=== PATIENT | female | born 1970 | race Caucasian/White ===

== ENCOUNTER 2020-01-14 09:27 | Inpatient (IN) | payer BC, SELFPAY ==
[2020-01-14] VITALS (31 sets, daily range): BP systolic 91–136; BP diastolic 51–91; PULSE 57–98; RESP 18–20; TEMP 36.9–37.7; O2SAT 95–100; BMI 25.6; BMI 26.8
--- NOTE | 2020-01-14 09:56 | HMH.EDGENADL ---
ED Disposition Clinical Impression: Vaginal bleeding, Blood loss anemia Uterine fibroid Qualifiers: Uterine leiomyoma location: unspecified location Qualified Code(s): D25.9 - Leiomyoma of uterus, unspecified Disposition: Admitted as Observation Condition on Discharge: Fair - Critical Care Critical Care Time: No Attestation: On , the high probability of a clinically significant, sudden or life threatening deterioration of the following system(s) required my full and direct attention, intervention and personal management. The time I documented below is in addition to time spent performing reported procedures but includes the following listed in this critical care notation. Medical Decision Making - Js Inquiry Pt receiving controlled substance: No Vital Signs: 01/14/20 09:34 01/14/20 11:09 01/14/20 11:28 Temperature 98.5 F Temperature Source Oral Pulse Rate Pulse Rate [Left Radial] 92 H 72 84 Respiratory Rate 18 18 20 Blood Pressure Blood Pressure [Left Arm] 136/91 H 135/85 126/79 Blood Pressure Mean [Left Arm] 106 101 94 Blood Pressure Source Blood Pressure Source [Left Arm] Automatic Cuff Automatic Cuff Blood Pressure Position Blood Pressure Position [Left Arm] Sitting Sitting 02 Sat by Pulse Oximetry 100 96 98 Oxygen Delivery Method Room Air Room Air Room Air 01/14/20 12:55 01/14/20 13:26 01/14/20 13:28 Temperature Temperature Source Pulse Rate Pulse Rate [Left Radial] 81 58 L 57 L Respiratory Rate 18 18 Blood Pressure Blood Pressure [Left Arm] 119/75 116/69 123/75 Blood Pressure Mean [Left Arm] 89 84 91 Blood Pressure Source Blood Pressure Source [Left Arm] Automatic Cuff Automatic Cuff Automatic Cuff Blood Pressure Position Blood Pressure Position [Left Arm] Sitting Sitting Sitting 02 Sat by Pulse Oximetry 98 96 96 Oxygen Delivery Method Room Air Room Air Room Air 01/14/20 13:30 01/14/20 13:33 01/14/20 13:36 Temperature Temperature Source Pulse Rate Pulse Rate [Left Radial] 70 70 72 Respiratory Rate 18 18 Blood Pressure Blood Pressure [Left Arm] 97/61 L 107/67 L 107/67 L Blood Pressure Mean [Left Arm] 73 80 80 Blood Pressure Source Blood Pressure Source [Left Arm] Automatic Cuff Automatic Cuff Blood Pressure Position Blood Pressure Position [Left Arm] Sitting Sitting 02 Sat by Pulse Oximetry 98 98 Oxygen Delivery Method Room Air Room Air 01/14/20 13:41 Temperature 98.5 F Temperature Source Pulse Rate 70 Pulse Rate [Left Radial] Respiratory Rate 18 Blood Pressure 106/70 L Blood Pressure [Left Arm] Blood Pressure Mean [Left Arm] Blood Pressure Source Automatic Cuff Blood Pressure Source [Left Arm] Blood Pressure Position Sitting Blood Pressure Position [Left Arm] 02 Sat by Pulse Oximetry Oxygen Delivery Method Room Air - Lab Data Lab results reviewed: Yes: I reviewed the patient's lab results. Lab Results 01/14/20 10:00: WBC 6.5, RBC 3.62 L, Hgb 9.1 L, Hct 28.2 L, MCV 78.0 L, MCH 25.2 L, MCHC 32.4, RDW 16.4, Plt Count 207, MPV 7.9, Neut % (Auto) 68.9, Lymph % (Auto) 23.5, [place] % (Auto) 4.6, Eos % (Auto) 2.7, Baso % (Auto) 0.4, Neut # (Auto) 4.5, Lymph # (Auto) 1.5, [place] # (Auto) 0.3, Eos # (Auto) 0.2, Baso # (Auto) 0.0 01/14/20 10:00: Sodium 136, Potassium 4.2, Chloride 107, Carbon Dioxide 20 L, Anion Gap 13.2, BUN 12, Creatinine 0.80, Estimated Creat Clear 87, Estimated GFR 77, Est GFR ( Amer) 93, Glucose 442 H*, Calcium 10.5 H, Total Bilirubin 0.3, AST 11 L, ALT 14, Alkaline Phosphatase 74, Total Protein 7.0, Albumin 4.0, Globulin 3.0, Albumin/Globulin Ratio 1.3 01/14/20 10:00: Serum HCG, Qual Negative 01/14/20 10:00: SARS-CoV-2 IgG Ab (Rapid) Positive A, SARS-CoV-2 IgM Ab (Rapid) Negative 01/14/20 12:22: Blood Type A Positive, Antibody Screen Negative, Crossmatch (AHG) See Detail Result diagrams: 01/14/20 16:42 01/14/20 10:00 Orders (Tests/Meds): ED MEDICATIONS Generic Name Dose Route S
[2020-01-14 10:16] LABS: Basophils % 0.4 % (0.1-2.0); Eosinophils # 0.2 K/mm3 (0.0-0.4); Eosinophils % 2.7 % (0.1-12.0); Hematocrit 28.2 % (37.0-47.0); Hemoglobin 9.1 g/dL (12.2-16.2); Lymphocytes # 1.5 K/mm3 (0.7-4.5); Lymphocytes % 23.5 % (10-50); Mean Corpuscular HGB Conc 32.4 g/dL (31.8-35.4); Mean Corpuscular Hemoglobin 25.2 pg (27.0-31.2); Mean Platelet Volume 7.9 fl (7.4-10.4); Monocytes # 0.3 K/mm3 (0.1-1.0); Monocytes % 4.6 % (1.7-9.3); Neutrophils # 4.5 K/mm3 (1.8-7.8); Neutrophils % 68.9 % (37.0-80.0); Platelet Count 207 K/mm3 (142-424); Red Blood Count 3.62 M/mm3 (4.20-5.40); Red Cell Distribution Width 16.4 % (11.5-17.5); White Blood Count 6.5 K/mm3 (4.8-10.8)
[2020-01-14 10:17] LABS: Chloride 107 mmol/L (98-107)
[2020-01-14 10:18] LABS: Potassium 4.2 mmoL/L (3.5-5.1); Sodium 136 mmol/L (136-145)
[2020-01-14 10:20] LABS: Alanine Aminotransferase 14 U/L (12-78); Aspartate Amino Transferase 11 U/L (14-36); Blood Urea Nitrogen 12 mg/dl (7-17); Creatinine Clearance Estimated 87 mL/min (50-200); Estimated Glomerular Filt Rate 77 ml/min (>60); GFR (African American) 93 ML/MIN (>60)
[2020-01-14 10:21] LABS: Albumin/Globulin Ratio 1.3 (1.1-1.8); Alkaline Phosphatase 74 U/L (38-126); Anion Gap 13.2 mEq/L (5-15); Bilirubin,Total 0.3 mg/dl (0.2-1.3); Calcium 10.5 mg/dl (8.4-10.2); Carbon Dioxide 20 mmol/L (22.0-30.0)
[2020-01-14 10:24] LABS: Glucose 442 mg/dl (74-100)
--- NOTE | 2020-01-14 10:24 | PC.NURSE ---
elevated glucose reported to dr baca. awaiting further orders.
[2020-01-14 10:26] LABS: HCG Qualitative, Serum Negative (Negative)
--- NOTE | 2020-01-14 10:27 | PC.NURSE ---
assisted MD with pelvic exam at this time
--- NOTE | 2020-01-14 10:30 | PC.NURSE ---
DR STEVENS SPEAKING TO DR ALFARO
--- NOTE | 2020-01-14 10:37 | US_ITS ---
PROCEDURE: US PELVIC CLINICAL INDICATION: vaginal bleeding, enlarged uterus COMPARISON: No exams were available for comparison FINDINGS: The uterus is enlarged at 16 by 11 x 11 cm. The endometrium is thickened at 1.8 cm. There are multiple uterine fibroids with at least 6 which are measured measuring at 7 x 6.8 cm, 3 x 2.9 cm, 2.8 x 3.4 cm, 2 x 1.7 cm, 4.2 x 2.9 cm, 2.7 x 2.2 cm. No adnexal mass evident. No cul-de-sac fluid. IMPRESSION: Enlarged uterus with multiple uterine fibroids Dictated by: Emre Pinon MD 01/14/2020 15:02 Emre Pinon MD in OV 01/14/2020 15:02
--- NOTE | 2020-01-14 10:41 | PC.NURSE ---
Dr Caprice interiano
--- NOTE | 2020-01-14 10:41 | PC.NURSE ---
Dr Hurley speaking with Dr Vasques
--- NOTE | 2020-01-14 10:46 | PC.NURSE ---
Dr Vincent interiano
--- NOTE | 2020-01-14 11:14 | PC.NURSE ---
positive igg results given to dr baca. awaiting new orders.
[2020-01-14 11:15] LABS: Coronavirus 19 IgG Antibody Positive (Negative); Coronavirus 19 IgM Antibody Negative (Negative)
--- NOTE | 2020-01-14 11:38 | PC.NURSE ---
pt to ultrasound
--- NOTE | 2020-01-14 11:44 | PC.NURSE ---
contacted lab to check on type and screen being drawn on pt. Notified lab that pt is going to ultrasound at this time
--- NOTE | 2020-01-14 12:28 | PC.NURSE ---
pt return from radiology, lab at [facility]
--- NOTE | 2020-01-14 12:47 | PC.NURSE ---
entered room to administer insulin as ordered per JUN, pt reports she has taken her insulin since being here in the ER states is was approx 2 hours ago. fsbs [id number] at this time notified ER MD who states not to give insulin.
[2020-01-14 12:49] LABS: POC Glucose,Bedside 377 (70-110)
--- NOTE | 2020-01-14 12:50 | PC.NURSE ---
Spoke with ER staff to clarify if patient is to be admitted to Med Surg or OB. Per Angelique, who clarified with Dr Hurley, pt is to be admitted to Med Surg for Dr Perez with Dr Vasques consulting.
--- NOTE | 2020-01-14 13:24 | PC.NURSE ---
report called to jesika nguyen rn on second floor at this time
--- NOTE | 2020-01-14 13:30 | PC.NURSE ---
pt significant other comes out of room states pt just passed a large blood clot. Entered room to check on pt, pt reports nauseated, pale in color, c/o lower back pain and lower abd pain. Blood clot trash can noted to be approx baseball size. Pt reports pain began after passing blood clot. Notified ER MD, ER MD at . ER MD gave verbal orders for pt. will continue to monitor.
--- NOTE | 2020-01-14 13:41 | PC.NURSE ---
gave updated report to ruchirn on second floor at this time, r/t pt passing blood clot and medications administered per mar and new VS.
--- NOTE | 2020-01-14 14:14 | HMH.CONS ---
*Admission Date: 01/14/20 *Reason for consult:: Medical management of anticoagulation *History of present illness: Description of Symptoms (Recalled from ER Triage Doc. by RN): Pt reports heavy vaginal bleeding for approx 1 week, pt reports menstrual type cramping, no clots noted, bright red blood. Pt states is using 1 pad approx every 2-3 hours. Pt reports feeling weak for 2-3 days. Pt reports she is on blood thinners r/t hx of CVA. Pt states approx 3 months ago she was admitted to [facility], [place] and recieved a blood transfusion r/t heavy menstrual bleeding. Pt states she was started on Megestrol BID to help with heavy bleeding. Pt states she missed 3 doses when she first began her menstural period this month r/t being out of her medication. - History of Present Illness HPI narrative: Complains of heavy vaginal bleeding for 1 week with pelvic cramping. Using 1 pad every 2-3 hours. No syncope. She says she had the same thing about 3 months ago and was admitted for 3 days to [facility] in [place] and received a transfusion. She says that she was told she has a fibroid. She was started on megestrol acetate. She says that she missed 3 days of that medication because she could not get to the pharmacy to filler picker the prescription and after she restarted the medication the bleeding started. She says she was supposed to see a product design engineer for follow-up after her admission but never did because she was busy with work and family matters. She is on Eliquis because of previous CVA. She moved here about a month and a half ago. She does not yet have a physician or product design engineer in this area. Her primary care doctor is in [place] also. Above note per emergency room doctor. Patient was in her normal state of health until July of this year when she suffered a stroke and was confined to [facility] for about a week. She has a residual expressive aphasia and also underwent rehabilitation stay at [facility]. Work-up to determine the cause of her stroke was extensive and during this work-up she was found to have heterozygosity for factor V Leiden deficiency. Referred to hematology-she cannot remember the name-and she was started on Eliquis 5 mg twice daily and antiplatelet therapy was continued. Her neurologist has told her that he does not think the factor V Leiden deficiency caused her stroke but that it was from blood pressure and stress. Even before the stroke she had some problems with significant menorrhagia, but after Eliquis was started she began to bleed even more heavily. She was admitted to [facility] as noted above 3 months ago, received blood transfusions and discussions are a hysterectomy were undertaken but this was not done. Megestrol was prescribed, she, as noted above has not been compliant on a daily basis with this and came back to the [facility] emergency room this morning with significant bleeding and was anemic. Admitted to gynecology service. 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 Lives with boyfriend and her 17-year-old daughter who is currently 18 weeks Family Hx:: Cancer, Coronary Artery Disease, Stroke Review of Systems - Review of Systems Review of systems:: pertinent sys
--- NOTE | 2020-01-14 14:30 | PC.NURSE ---
PINK PAD WEIGHT OF 77GMS AT THIS TIME, PATIENT REPORTS PASSING SOFTBALL SIZED CLOT.
--- NOTE | 2020-01-14 15:30 | PC.NURSE ---
peach pad weight of 51 gms
--- NOTE | 2020-01-14 16:20 | PC.NURSE ---
dr. carrion at bedside. report given
--- NOTE | 2020-01-14 16:39 | HMH.HP ---
*Admission Date: 01/14/20 *Chief complaint: Heavy vaginal bleeding, fibroid uterus, anemia, insulin-dependent diabetes *History of present illness: She is a 49-year-old 3 para 2 aborta 1 who complains of heavy vaginal bleeding for 1 week with pelvic cramping. Using 1 pad every 2-3 hours. No syncope. She says she had the same thing about 3 months ago and was admitted for 3 days to [facility] in [place] and received a transfusion. She says that she was told she has a fibroid. She was started on megestrol acetate. She says that she missed 3 days of that medication because she could not get to the pharmacy to spanish moss picker the prescription and after she restarted the medication the bleeding started. She says she was supposed to see a feather sawyer for follow-up after her admission but never did because she was busy with work and family matters. She is on Eliquis because of previous CVA that happened in September of this year. She is known to have factor V Leiden. Ultrasound today shows that she has at least 6 fibroids within the umbilicus. Her hemoglobin is just over 9. She looks pale. She moved here about a month and a half ago. She does not yet have a physician or feather sawyer in this area. Her primary care doctor is in [place] also. She is a diabetic and does not have a la. She says she takes 53 units a day of insulin and today her blood sugar is over 400. [facility] History I have reviewed the patient's past medical history: Yes Medical History: Reports:: Cerebrovascular Accident, Diabetes Mellitus Type 2, Hyperlipidemia, Hypertension, Migraine Denies:: Cancer, Diabetes Mellitus Type 1, MRSA *Have you ever received a pneumonia vaccine?: No *Have you received a flu vaccine this season?: No Other Medical History: Reports: Anemia Other Surgeries: Yes: Tubal Ligation, Other (Back surgery in the remote past) Amputation: No Fractures: No - *Social History Last grade of school completed: Some college Smoking Status: Never smoker Alcohol Intake: never *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[employer]) Housing: house Household Members: significant other, children *Travel in the last 8 weeks: None Family Hx:: Cancer, Coronary Artery Disease, Stroke Review of Systems - Review of Systems Review of systems:: pertinent systems reviewed and negative unless documented below - *Neurologic Reports abnormal speech, Reports dizziness, Reports headache(s), Denies abnormal walking, Denies abnormal hearing, Denies seizure-like activity, Denies frequent falls Meds Home Medications Medication Instructions Recorded Confirmed Type Apixaban [Eliquis] 5 mg PO BID 01/14/20 01/14/20 History Ascorbic Acid [Vitamin C 500mg 500 mg PO DAILY 01/14/20 01/14/20 History tablet] Atorvastatin Calcium [Lipitor 80mg 80 mg PO HS 01/14/20 01/14/20 History Tablet*] Butalb/Acetaminophen/Caffeine 1 each PO NEEDED PRN 01/14/20 01/14/20 History [Fioricet 50-300-40 mg Capsule] Ferrous Sulfate [Slow Fe] 142 mg PO DAILY 01/14/20 01/14/20 History Insulin Detemir [Levemir 53 unit SQ DAILY 01/14/20 01/14/20 History 100units/mL 3mL flexpen] Metoprolol Succinate [Metoprolol 12.5 mg PO BID 01/14/20 01/14/20 History Succinate 25mg Tablet*] Pantoprazole Sodium [Protonix 40mg 40 mg PO DAILY 01/14/20 01/14/20 History tablet] Potassium Chloride 20 meq PO DAILY 01/14/20 01/14/20 History Sertraline HCl [Zoloft] 150 mg PO DAILY 01/14/20 01/14/20 History Topiramate 50 mg PO DAILY 01/14/20 01/14/20 History Allergies Allergy/AdvReac Type Severity Reaction Status Date / Time No Known Allergies Allergy Verified 01/14/20 09:49 Exam Vital signs and Labs for Last 24 Hours: Temp Pulse Resp BP Pulse Ox 98.6 F 72 18 113/66 99 01/14/20 16:00 01/14/20 16:00 01/14/20 16:00 01/14/20 16:00 01/14/20 16:00 Laboratory Results - last 24 hr 01/14/20 10:00: WBC 6.5, RBC 3.62 L, Hgb 9.1 L, Hct 28.2 L, MCV 78.0 L,
[2020-01-14 16:43] LABS: POC Glucose,Bedside 477 (70-110)
--- NOTE | 2020-01-14 17:00 | PC.NURSE ---
peach pad weighed at this time 67gms. Silver dollar size clot noted in toilet
[2020-01-14 17:26] LABS: Basophils % 0.2 % (0.1-2.0); Eosinophils # 0.1 K/mm3 (0.0-0.4); Eosinophils % 1.7 % (0.1-12.0); Lymphocytes # 1.2 K/mm3 (0.7-4.5); Lymphocytes % 14.4 % (10-50); Mean Corpuscular HGB Conc 31.1 g/dL (31.8-35.4); Mean Corpuscular Hemoglobin 25.2 pg (27.0-31.2); Mean Corpuscular Volume 80.9 fl (81-99); Mean Platelet Volume 8.2 fl (7.4-10.4); Monocytes # 0.4 K/mm3 (0.1-1.0); Monocytes % 4.4 % (1.7-9.3); Neutrophils # 6.5 K/mm3 (1.8-7.8); Neutrophils % 79.4 % (37.0-80.0); Platelet Count 198 K/mm3 (142-424); Red Blood Count 3.03 M/mm3 (4.20-5.40); Red Cell Distribution Width 16.4 % (11.5-17.5); White Blood Count 8.1 K/mm3 (4.8-10.8)
[2020-01-14 17:29] LABS: Hematocrit 24.5 % (37.0-47.0); Hemoglobin 7.6 g/dL (12.2-16.2)
--- NOTE | 2020-01-14 19:33 | PC.NURSE ---
Pt is alert and oriented and able to make needs known. Pt is recieving blood, Dr. Vasques notified of critical hgb. CB in reach. Lungs cta. Has continued to have bleeding- see documentation. VSS at this time. Continues on RA. Dr. Vasques also notified of 477 blood suagr and ordered 30 units ssi. Pt tolerated well. Dr. Kaur also ordered megace per jun.
[2020-01-14 20:20] LABS: POC Glucose,Bedside 333 (70-110)
--- NOTE | 2020-01-14 20:44 | PC.NURSE ---
peach pad weight at 63 grams.saturated with bright red blood and a half dollar size clot noted in toilet
[2020-01-15] VITALS (7 sets, daily range): BP systolic 104–131; BP diastolic 60–86; PULSE 74–97; RESP 16–19; TEMP 36.9–37.5; O2SAT 97–99; BMI 27.8
[2020-01-15 00:33] LABS: Hematocrit 30.1 % (37.0-47.0)
[2020-01-15 00:35] LABS: Hemoglobin 10.2 g/dL (12.2-16.2)
--- NOTE | 2020-01-15 03:41 | PC.NURSE ---
Pt is alert and oriented x4. Rested well with eyes closed this shift. No acute changes noted from previous shift. Tolerated 2 units of blood well with no complaints. Skin noted pallor in color. PERRLA. Bilateral hand examining officer noted equal and strong. Cap refill < 3 seconds. Bilateral breath sounds noted clear t/o upon auscultation. Tolerated RA well with no c/o SOA. RR noted even and unlabored. Pt c/o abdominal cramping t/o shift. Urine noted with hematuria and small/large blood clots. Adequate urine output noted. Abdomen noted non-tender upon palpation, soft and round. No edema noted. Refused TEDS. VSS. Remains safe. Remains NPO since 0000. Call light within reach. Will continue to monitor.
--- NOTE | 2020-01-15 05:25 | PC.NURSE ---
[place] pad saturated with blood noted at a wt of 73 gm this am. Hematuria noted at 400 ml output. Small blood clots noted. Pt bled through bed sheets unknowingly while resting with eyes closed. Unable to weigh this blood due to being dried.
[2020-01-15 05:31] LABS: POC Glucose,Bedside 216 (70-110)
[2020-01-15 06:43] LABS: Basophils % 0.4 % (0.1-2.0); Eosinophils # 0.2 K/mm3 (0.0-0.4); Eosinophils % 2.4 % (0.1-12.0); Hematocrit 28.4 % (37.0-47.0); Hemoglobin 9.5 g/dL (12.2-16.2); Lymphocytes # 1.8 K/mm3 (0.7-4.5); Lymphocytes % 23.2 % (10-50); Mean Corpuscular HGB Conc 33.6 g/dL (31.8-35.4); Mean Corpuscular Hemoglobin 27.1 pg (27.0-31.2); Mean Corpuscular Volume 80.8 fl (81-99); Mean Platelet Volume 8.2 fl (7.4-10.4); Monocytes # 0.4 K/mm3 (0.1-1.0); Monocytes % 5.6 % (1.7-9.3); Neutrophils # 5.3 K/mm3 (1.8-7.8); Neutrophils % 68.5 % (37.0-80.0); Platelet Count 193 K/mm3 (142-424); Red Blood Count 3.52 M/mm3 (4.20-5.40); Red Cell Distribution Width 18.2 % (11.5-17.5); White Blood Count 7.8 K/mm3 (4.8-10.8)
[2020-01-15 06:50] LABS: Chloride 110 mmol/L (98-107); Potassium 3.8 mmoL/L (3.5-5.1); Sodium 140 mmol/L (136-145)
[2020-01-15 06:53] LABS: Anion Gap 12.8 mEq/L (5-15); Blood Urea Nitrogen 11 mg/dl (7-17); Calcium 9.8 mg/dl (8.4-10.2); Carbon Dioxide 21 mmol/L (22.0-30.0); Creatinine Clearance Estimated 105 mL/min (50-200); Estimated Glomerular Filt Rate 90 ml/min (>60); GFR (African American) 109 ML/MIN (>60); Glucose 230 mg/dl (74-100)
--- NOTE | 2020-01-15 08:22 | P.CONPHA_ITS ---
[facility] Pharmacy VTE Monitoring - Patient Demographics Admission date: 01/15/20 Report Date: 01/15/20 Time: 08:22 Allergies/Adverse Reactions: Patient Allergies No Known Allergies Allergy (Verified 01/14/20 09:49) Height: 1.55 m Weight: 66.723 kg Patient Problems: Current Active Problems Vaginal bleeding (Acute) Uterine fibroid (Acute) Blood loss anemia (Acute) Factor V Leiden mutation (Acute) History of stroke (Acute) - VTE Risk Labs: VTE Related Lab Results Hgb 9.5 g/dL (12.2-16.2) L 01/15/20 06:30 Hct 28.4 % (37.0-47.0) L 01/15/20 06:30 Plt Count 193 K/mm3 (142-424) 01/15/20 06:30 BUN 11 mg/dl (7-17) 01/15/20 06:30 Creatinine 0.70 mg/dl (0.52-1.04) 01/15/20 06:30 Estimated Creat Clear 105 mL/min (50-200) 01/15/20 06:30 Was VTE Risk Assessment Performed: Yes VTE Score: 4 VTE Risk Level: Low Risk Clinical Trial Participant: No - Prophylaxis VTE Prophylaxis Ordered?: Yes Types of VTE Prophylaxis: TEDS Knee High, Pharmacological Pharmacologic Type: Enoxaparin
--- NOTE | 2020-01-15 08:38 | HMH.PHAINT ---
home medication reconciliation completed using list from home pharmacy
--- NOTE | 2020-01-15 08:45 | HMH.ACPN2 ---
Internal Medicine - PN: Subj *Date: 01/15/20 *Time: 08:45 Interval history: Internal medicine consult follow-up note: Patient received 2 units of packed cells overnight. Feels a little bit better energy curtis. Reports bleeding is about the same. Glucose control has been adequate on sliding scale insulin. Exam Vital signs and Labs for Last 24 Hours: Temp Pulse Resp BP Pulse Ox 98.4 F 80 19 131/78 99 01/15/20 08:00 01/15/20 08:00 01/15/20 08:00 01/15/20 08:00 01/15/20 08:00 Laboratory Results - last 24 hr 01/14/20 10:00: WBC 6.5, RBC 3.62 L, Hgb 9.1 L, Hct 28.2 L, MCV 78.0 L, MCH 25.2 L, MCHC 32.4, RDW 16.4, Plt Count 207, MPV 7.9, Neut % (Auto) 68.9, Lymph % (Auto) 23.5, [place] % (Auto) 4.6, Eos % (Auto) 2.7, Baso % (Auto) 0.4, Neut # (Auto) 4.5, Lymph # (Auto) 1.5, [place] # (Auto) 0.3, Eos # (Auto) 0.2, Baso # (Auto) 0.0 01/14/20 10:00: Sodium 136, Potassium 4.2, Chloride 107, Carbon Dioxide 20 L, Anion Gap 13.2, BUN 12, Creatinine 0.80, Estimated Creat Clear 87, Estimated GFR 77, Est GFR ( Amer) 93, Glucose 442 H*, Calcium 10.5 H, Total Bilirubin 0.3, AST 11 L, ALT 14, Alkaline Phosphatase 74, Total Protein 7.0, Albumin 4.0, Globulin 3.0, Albumin/Globulin Ratio 1.3 01/14/20 10:00: Serum HCG, Qual Negative 01/14/20 10:00: SARS-CoV-2 IgG Ab (Rapid) Positive A, SARS-CoV-2 IgM Ab (Rapid) Negative 01/14/20 12:22: Blood Type A Positive, Antibody Screen Negative, Crossmatch (AHG) See Detail 01/14/20 12:42: POC Glucose 377 H* 01/14/20 13:06: Blood Type Confirm A Positive 01/14/20 16:36: POC Glucose 477 H* 01/14/20 16:42: WBC 8.1, RBC 3.03 L, Hgb 7.6 L*, Hct 24.5 L, MCV 80.9 L, MCH 25.2 L, MCHC 31.1 L, RDW 16.4, Plt Count 198, MPV 8.2, Neut % (Auto) 79.4, Lymph % (Auto) 14.4, [place] % (Auto) 4.4, Eos % (Auto) 1.7, Baso % (Auto) 0.2, Neut # (Auto) 6.5, Lymph # (Auto) 1.2, [place] # (Auto) 0.4, Eos # (Auto) 0.1, Baso # (Auto) 0.0 01/14/20 20:10: POC Glucose 333 H* 01/15/20 00:28: Hgb 10.2 L D, Hct 30.1 L 01/15/20 05:14: POC Glucose 216 H 01/15/20 06:30: WBC 7.8, RBC 3.52 L, Hgb 9.5 L, Hct 28.4 L, MCV 80.8 L, MCH 27.1, MCHC 33.6, RDW 18.2 H, Plt Count 193, MPV 8.2, Neut % (Auto) 68.5, Lymph % (Auto) 23.2, [place] % (Auto) 5.6, Eos % (Auto) 2.4, Baso % (Auto) 0.4, Neut # (Auto) 5.3, Lymph # (Auto) 1.8, [place] # (Auto) 0.4, Eos # (Auto) 0.2, Baso # (Auto) 0.0 01/15/20 06:30: Sodium 140, Potassium 3.8, Chloride 110 H, Carbon Dioxide 21 L, Anion Gap 12.8, BUN 11, Creatinine 0.70, Estimated Creat Clear 105, Estimated GFR 90, Est GFR ( Amer) 109, Glucose 230 H D, Calcium 9.8 I & O for Last 24 hours: Intake & Output 01/12/20 01/13/20 01/14/20 01/15/20 11:59 11:59 11:59 11:59 Intake Total 3410 / 3410 Output Total 400 / 400 Balance 3010 / 3010 Weight 140 lb 147 lb 1.6 oz Narrative: Pleasant, talkative, less pale. Lungs clear, heart rate regular. Abdomen soft. No neurologic deficits. No edema. Assessment and Plan (1) Factor V Leiden mutation Current visit: Yes Status: Acute Category: Medical Code(s): D68.51 - Activated protein C resistance (2) History of stroke Current visit: Yes Status: Acute Category: Medical Code(s): Z86.73 - Personal history of transient ischemic attack (TIA), and cerebral infarction without residual deficits (3) Vaginal bleeding Current visit: Yes Status: Acute Category: Medical Code(s): N93.9 - Abnormal uterine and vaginal bleeding, unspecified (4) Uterine fibroid Current visit: Yes Status: Acute Qualifiers: Uterine leiomyoma location: unspecified location Qualified Code(s): D25.9 - Leiomyoma of uterus, unspecified Category: Medical Code(s): D25.9 - Leiomyoma of uterus, unspecified (5) Blood loss anemia Current visit: Yes Status: Acute Category: Medical Code(s): D50.0 - Iron deficiency anemia secondary to blood loss (chronic) - Assessment and plan all Dx Assessment and Plan for all problems:: Given questionable indication f
--- NOTE | 2020-01-15 09:10 | HMH.ACPN2 ---
Internal Medicine - PN: Subj *Date: 01/15/20 *Time: 09:10 Interval history: She is doing a little better although she continues to have active vaginal bleeding. She says that she soaked a couple of pads overnight again. She received blood yesterday and her hemoglobin went to 10.2 after the transfusion. This morning it is 9.5. She denies any shortness of breath or chest pain. She denies any calf tenderness. She is receiving Lovenox 40 mEq subcutaneous daily. She has stopped her Eliquis. Her last dose was yesterday morning. Exam Vital signs and Labs for Last 24 Hours: Temp Pulse Resp BP Pulse Ox 98.4 F 80 19 131/78 99 01/15/20 08:00 01/15/20 08:00 01/15/20 08:00 01/15/20 08:00 01/15/20 08:00 Laboratory Results - last 24 hr 01/14/20 10:00: WBC 6.5, RBC 3.62 L, Hgb 9.1 L, Hct 28.2 L, MCV 78.0 L, MCH 25.2 L, MCHC 32.4, RDW 16.4, Plt Count 207, MPV 7.9, Neut % (Auto) 68.9, Lymph % (Auto) 23.5, [place] % (Auto) 4.6, Eos % (Auto) 2.7, Baso % (Auto) 0.4, Neut # (Auto) 4.5, Lymph # (Auto) 1.5, [place] # (Auto) 0.3, Eos # (Auto) 0.2, Baso # (Auto) 0.0 01/14/20 10:00: Sodium 136, Potassium 4.2, Chloride 107, Carbon Dioxide 20 L, Anion Gap 13.2, BUN 12, Creatinine 0.80, Estimated Creat Clear 87, Estimated GFR 77, Est GFR ( Amer) 93, Glucose 442 H*, Calcium 10.5 H, Total Bilirubin 0.3, AST 11 L, ALT 14, Alkaline Phosphatase 74, Total Protein 7.0, Albumin 4.0, Globulin 3.0, Albumin/Globulin Ratio 1.3 01/14/20 10:00: Serum HCG, Qual Negative 01/14/20 10:00: SARS-CoV-2 IgG Ab (Rapid) Positive A, SARS-CoV-2 IgM Ab (Rapid) Negative 01/14/20 12:22: Blood Type A Positive, Antibody Screen Negative, Crossmatch (AHG) See Detail 01/14/20 12:42: POC Glucose 377 H* 01/14/20 13:06: Blood Type Confirm A Positive 01/14/20 16:36: POC Glucose 477 H* 01/14/20 16:42: WBC 8.1, RBC 3.03 L, Hgb 7.6 L*, Hct 24.5 L, MCV 80.9 L, MCH 25.2 L, MCHC 31.1 L, RDW 16.4, Plt Count 198, MPV 8.2, Neut % (Auto) 79.4, Lymph % (Auto) 14.4, [place] % (Auto) 4.4, Eos % (Auto) 1.7, Baso % (Auto) 0.2, Neut # (Auto) 6.5, Lymph # (Auto) 1.2, [place] # (Auto) 0.4, Eos # (Auto) 0.1, Baso # (Auto) 0.0 01/14/20 20:10: POC Glucose 333 H* 01/15/20 00:28: Hgb 10.2 L D, Hct 30.1 L 01/15/20 05:14: POC Glucose 216 H 01/15/20 06:30: WBC 7.8, RBC 3.52 L, Hgb 9.5 L, Hct 28.4 L, MCV 80.8 L, MCH 27.1, MCHC 33.6, RDW 18.2 H, Plt Count 193, MPV 8.2, Neut % (Auto) 68.5, Lymph % (Auto) 23.2, [place] % (Auto) 5.6, Eos % (Auto) 2.4, Baso % (Auto) 0.4, Neut # (Auto) 5.3, Lymph # (Auto) 1.8, [place] # (Auto) 0.4, Eos # (Auto) 0.2, Baso # (Auto) 0.0 01/15/20 06:30: Sodium 140, Potassium 3.8, Chloride 110 H, Carbon Dioxide 21 L, Anion Gap 12.8, BUN 11, Creatinine 0.70, Estimated Creat Clear 105, Estimated GFR 90, Est GFR ( Amer) 109, Glucose 230 H D, Calcium 9.8 I & O for Last 24 hours: Intake & Output 01/12/20 01/13/20 01/14/20 01/15/20 11:59 11:59 11:59 11:59 Intake Total 3410 / 3410 Output Total 400 / 400 Balance 3010 / 3010 Weight 140 lb 147 lb 1.6 oz - Constitutional no acute distress - *Routine HEENT Exam Head: Present: normocephalic Eye: Present: EOMI, PERRL ENT: Present: mucous membranes moist Assessment and Plan (1) Factor V Leiden mutation Current visit: Yes Status: Acute Category: Medical Code(s): D68.51 - Activated protein C resistance (2) History of stroke Current visit: Yes Status: Acute Category: Medical Code(s): Z86.73 - Personal history of transient ischemic attack (TIA), and cerebral infarction without residual deficits (3) Vaginal bleeding Current visit: Yes Status: Acute Category: Medical Code(s): N93.9 - Abnormal uterine and vaginal bleeding, unspecified (4) Uterine fibroid Current visit: Yes Status: Acute Qualifiers: Uterine leiomyoma location: unspecified location Qualified Code(s): D25.9 - Leiomyoma of uterus, unspecified Category: Medical Code(s): D25.9 - Leiomyoma of uterus, unspecified (5) Blood l
[2020-01-15 11:24] LABS: POC Glucose,Bedside 392 (70-110)
[2020-01-15 16:05] LABS: POC Glucose,Bedside 393 (70-110)
--- NOTE | 2020-01-15 17:06 | HMH.ACPN2 ---
Internal Medicine - PN: Subj *Date: 01/15/20 *Time: 17:06 Interval history: She is doing well but continues to bleed. She has had about 7 or 8 pads all day today. She says that they are soaked. We have scheduled her for a total bowel history tomorrow morning. We will make arrangements for her to have blood counts as well as 2 more units of blood on hold. Exam Vital signs and Labs for Last 24 Hours: Temp Pulse Resp BP Pulse Ox 98.4 F 80 19 131/78 99 01/15/20 08:00 01/15/20 09:00 01/15/20 09:00 01/15/20 08:00 01/15/20 09:00 Laboratory Results - last 24 hr 01/14/20 12:22: Blood Type A Positive, Antibody Screen Negative, Crossmatch (AHG) See Detail 01/14/20 16:42: WBC 8.1, RBC 3.03 L, Hgb 7.6 L*, Hct 24.5 L, MCV 80.9 L, MCH 25.2 L, MCHC 31.1 L, RDW 16.4, Plt Count 198, MPV 8.2, Neut % (Auto) 79.4, Lymph % (Auto) 14.4, [place] % (Auto) 4.4, Eos % (Auto) 1.7, Baso % (Auto) 0.2, Neut # (Auto) 6.5, Lymph # (Auto) 1.2, [place] # (Auto) 0.4, Eos # (Auto) 0.1, Baso # (Auto) 0.0 01/14/20 20:10: POC Glucose 333 H* 01/15/20 00:28: Hgb 10.2 L D, Hct 30.1 L 01/15/20 05:14: POC Glucose 216 H 01/15/20 06:30: WBC 7.8, RBC 3.52 L, Hgb 9.5 L, Hct 28.4 L, MCV 80.8 L, MCH 27.1, MCHC 33.6, RDW 18.2 H, Plt Count 193, MPV 8.2, Neut % (Auto) 68.5, Lymph % (Auto) 23.2, [place] % (Auto) 5.6, Eos % (Auto) 2.4, Baso % (Auto) 0.4, Neut # (Auto) 5.3, Lymph # (Auto) 1.8, [place] # (Auto) 0.4, Eos # (Auto) 0.2, Baso # (Auto) 0.0 01/15/20 06:30: Sodium 140, Potassium 3.8, Chloride 110 H, Carbon Dioxide 21 L, Anion Gap 12.8, BUN 11, Creatinine 0.70, Estimated Creat Clear 105, Estimated GFR 90, Est GFR ( Amer) 109, Glucose 230 H D, Calcium 9.8 01/15/20 11:13: POC Glucose 392 H* 01/15/20 15:49: POC Glucose 393 H* I & O for Last 24 hours: Intake & Output 01/13/20 01/14/20 01/15/20 01/16/20 11:59 11:59 11:59 11:59 Intake Total 3410 / 3410 Output Total 400 / 400 1700 / 1700 Balance 3010 / 3010 -1700 / -1700 Weight 140 lb 147 lb 1.6 oz 147 lb 11.355 oz - Constitutional no acute distress - *Routine HEENT Exam Head: Present: normocephalic Eye: Present: EOMI, PERRL ENT: Present: mucous membranes moist Assessment and Plan (1) Factor V Leiden mutation Current visit: Yes Status: Acute Category: Medical Code(s): D68.51 - Activated protein C resistance (2) History of stroke Current visit: Yes Status: Acute Category: Medical Code(s): Z86.73 - Personal history of transient ischemic attack (TIA), and cerebral infarction without residual deficits (3) Vaginal bleeding Current visit: Yes Status: Acute Category: Medical Code(s): N93.9 - Abnormal uterine and vaginal bleeding, unspecified (4) Uterine fibroid Current visit: Yes Status: Acute Qualifiers: Uterine leiomyoma location: unspecified location Qualified Code(s): D25.9 - Leiomyoma of uterus, unspecified Category: Medical Code(s): D25.9 - Leiomyoma of uterus, unspecified (5) Blood loss anemia Current visit: Yes Status: Acute Category: Medical Code(s): D50.0 - Iron deficiency anemia secondary to blood loss (chronic) - Assessment and plan all Dx Assessment and Plan for all problems:: We have scheduled her for a total abdominal hysterectomy and bilateral salpingectomy in the morning. We discussed the risks of surgery that includes bleeding, infection, injuries to the bowel and bladder. We discussed the rare risk of injury to the ureter. We discussed the need for repair of the ureter if this happens. All questions were answered and consents were signed. We have typed and crossed her for 2 units of blood. We have ordered a CBC and a Chem-7 for the morning as well. We will hold her Lovenox in the morning. We will make sure she has compression hose during the surgery itself.
--- NOTE | 2020-01-15 18:30 | PC.NURSE ---
Pt has been pleasant and cooperative this shift. A&O X4. No complaints of pain. Pt is on room air with sats. >90%. Lungs CTA. No edema noted. Skin is C/D/I. Pt ambulates independently to/from the bathroom and voids without issue. Pt's urine has appeared bloody this shift due to vaginal discharge and numerous clots have been reported. No BM this shift. Saturated benitez-pads have been weighed in KG this shift and converted into ML, which are then recorded in the I&O intervention. 20 G peripheral IV in the RT AC is patent and infusing NS @ 75 ML/HR. VSS. Call light within reach. Will continue to monitor.
--- NOTE | 2020-01-15 19:12 | PC.NURSE ---
report given to tomasz
[2020-01-15 20:27] LABS: POC Glucose,Bedside 398 (70-110)
[2020-01-16] VITALS (31 sets, daily range): BP systolic 95–164; BP diastolic 55–95; PULSE 74–102; RESP 10–20; TEMP 36.7–43; O2SAT 90–100; BMI 27.6
--- NOTE | 2020-01-16 03:40 | PC.NURSE ---
Pt A&OX4. lungs CTA. pt denies SOA or pain. Pt ambulates independently to bathroom and voids without issue. Pt's urine has appeared bloody this shift due to vaginal discharge. No BM this shift. Saturated benitez-pads have been weighed in KG this shift and converted into ML, which are then recorded in the I&O intervention. pt has rested quietly this shift
[2020-01-16 06:47] LABS: Basophils % 0.3 % (0.1-2.0); Eosinophils # 0.1 K/mm3 (0.0-0.4); Eosinophils % 2.1 % (0.1-12.0); Lymphocytes # 1.3 K/mm3 (0.7-4.5); Lymphocytes % 20.8 % (10-50); Mean Corpuscular Hemoglobin 26.3 pg (27.0-31.2); Mean Corpuscular Volume 84.7 fl (81-99); Monocytes # 0.3 K/mm3 (0.1-1.0); Monocytes % 4.7 % (1.7-9.3); Neutrophils # 4.5 K/mm3 (1.8-7.8); Neutrophils % 72.1 % (37.0-80.0); Platelet Count 177 K/mm3 (142-424); Red Blood Count 2.81 M/mm3 (4.20-5.40); Red Cell Distribution Width 18.2 % (11.5-17.5); White Blood Count 6.2 K/mm3 (4.8-10.8)
[2020-01-16 06:53] LABS: Chloride 108 mmol/L (98-107); Potassium 4.2 mmoL/L (3.5-5.1); Sodium 137 mmol/L (136-145)
[2020-01-16 06:55] LABS: Blood Urea Nitrogen 9 mg/dl (7-17); Creatinine Clearance Estimated 104 mL/min (50-200); Estimated Glomerular Filt Rate 90 ml/min (>60); GFR (African American) 109 ML/MIN (>60)
[2020-01-16 06:56] LABS: Anion Gap 11.2 mEq/L (5-15); Calcium 9.6 mg/dl (8.4-10.2); Carbon Dioxide 22 mmol/L (22.0-30.0); Glucose 331 mg/dl (74-100)
--- NOTE | 2020-01-16 06:56 | PC.NURSE ---
patient off floor to surgery per staff .
[2020-01-16 07:05] LABS: Hematocrit 23.8 % (37.0-47.0); Hemoglobin 7.4 g/dL (12.2-16.2)
--- NOTE | 2020-01-16 07:09 | SUR.PREOP ---
0705- Simon PICKETT 2nd floor nurse called to report critical labs on pt. I notified Kyra PICKETTsurgical specialist nurse and printed labs. Anesthesia notified.
--- NOTE | 2020-01-16 07:21 | HMH.ACPN2 ---
Internal Medicine - PN: Subj *Date: 01/16/20 *Time: 17:22 Interval history: She was seen this afternoon after her surgery. Tolerated surgery well without incident. Required to units postop. Responded well. Surgical incision clean dry and intact. Having moderate to severe abdominal pain. Adjusting pain meds at the time of visiting with patient. Otherwise had no complaints, was tired. Denied nausea, shortness of breath, chest pain. Exam Vital signs and Labs for Last 24 Hours: Temp Pulse Resp BP Pulse Ox 98.9 F 89 18 95/55 L 98 01/16/20 04:07 01/16/20 04:07 01/16/20 04:07 01/16/20 04:07 01/16/20 04:07 Laboratory Results - last 24 hr 01/14/20 12:22: Blood Type A Positive, Antibody Screen Negative, Crossmatch (AHG) See Detail 01/15/20 11:13: POC Glucose 392 H* 01/15/20 15:49: POC Glucose 393 H* 01/15/20 20:14: POC Glucose 398 H* 01/16/20 06:30: WBC 6.2, RBC 2.81 L, Hgb 7.4 L* D, Hct 23.8 L*, MCV 84.7, MCH 26.3 L, MCHC 31.0 L, RDW 18.2 H, Plt Count 177, MPV 8.0, Neut % (Auto) 72.1, Lymph % (Auto) 20.8, [place] % (Auto) 4.7, Eos % (Auto) 2.1, Baso % (Auto) 0.3, Neut # (Auto) 4.5, Lymph # (Auto) 1.3, [place] # (Auto) 0.3, Eos # (Auto) 0.1, Baso # (Auto) 0.0 01/16/20 06:30: Sodium 137, Potassium 4.2, Chloride 108 H, Carbon Dioxide 22, Anion Gap 11.2, BUN 9, Creatinine 0.70, Estimated Creat Clear 104, Estimated GFR 90, Est GFR ( Amer) 109, Glucose 331 H D, Calcium 9.6 I & O for Last 24 hours: Intake & Output 01/13/20 01/14/20 01/15/20 01/16/20 23:59 23:59 23:59 23:59 Intake Total 1929 2229 / 2229 815 / 815 Output Total 2199 / 0 1700 / 1700 Balance 1929 29 / -491 -885 / -885 Weight 64.41 kg 67 kg 66.338 kg - Constitutional mild distress Comments: Fatigued but cooperative - *Routine HEENT Exam Head: Present: normocephalic Eye: Present: EOMI, PERRL ENT: Present: mucous membranes moist - *Routine Neck Exam Present: supple. Absent: lymphadenopathy - *Routine Respiratory Exam Present: CTA bilaterally - *Routine Cardiovascular Exam Present: RRR - *Routine Abdominal Exam Present: soft, normoactive bowel sounds, tenderness Comments: Diffuse tenderness, clean dry and intact surgical incision midline distal to umbilicus - *Routine Extremities Exam Absent: cyanosis, clubbing, edema - *Routine Skin Exam Present: warm. Absent: rash - *Routine Neurological Exam Present: alert Assessment and Plan (1) Factor V Leiden mutation Current visit: Yes Status: Acute Category: Medical Code(s): D68.51 - Activated protein C resistance (2) History of stroke Current visit: Yes Status: Acute Category: Medical Code(s): Z86.73 - Personal history of transient ischemic attack (TIA), and cerebral infarction without residual deficits (3) Vaginal bleeding Current visit: Yes Status: Acute Category: Medical Code(s): N93.9 - Abnormal uterine and vaginal bleeding, unspecified (4) Uterine fibroid Current visit: Yes Status: Acute Qualifiers: Uterine leiomyoma location: unspecified location Qualified Code(s): D25.9 - Leiomyoma of uterus, unspecified Category: Medical Code(s): D25.9 - Leiomyoma of uterus, unspecified (5) Blood loss anemia Current visit: Yes Status: Acute Category: Medical Code(s): D50.0 - Iron deficiency anemia secondary to blood loss (chronic) (6) Insulin dependent diabetes mellitus Current visit: Yes Status: Chronic Category: Medical - Assessment and plan all Dx Assessment and Plan for all problems:: 49-year-old female status post hysterectomy. Transfused 2 units and responded well. We will repeat labs in the morning to monitor for stability. Will hold on anticoagulation at this time. Continue to be hyperglycemic, resume Levemir at decreased dose this evening. Reevaluate in the morning for further adjustment. Increase sliding scale to high-dose insulin. Pain regimen with oral and PRN IV meds. Cont
[2020-01-16 08:00] LABS: POC Glucose,Bedside 348 (70-110)
--- NOTE | 2020-01-16 08:31 | P.PN_ITS ---
[facility] Anesthesia Checklist - Structural Data Admitted From: Inpatient Planned Operative Procedure/s: [facility] Consent for Planned Operative Procedure(s) Verified: Yes - Airway Assessment C-Spine Mobility Assessed: Yes TMJ Mobility Assessed: Yes Dentition: Poor Dentition - Neurological Assessment Level of Consciousness: Awake, Alert, Appropriate - Anesthesia Plan Anesthesia Risk discussed: Yes Anesthesia Plan: Verified ASA Class: III Anesthesia Type: General [facility] History I have reviewed the patient's past medical history: Yes Medical History: Reports:: Cerebrovascular Accident, Diabetes Mellitus Type 2, Hyperlipidemia, Hypertension, Migraine Denies:: Cancer, Diabetes Mellitus Type 1, MRSA *Have you ever received a pneumonia vaccine?: No *Have you received a flu vaccine this season?: No Other Medical History: Reports: Anemia Anesthesia experience/problems:: none Other Surgeries: Yes: Tubal Ligation, Other (Back surgery in the remote past) Amputation: No Fractures: No - *Social History Last grade of school completed: Some college Smoking Status: Never smoker Alcohol Intake: never Substance Use Type: denies use *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
[2020-01-16 08:47] LABS: Hematocrit 29.6 % (37.0-47.0)
[2020-01-16 08:54] LABS: Hemoglobin 9.5 g/dL (12.2-16.2)
[2020-01-16 08:55] LABS: Glucose,Random 280 mg/dL (74-100)
--- NOTE | 2020-01-16 09:11 | XR_ITS ---
PROCEDURE: XR ABDOMEN MIN 2V CLINICAL INDICATION: needle count off Correct instrument count COMPARISON: No exams were available for comparison FINDINGS: Lumbar scoliosis convex right. Skin clips present along the lower abdomen. No other radiopaque or metallic foreign bodies apparent. There is a Reina catheter present. The exam does not include the entire left side of the abdomen. IMPRESSION: Focal clips and Reina catheter present. No other radiopaque foreign bodies apparent Dictated by: Emre Pinon MD 01/16/2020 11:43 Emre Pinon MD in OV 01/16/2020 11:43
--- NOTE | 2020-01-16 09:13 | HMH.OPNOTE ---
Date of procedure: 01/16/20 Pre-op Diagnosis:: Menorrhagia, anemia, fibroid uterus Post-op Diagnosis:: Menorrhagia, anemia, fibroid uterus Procedure performed:: Total abdominal hysterectomy, bilateral salpingectomy Surgeon:: Delvis Perez MD Glass Block Bender(s):: Madyson Luu RESIDENTIAL INSTALLER:: Rakesh Schulte Anesthesia: GETA Estimated blood loss (mL): 800 Clinical Note:: She is a 49-year-old lady who was admitted about 3 months ago to hospital with severe menorrhagia. At that time she said she had a fibroid and she received blood products. She says that her hemoglobin was 5 when she was admitted. At that time they elected not to perform any surgery and her bleeding has settled. She was placed on Megace. She subsequently was admitted 2 days ago with extremely heavy periods. Her hemoglobin had dropped to 7 and she received 2 units of blood. Subsequently she has continued to bleed. She has been on Eliquis. As result of that we elected perform a total abdominal hysterectomy and bilateral salpingectomy. The risks and benefits of surgery were discussed with the patient and her boyfriend prior to surgery. Operative findings:: She had a grossly enlarged uterus. It was about 18 weeks in size. It was about 2 cm below the umbilicus. The ovaries and tubes appeared normal. The rest the pelvis appeared normal. Operative note:: She was taken the operating room where general anesthesia was found to be adequate. She was prepped and draped normal sterile fashion in the supine position. A Reina catheter is in the bladder. Midline incision was made from just above the pubic hairline to just below the umbilicus. This was carried through to the underlying layer of fascia with cautery. The fascia was then divided with cautery. We then grasped the peritoneum and using Metzenbaum scissors opened into the peritoneum. This incision was then extended superiorly and inferiorly with cautery with good visualization of the underlying structures and the bladder. An Pietro'Paramjit-Pietro'Hermes retractor was then placed within the abdominal cavity. It should be noted that she was extremely oozy throughout the case. She had taken Eliquis 48 hours prior and had also been taking Lovenox 40 mg subcu daily. The bowel was packed away with warm moist packs. The right side of the uterine cornea was then grasped with a large Demetra clamp. I then grasped the left round ligament and doubly suture ligated this. The intervening section of round ligament was then cut and the peritoneum anteriorly was taken down to the midline. I then fenestrated the posterior aspect of the broad ligament with my finger. I clamped across this with a Dante clamp and then using an endo-seal I cut across this pedicle. The pedicle was then suture ligated. We then clamped across the uterine arteries using curved Dante clamp. This was then endo-sealed and cut and suture-ligated. I took one more bite with a straight Dante once again this was and is sealed against this uterus and suture-ligated. We then turned to the patient's right side were once again we grasped the round ligament and doubly suture ligated this. The round ligament was then cut and the anterior peritoneum was opened to the midline. I then fenestrated the posterior aspect of the broad ligament isolating the utero-ovarian ligament. This was then clamped and a endo-seal was then cauterized across the cornual side of the utero-ovarian ligament. The ovarian ligament was then suture ligated. I then placed a curved Dante clamp across the uterine artery on the right side this was then endo-sealed and suture-ligated. A second straight Dante was then placed below this once again it was endo-seal against the uterus and suture-ligated. At this point in time since the uterus is so large I elected to amputate the uterus from the cervix. Using heavy Vargas scissors I was able to completely remove the uterus. This was then sent off to pathology. The ce
--- NOTE | 2020-01-16 09:28 | P.PN_ITS ---
[facility] Anesthesia Record Part I Intake, IV Amount: 2,000 Estimated blood loss (mL): 800 Urine output (mL): 250 Blood Products used (#): PRBC's (2 units) Blood Pressure: 135/69 SaO2: 93 Pulse Rate: 79 Respiratory Rate: 12 Temperature: 98.2 F Patient is:: Awake, Stable Stable to PACU at:: 09:25
[2020-01-16 09:47] LABS: Hematocrit 29.2 % (37.0-47.0); Hemoglobin 9.5 g/dL (12.2-16.2)
--- NOTE | 2020-01-16 10:55 | SUR.OPER ---
1st unit PRBCs: start 0745 stop 0800 2nd unit PRBCs: start 0801 stop 0815 0818: 6 laps/1 blue towel in 0848: 6 laps/1 blue towel out H/H and glucose drawn by lab, Sendy Ledesma from lab called at 0900 with these results, given to NIEVES Vergara and conveyed to Dr Perez and KAREN Gunderson: H/H-9.5 and 29.6, glucose 280. 0905: nurse count 29 suture-tech count 28 suture, multiple more counts by nurse tech, and KCSA. Abdominal/pelvic xray ordered. No suture found in patient's surgical site according to xrays viewed by MD and CRM ANALYST as well as service technician copier.
[2020-01-16 11:10] LABS: Hematocrit 29.8 % (37.0-47.0); Hemoglobin 9.4 g/dL (12.2-16.2)
[2020-01-16 11:54] LABS: POC Glucose,Bedside 327 (70-110)
[2020-01-16 13:36] LABS: Microscopic,Cath URINE MICROSCOPIC (MICROSCOPIC)
[2020-01-16 13:53] LABS: Appearance,Urine/Cath CLEAR (Clear); Bilirubin,Cath Negative (Negative); Blood, Urine/Cath Negative (Negative); Color,Urine/Cath YELLOW (Yellow); Glucose,Urine/Cath (UA) Negative (Negative); Ketones,Urine/Cath Negative (Negative); Leukocyte Esterase,Cath Negative (Negative); Nitrate,Cath Negative (Negative); PH,Urine/Cath 5.5 (5.0-8.5); Protein,Urine/Cath Negative (Negative); Urobilinogen,Cath 0.2 EU/dl (0.2)
[2020-01-16 14:18] LABS: RBC,Urine/Cath Occasional # /hpf (0-3); Squamous Epithelial Ur./Cath Occasional #/hpf (0-5)
[2020-01-16 16:24] LABS: Hemoglobin 9.6 g/dL (12.2-16.2)
[2020-01-16 16:33] LABS: POC Glucose,Bedside 248 (70-110)
--- NOTE | 2020-01-16 18:06 | PC.NURSE ---
PATIENT A&OX4, LUNGS CLEAR, PULSES EQUAL. PATIENT HAS HAD SIGNIFICANT PAIN SINCE BACK ON THE FLOOR. THIS RN HAS ADMINISTERED APPROPRIATE MEDICATIONS. THIS RN SPOKE WITH DR. RUBIO IN REGARDS TO LEYVA REMOVAL AND PAIN LEVEL. PER MD, DO NOT TAKE OUT LEYVA UNTIL 01/16 IN AM AND 1MG DILAUDID IV Q3HRS PRN. MD AT PATIENT BEDSIDE 2X DURING THIS RN SHIFT. NO OTHER NEEDS OR CONCERNS AT THIS TIME.
[2020-01-16 20:28] LABS: POC Glucose,Bedside 170 (70-110)
--- NOTE | 2020-01-17 03:04 | PC.NURSE ---
Pt sleeping intermittently this shift. Continues to c/o severe pain in abdomen. Dressing intact with no new drainage noted. UOP adequate via moncada catheter. Pain medications administered upon request as ordered. Pt reluctant to move for fear of increasing pain. RN explained that movement would help with pain in the long run and would help shorten healing time. No new vaginal bleeding noted. Pt refused bath this shift, stating pain was too severe at this time. Lung sounds clear. Pt does have delayed speech with some trouble finding words, but states this is a result of previous CVA.
[2020-01-17 04:00] VITALS: BP 135/72; PULSE 110; RESP 19; TEMP 37.2; O2SAT 90
[2020-01-17 05:00] VITALS: BMI 28.3
[2020-01-17 05:37] LABS: POC Glucose,Bedside 238 (70-110)
[2020-01-17 06:45] LABS: Basophils % 0.3 % (0.1-2.0); Eosinophils # 0.1 K/mm3 (0.0-0.4); Eosinophils % 1.2 % (0.1-12.0); Hematocrit 28.9 % (37.0-47.0); Hemoglobin 9.3 g/dL (12.2-16.2); Lymphocytes # 1.1 K/mm3 (0.7-4.5); Lymphocytes % 10.2 % (10-50); Mean Corpuscular HGB Conc 32.1 g/dL (31.8-35.4); Mean Corpuscular Hemoglobin 27.5 pg (27.0-31.2); Mean Corpuscular Volume 85.6 fl (81-99); Mean Platelet Volume 7.3 fl (7.4-10.4); Monocytes # 0.5 K/mm3 (0.1-1.0); Monocytes % 4.9 % (1.7-9.3); Neutrophils # 8.7 K/mm3 (1.8-7.8); Neutrophils % 83.3 % (37.0-80.0); Platelet Count 164 K/mm3 (142-424); Red Blood Count 3.37 M/mm3 (4.20-5.40); Red Cell Distribution Width 18.2 % (11.5-17.5); White Blood Count 10.4 K/mm3 (4.8-10.8)
[2020-01-17 06:56] LABS: Chloride 104 mmol/L (98-107); Sodium 134 mmol/L (136-145)
[2020-01-17 06:59] LABS: Blood Urea Nitrogen 6 mg/dl (7-17); Creatinine Clearance Estimated 93 mL/min (50-200); Estimated Glomerular Filt Rate 77 ml/min (>60); GFR (African American) 93 ML/MIN (>60)
[2020-01-17 07:00] LABS: Calcium 9.2 mg/dl (8.4-10.2); Carbon Dioxide 24 mmol/L (22.0-30.0); Glucose 236 mg/dl (74-100)
[2020-01-17 08:00] VITALS: BP 148/97; PULSE 109; RESP 16; TEMP 37.6; O2SAT 92
--- NOTE | 2020-01-17 08:00 | PC.NURSE ---
at to see pt. V/O received for I/S and KPAD. R/V.
--- NOTE | 2020-01-17 08:38 | HMH.ACPN2 ---
Internal Medicine - PN: Subj *Date: 01/17/20 *Time: 08:38 Interval history: Internal medicine follow-up consult note: Surgical note reviewed from yesterday. Patient's main complaint today is pain. Exam Vital signs and Labs for Last 24 Hours: Temp Pulse Resp BP Pulse Ox 99.6 F 109 H 16 148/97 H 92 L 01/17/20 08:00 01/17/20 08:00 01/17/20 08:00 01/17/20 08:00 01/17/20 08:00 Laboratory Results - last 24 hr 01/14/20 12:22: Blood Type A Positive, Antibody Screen Negative, Crossmatch (AHG) See Detail 01/16/20 07:41: Urine Color Yellow, Urine Appearance Clear, Urine pH 5.5, Ur Specific [place] 1.020, Urine Protein Negative, Urine Glucose (UA) Negative, Urine Ketones Negative, Urine Blood Negative, Urine Nitrate Negative, Urine Bilirubin Negative, Urine Urobilinogen 0.2, Ur Leukocyte Esterase Negative, Urine RBC Occasional, Urine WBC 3-5, Ur Squamous Epith Cells Occasional 01/16/20 08:41: Hgb 9.5 L D, Hct 29.6 L 01/16/20 08:41: Random Glucose 280 H 01/16/20 09:43: Hgb 9.5 L, Hct 29.2 L 01/16/20 10:55: Hgb 9.4 L, Hct 29.8 L 01/16/20 11:20: POC Glucose 327 H* 01/16/20 16:03: Hgb 9.6 L, Hct 29.0 L 01/16/20 16:14: POC Glucose 248 H 01/16/20 20:19: POC Glucose 170 H 01/17/20 05:30: POC Glucose 238 H 01/17/20 06:10: WBC 10.4 D, RBC 3.37 L, Hgb 9.3 L, Hct 28.9 L, MCV 85.6, MCH 27.5, MCHC 32.1, RDW 18.2 H, Plt Count 164, MPV 7.3 L, Neut % (Auto) 83.3 H, Lymph % (Auto) 10.2, [place] % (Auto) 4.9, Eos % (Auto) 1.2, Baso % (Auto) 0.3, Neut # (Auto) 8.7 H, Lymph # (Auto) 1.1, [place] # (Auto) 0.5, Eos # (Auto) 0.1, Baso # (Auto) 0.0 01/17/20 06:10: Sodium 134 L, Potassium 4.0, Chloride 104, Carbon Dioxide 24, Anion Gap 10.0, BUN 6 L D, Creatinine 0.80, Estimated Creat Clear 93, Estimated GFR 77, Est GFR ( Amer) 93, Glucose 236 H D, Calcium 9.2 I & O for Last 24 hours: Intake & Output 01/14/20 01/15/20 01/16/20 01/17/20 11:59 11:59 11:59 11:59 Intake Total 3410 / 3410 4064 / 4064 1820 / 1820 Output Total 400 / 400 3750 / 3750 1090 / 1090 Balance 3010 / 3010 314 / 314 730 / 730 Weight 140 lb 147 lb 1.6 oz 146 lb 4 oz 150 lb 1.995 oz Narrative: Alert, pleasant. Oriented. Lungs have good air movement. Minimal ventilatory effort because of pain. Abdomen tender, surgical scar looks good. Heart rate regular. Neurologically intact. Assessment and Plan (1) Factor V Leiden mutation Current visit: Yes Status: Acute Category: Medical Code(s): D68.51 - Activated protein C resistance (2) History of stroke Current visit: Yes Status: Acute Category: Medical Code(s): Z86.73 - Personal history of transient ischemic attack (TIA), and cerebral infarction without residual deficits (3) Vaginal bleeding Current visit: Yes Status: Acute Category: Medical Code(s): N93.9 - Abnormal uterine and vaginal bleeding, unspecified (4) Uterine fibroid Current visit: Yes Status: Acute Qualifiers: Uterine leiomyoma location: unspecified location Qualified Code(s): D25.9 - Leiomyoma of uterus, unspecified Category: Medical Code(s): D25.9 - Leiomyoma of uterus, unspecified (5) Blood loss anemia Current visit: Yes Status: Acute Category: Medical Code(s): D50.0 - Iron deficiency anemia secondary to blood loss (chronic) (6) Insulin dependent diabetes mellitus Current visit: Yes Status: Chronic Category: Medical - Assessment and plan all Dx Assessment and Plan for all problems:: Encourage deep breathing. Otherwise continue to monitor.
--- NOTE | 2020-01-17 09:48 | HMH.ACPN2 ---
Internal Medicine - PN: Subj *Date: 01/17/20 *Time: 09:48 Interval history: She is doing well this morning. She denies any chest pain or shortness of breath. She still has some abdominal pain. She is receiving Dilaudid every 3 hours. She has been passing a small amount of gas. She is putting out good urine. Her blood counts are stable. Exam Vital signs and Labs for Last 24 Hours: Temp Pulse Resp BP Pulse Ox 99.6 F 109 H 16 148/97 H 92 L 01/17/20 08:00 01/17/20 08:00 01/17/20 08:00 01/17/20 08:00 01/17/20 08:00 Laboratory Results - last 24 hr 01/16/20 07:41: Urine Color Yellow, Urine Appearance Clear, Urine pH 5.5, Ur Specific [place] 1.020, Urine Protein Negative, Urine Glucose (UA) Negative, Urine Ketones Negative, Urine Blood Negative, Urine Nitrate Negative, Urine Bilirubin Negative, Urine Urobilinogen 0.2, Ur Leukocyte Esterase Negative, Urine RBC Occasional, Urine WBC 3-5, Ur Squamous Epith Cells Occasional 01/16/20 09:43: Hgb 9.5 L, Hct 29.2 L 01/16/20 10:55: Hgb 9.4 L, Hct 29.8 L 01/16/20 11:20: POC Glucose 327 H* 01/16/20 16:03: Hgb 9.6 L, Hct 29.0 L 01/16/20 16:14: POC Glucose 248 H 01/16/20 20:19: POC Glucose 170 H 01/17/20 05:30: POC Glucose 238 H 01/17/20 06:10: WBC 10.4 D, RBC 3.37 L, Hgb 9.3 L, Hct 28.9 L, MCV 85.6, MCH 27.5, MCHC 32.1, RDW 18.2 H, Plt Count 164, MPV 7.3 L, Neut % (Auto) 83.3 H, Lymph % (Auto) 10.2, [place] % (Auto) 4.9, Eos % (Auto) 1.2, Baso % (Auto) 0.3, Neut # (Auto) 8.7 H, Lymph # (Auto) 1.1, [place] # (Auto) 0.5, Eos # (Auto) 0.1, Baso # (Auto) 0.0 01/17/20 06:10: Sodium 134 L, Potassium 4.0, Chloride 104, Carbon Dioxide 24, Anion Gap 10.0, BUN 6 L D, Creatinine 0.80, Estimated Creat Clear 93, Estimated GFR 77, Est GFR ( Amer) 93, Glucose 236 H D, Calcium 9.2 I & O for Last 24 hours: Intake & Output 01/14/20 01/15/20 01/16/20 01/17/20 11:59 11:59 11:59 11:59 Intake Total 3410 / 3410 4064 / 4064 1820 / 1820 Output Total 400 / 400 3750 / 3750 1090 / 1090 Balance 3010 / 3010 314 / 314 730 / 730 Weight 140 lb 147 lb 1.6 oz 146 lb 4 oz 150 lb 1.995 oz - Constitutional no acute distress - *Routine HEENT Exam Head: Present: normocephalic Eye: Present: EOMI, PERRL ENT: Present: mucous membranes moist - *Routine Neck Exam Present: supple. Absent: lymphadenopathy - *Routine Respiratory Exam Present: CTA bilaterally - *Routine Cardiovascular Exam Present: RRR - *Routine Abdominal Exam Present: soft, normoactive bowel sounds. Absent: tenderness Comments: Her incision is clean and dry. - *Routine Extremities Exam Absent: cyanosis, clubbing, edema Comments: Her calves are nontender. Assessment and Plan (1) Factor V Leiden mutation Current visit: Yes Status: Acute Category: Medical Code(s): D68.51 - Activated protein C resistance (2) History of stroke Current visit: Yes Status: Acute Category: Medical Code(s): Z86.73 - Personal history of transient ischemic attack (TIA), and cerebral infarction without residual deficits (3) Vaginal bleeding Current visit: Yes Status: Acute Category: Medical Code(s): N93.9 - Abnormal uterine and vaginal bleeding, unspecified (4) Uterine fibroid Current visit: Yes Status: Acute Qualifiers: Uterine leiomyoma location: unspecified location Qualified Code(s): D25.9 - Leiomyoma of uterus, unspecified Category: Medical Code(s): D25.9 - Leiomyoma of uterus, unspecified (5) Blood loss anemia Current visit: Yes Status: Acute Category: Medical Code(s): D50.0 - Iron deficiency anemia secondary to blood loss (chronic) (6) Insulin dependent diabetes mellitus Current visit: Yes Status: Chronic Category: Medical - Assessment and plan all Dx Assessment and Plan for all problems:: She is doing a little better today. We will plan to discontinue her Reina catheter. We will keep her on the sliding scale. We will go ahead and start a liquid diet. We will plan t
[2020-01-17 11:39] VITALS: BP 133/77; PULSE 107; RESP 18; TEMP 37.3; O2SAT 91
[2020-01-17 12:13] LABS: POC Glucose,Bedside 239 (70-110)
[2020-01-17 12:47] VITALS: BP 159/77; PULSE 74; TEMP 36.7
--- NOTE | 2020-01-17 12:47 | HMH.ANESII ---
[facility] Anesthesia Record Part II Discharge Time: 09:55 Destination: floor PACU nurse assessment reviewed?: Yes Patient Condition:: Good Anesthesia Complications:: None Swallowing reflex intact?: Yes Cyanosis?: No Blood Pressure: 159/77 Pulse Rate: 74 Temperature: 98.0 F Mental Status: Alert & Oriented Pain level:: 7 Nausea and/or vomitting:: None Intake, IV Amount: 2,500
[2020-01-17 16:00] VITALS: BP 137/81; PULSE 109; RESP 18; TEMP 37.4; O2SAT 91
--- NOTE | 2020-01-17 17:42 | PC.NURSE ---
at to see pt.
--- NOTE | 2020-01-17 18:00 | PC.NURSE ---
Reina catheter discontinued per 's V/O. BSC provided for pt to use when needed. Instructed pt to not get up without ringing for assistance.
--- NOTE | 2020-01-17 18:11 | PC.NURSE ---
IV fluids unhooked at this time. Pt's arm slightly edematous around IV sight. No obvious infiltration, redness or hardness noted. Flushes easily. Arm elevated on a pillow to see if edema decreases.
--- NOTE | 2020-01-17 19:09 | PC.NURSE ---
report given to martin
[2020-01-17 19:33] VITALS: BP 115/67; PULSE 88; RESP 20; TEMP 37; O2SAT 90
[2020-01-17 20:34] LABS: POC Glucose,Bedside 458 (70-110)
[2020-01-18] VITALS (8 sets, daily range): BP systolic 106–143; BP diastolic 53–77; PULSE 102–115; RESP 16–20; TEMP 36.7–37.2; O2SAT 94–97; BMI 28.1
--- NOTE | 2020-01-18 00:15 | PC.NURSE ---
Pt has refused IVF this shift, states she feels she is drinking well and does not want IVF at this time.
--- NOTE | 2020-01-18 03:08 | PC.NURSE ---
Pt has slept intermittently this shift. Pt, thus far, has required no prn pain medications. Pt states scheduled ketorolac, along with use of heating pad to abdomen, has been effective for pain relief. Pt has ambulated independently to bathroom and tolerated this activitiy well. Pt using incentive spirometer as requested with good effort. Pt has increased oral fluid intake, stating she does not want IV fluids. Dressing intact with no new drainage noted. Left AC IV infiltrated, new IV started in right wrist. Pt states she has gas pressure/pain, but is not yet passing gas. Pt encouraged to ambulate in room and sit up in chair in order to help with bowel motility. Pt states she will sit in chair in am.
[2020-01-18 12:00] LABS: POC Glucose,Bedside 288 (70-110)
--- NOTE | 2020-01-18 13:04 | HMH.ACPN2 ---
Internal Medicine - PN: Subj *Date: 01/18/20 *Time: 13:04 Interval history: POD #2 WILBER, bilateral salpingectomy No unusual complaints Ambulating and voiding without difficulty Tolerating po Exam Vital signs and Labs for Last 24 Hours: Temp Pulse Resp BP Pulse Ox 98.1 F 102 H 17 131/77 96 01/18/20 12:00 01/18/20 12:00 01/18/20 12:00 01/18/20 12:00 01/18/20 12:00 Laboratory Results - last 24 hr 01/17/20 20:22: POC Glucose 458 H* 01/18/20 11:41: POC Glucose 288 H I & O for Last 24 hours: Intake & Output 01/16/20 01/17/20 01/18/20 01/19/20 11:59 11:59 11:59 11:59 Intake Total 4064 / 4064 1820 / 1820 3940 / 4300 720 / 720 Output Total 3750 / 3750 1090 / 1090 100 / 100 Balance 314 / 314 730 / 730 3840 / 4200 720 / 720 Weight 146 lb 4 oz 150 lb 1.995 oz Narrative: CONSTITUTIONAL: no acute distress HEENT: poor dentition PULMONARY: breathing unlabored without audible wheezes CV: no tachycardia or visible JVD; normal LE peripheral pulses ABD: soft, ND; appropriately tender but no rebound/guarding SKIN: dressing intact with no drainage EXT: no edema LEs NEURO: alert/oriented, no altered mental status PSYCH: appropriate mood and demeanor without anxiety/depression Assessment and Plan (1) Factor V Leiden mutation Status: Acute Category: Medical Code(s): D68.51 - Activated protein C resistance (2) History of stroke Status: Acute Category: Medical Code(s): Z86.73 - Personal history of transient ischemic attack (TIA), and cerebral infarction without residual deficits (3) Vaginal bleeding Status: Acute Category: Medical Code(s): N93.9 - Abnormal uterine and vaginal bleeding, unspecified (4) Uterine fibroid Status: Acute Qualifiers: Uterine leiomyoma location: unspecified location Qualified Code(s): D25.9 - Leiomyoma of uterus, unspecified Category: Medical Code(s): D25.9 - Leiomyoma of uterus, unspecified (5) Blood loss anemia Status: Acute Category: Medical Code(s): D50.0 - Iron deficiency anemia secondary to blood loss (chronic) (6) Insulin dependent diabetes mellitus Status: Chronic Category: Medical (7) S/P hysterectomy Status: Acute Category: Surgical Code(s): Z90.710 - Acquired absence of both cervix and uterus - Assessment and plan all Dx Assessment and Plan for all problems:: Continue to advance postop care as tolerated advance to regular diet increase ambulation in halls; IS use when supine for prolonged periods of time FeSO4 Anticipate discharge home tomorrow
[2020-01-18 16:47] LABS: POC Glucose,Bedside 255 (70-110)
--- NOTE | 2020-01-18 17:13 | PC.NURSE ---
PATIENT A&O X4, LUNGS CLEAR, PULSES EQUAL. THIS RN ENCOURAGED PATIENT TO SHOWER, ALL ESSENTIALS WERE PROVIDED AND PATIENT SELF SHOWERED. THIS RN REMOVED OLD DRESSING, CLEANSED WITH HIBICLENS, PER DR. RUBIO'S ORDERS. INCISION SITE CLEAN, DRY AND INTACT. THIS RN APPLIED NEW GAUZE AND SEALED WITH TAPE. THIS RN ENCOURAGE PATIENT TO AMBULATE IN HALLWAY. PATIENT AMBULATED 1X ONLY IN AM AND REFUSED FOR REMAINDER OF SHIFT. NO OTHER CONCERNS AT THIS TIME.
--- NOTE | 2020-01-18 20:40 | PC.NURSE ---
Routine assessment completed. Pt. A&O X4. Heart rate at 107, all other VSS. Lungs CTA, BS present x4 quad. Midline dressing noted to be C/D/I. Pt. Reports pain to be in across upper abdomen from gas. Pt. rates pain, at 6/10. Pain medication available at 21:40. Pt. v/u. Nurse encouraged pt. to continue ambulating. FSBS at 267, see EMAR for insulin administration. Pt. denies further needs, will continue to monitor.
[2020-01-18 20:51] LABS: POC Glucose,Bedside 267 (70-110)
--- NOTE | 2020-01-18 23:55 | PC.NURSE ---
PT ARRIVED TO FLOOR VIA/WC W/STAFF FROM ED AT [id number].
[2020-01-19 04:00] VITALS: BP 107/52; PULSE 94; RESP 20; TEMP 37; O2SAT 96
--- NOTE | 2020-01-19 04:40 | PC.NURSE ---
Reassessment completed. No acute changes. VSS. Lungs CTA, Heart at RRR. BS present x4 quad. Midline dressing noted to be C/D/I. Pt. reports passing flatus through night. Pt. rates pain in ABD at 4/10, reports she is comfortable and doesn't want pain medication at this time. Pt. denies needs will continue to monitor.
[2020-01-19 05:00] VITALS: BMI 27.6
[2020-01-19 06:36] LABS: POC Glucose,Bedside 193 (70-110)
--- NOTE | 2020-01-19 07:22 | PC.NURSE ---
Report given to Valdez Brandt RN.
[2020-01-19 08:00] VITALS: BP 111/64; PULSE 99; RESP 18; TEMP 36.7; O2SAT 97
--- NOTE | 2020-01-19 09:01 | HMH.DCSUM ---
General - General Admission date:: 01/14/20 Discharge date: 01/19/20 HPI HPI: She is a 49-year-old 3 para 2 aborta 1 who complains of heavy vaginal bleeding for 1 week with pelvic cramping. Using 1 pad every 2-3 hours. No syncope. She says she had the same thing about 3 months ago and was admitted for 3 days to [facility] [place] in [place] and received a transfusion. She says that she was told she has a fibroid. She was started on megestrol acetate. She says that she missed 3 days of that medication because she could not get to the pharmacy to cook pickled meat the prescription and after she restarted the medication the bleeding started. She says she was supposed to see a track leader for follow-up after her admission but never did because she was busy with work and family matters. She is on Eliquis because of previous CVA that happened in September of this year. She is known to have factor V Leiden. Ultrasound today shows that she has at least 6 fibroids within the umbilicus. Her hemoglobin is just over 9. She looks pale. She moved here about a month and a half ago. She does not yet have a physician or track leader in this area. Her primary care doctor is in [place] also. She is a diabetic and does not have a la. She says she takes 53 units a day of insulin and today her blood sugar is over 400. Hospital Course Hospital Course: Admitted with menorrhagia and anemia transfusion of packed red cells and taken for hysterectomy grossly enlarged uterus with fibroids postop course uneventful with normal progress Ambulating and voiding without difficulty tolerating po asymptomatic with anemia Objective Vital signs: Temp Pulse Resp BP Pulse Ox 98.1 F 99 H 18 111/64 97 01/19/20 08:00 01/19/20 08:00 01/19/20 08:00 01/19/20 08:00 01/19/20 08:00 Narrative: CONSTITUTIONAL: no acute distress HEENT: poor dentition PULMONARY: breathing unlabored without audible wheezes CV: no tachycardia or visible JVD; normal LE peripheral pulses ABD: soft, ND; appropriately tender but no rebound/guarding SKIN: dressing dry/intact EXT: no edema LEs NEURO: alert/oriented, no altered mental status PSYCH: appropriate mood and demeanor without anxiety/depression Results Labs on day of discharge: Labs from last 24 hours 01/19/20 01/18/20 01/18/20 06:29 20:42 16:40 POC Glucose 193 H 267 H 255 H 01/18/20 11:41 POC Glucose 288 H DS: Diagnosis - Discharge Diagnosis (1) Factor V Leiden mutation Status: Acute (2) History of stroke Status: Acute (3) Vaginal bleeding Status: Acute (4) Uterine fibroid Status: Acute (5) Blood loss anemia Status: Acute (6) Insulin dependent diabetes mellitus Status: Chronic (7) S/P hysterectomy Status: Acute Discharge Plan - Patient Discharge Instructions ACTIVITY: Continue current activity DIET: regular diet Patient Instructions: How to Care for a Surgical Wound, Anemia, DI for Hysterectomy, DI for Uterine Fibroids, DI for Surgical Site Infection, DI for Vaginal Bleeding - Follow up Plan Follow up with: Delvis Perez MD [Staff Physician] - Disposition: Home, Self-Custodial Medications: Home Medications Medication Instructions Recorded Confirmed Type Apixaban [Eliquis] 5 mg PO BID 01/14/20 01/14/20 History Ascorbic Acid [Vitamin C 500mg 500 mg PO DAILY 01/14/20 01/14/20 History tablet] Atorvastatin Calcium [Lipitor 80mg 80 mg PO HS 01/14/20 01/14/20 History Tablet*] Butalb/Acetaminophen/Caffeine 1 each PO BIDP PRN 01/14/20 01/15/20 History [Fioricet 50-300-40 mg Capsule] Ferrous Sulfate [Slow Fe] 142 mg PO DAILY 01/14/20 01/14/20 History Insulin Detemir [Levemir 55 unit SQ DAILY 01/14/20 01/15/20 History 100units/mL 3mL flexpen] Metoprolol Succinate [Metoprolol 12.5 mg PO BID 01/14/20 01/14/20 History Succinate 25mg Tablet*] Pantoprazole Sodium [Protonix 40mg 40 mg PO DA
[2020-01-19 10:45] LABS: POC Glucose,Bedside 261 (70-110)
--- NOTE | 2020-01-19 11:34 | HMH.PHAINT ---
DISCHARGE COUNSELING COMPLETED ON PATIENT. NEW PRESCRIPTION FOR OXYCODONE. THIS WAS SENT TO CLINIC PHARMACY. PATIENT IS TO CONTINUE ALL OTHER HOME MEDICATIONS WITH THE EXCEPTION OF ELIQUIS AND MEGACE WHICH WILL BE HELD. PATIENT VERBALIZED UNDERSTANDING AND HAD NO QUESTIONS AT THIS TIME. -ISIDRA JENSEN, JOVANID
[2020-01-19 11:47] LABS: POC Glucose,Bedside 201 (70-110)
--- NOTE | 2020-01-19 14:48 | PC.NURSE ---
INSTRUCTED BY DR. HIGUERA TO LEAVE INCISION OPEN TO AIR
== END 2020-01-19 14:50 | disposition home or self-care (01) | DRG 742 ==
LOC: ER 10:53 → 2ND 12:48
PROVIDERS: Family Medicine; Internal Medicine Adolescent Medicine; Admitting Provider Nurse Practitioner Obstetrics & Gynecology; Emergency Provider Emergency Medicine; PCP Internal Medicine; Visit Provider Obstetrics & Gynecology
PROC: 0UT90ZZ Resection of Uterus, Open Approach (ICD-10-PCS; CPT 58150; principal; 2020-01-16 07:30)
DX: D25.9 Leiomyoma of uterus, unspecified (principal); D68.51 Activated protein C resistance; D50.0 Iron deficiency anemia secondary to blood loss (chronic); E11.9 Type 2 diabetes mellitus without complications; Z79.4 Long term (current) use of insulin; Z79.01 Long term (current) use of anticoagulants; N92.0 Excessive and frequent menstruation with regular cycle
CPT/HCPCS: 58150; 36415; 74019; 76856; 80048; 80053; 81001; 82947; 82962; 84703; 85014; 85018; 85025; 86328; 86850; 96365; 96375; 99284; J2405; J2710; P9016

== ENCOUNTER 2020-04-13 11:36 | Emergency (ER) | payer BC, SELFPAY ==
[2020-04-13 11:52] VITALS: BP 123/70; PULSE 73; RESP 19; TEMP 36.6; O2SAT 98; BMI 28.3
--- NOTE | 2020-04-13 11:58 | HMH.EDUTC ---
[facility] [place] Impression: Exposure to COVID-19 virus Disposition: Home, Self-Care Condition on Discharge: Good Instructions: DI for COVID-19 (Suspected or Confirmed ), COVID-19 Viral Test, COVID-19: Testing and Tracing, Preventing the Spread of Coronavirus Discharge Instructions Additional Instructions: *Monitor Temp, Over the counter Motrin or Tylenol as directed/as needed Tylenol every 4 hours and Motrin every 6 hours (as long as your family doctor has told you that you can take it) for fever or pain. and straight to ER if unable to lower temp less than 101.0 after medication given Follow up IMMEDIATELY for new or worsening symptoms or no Noticeable improvement over the next 48-72 hours. 911 for difficulty breathing or swallowing You were tested for today for COVID19 your test result should be back in the next 24-48 hours, you may call to the [facility] to see if your test results are back in the next 48 hours [phone] [facility] hours are 9am-9pm You was given a handout with instructions for Self Quarantine and Self isolation for while you wait on test results and what to do if they are positive If you are positive the Health Dept will be contacting you also Referrals: Lalito Partida [Primary Care Provider] - As needed Forms: Work/School Release Time of Disposition: 12:00 Medical Decision Making - Js Inquiry Pt receiving controlled substance: No Js was queried for this patient: No Vital Signs: 04/13/20 11:52 Temperature 97.9 F Temperature Source Oral Pulse Rate [Right Brachial] 73 Respiratory Rate 19 Blood Pressure [Right Arm] 123/70 Blood Pressure Mean [Right Arm] 87 Blood Pressure Position [Right Arm] Supine 02 Sat by Pulse Oximetry 98 [facility] [place] - General Stated complaint: wants COVID test Time Seen by Provider: 04/13/20 11:58 Mode of Arrival: Ambulatory Source of Information: Patient Limitations: No Limitations Description of Symptoms (Recalled from Triage Doc. by RN): Pt exposed to covid a few days ago. No symptoms HEENT Symptoms (Recalled from RN notes): No Resp Symptoms (Recalled from RN notes): No Skin Symptoms (Recalled from RN notes): No MS Symptoms (Recalled from RN notes): No Functional Status (Recalled from RN notes): wnl - History of Present Illness Provider Complaint: Patient states that she was recently around a co-worker at work that tested positive for COVID and her employer wanted her to come in and get tested States that she is not having any symptoms but wanted to get tested - Related Data Home Medications Medication Instructions Recorded Confirmed Ascorbic Acid [Vitamin C 500mg 500 mg PO DAILY 01/14/20 02/22/20 tablet] Atorvastatin Calcium [Lipitor 80mg 80 mg PO HS 01/14/20 02/22/20 Tablet*] Butalb/Acetaminophen/Caffeine 1 each PO BIDP PRN 01/14/20 02/22/20 [Fioricet 50-300-40 mg Capsule] Ferrous Sulfate [Slow Fe] 142 mg PO DAILY 01/14/20 02/22/20 Insulin Detemir [Levemir 55 unit SQ DAILY 01/14/20 02/22/20 100units/mL 3mL flexpen] Metoprolol Succinate [Metoprolol 12.5 mg PO BID 01/14/20 02/22/20 Succinate 25mg Tablet*] Pantoprazole Sodium [Protonix 40mg 40 mg PO DAILY 01/14/20 02/22/20 tablet] Potassium Chloride 20 meq PO DAILY 01/14/20 02/22/20 Sertraline HCl [Zoloft] 150 mg PO DAILY 01/14/20 02/22/20 Topiramate 50 mg PO DAILY 01/14/20 02/22/20 Levothyroxine Sodium 175 mcg PO DAILY 01/15/20 02/22/20 [Levothyroxine 175mcg (0.175mg) Tab] apixaban 5 mg tablet 5 mg PO BID PRN 01/31/20 02/22/20 megestrol 40 mg tablet 40 mg PO BID PRN 01/31/20 02/22/20 hydrochlorothiazide 25 mg tablet 25 mg PO tab 02/22/20 02/22/20 losartan 100 mg tablet 100 mg PO tab 02/22/20 02/22/20 Previous Rx's Medication Instructions Recorded Oxycodone HCl [OxyIR 5mg tablet] 10 mg PO Q4HP PRN #30 tab 01/19/20 Allergies Allergy/AdvReac Type Severity Reaction Status Date / Time Penicillins Allergy Unknown Verified 02/22/20 10:33 - Worker's Comp
[2020-04-13 12:04] VITALS: BP 123/70; PULSE 73; RESP 19; TEMP 36.6; O2SAT 98
== END 2020-04-13 12:06 | disposition home or self-care (01) ==
PROVIDERS: Emergency Provider Nurse Practitioner; PCP Family Medicine
DX: Z20.828 Contact with and (suspected) exposure to other viral communicable diseases (principal); E11.9 Type 2 diabetes mellitus without complications; I10 Essential (primary) hypertension; E78.5 Hyperlipidemia, unspecified; Z86.73 Personal history of transient ischemic attack (TIA), and cerebral infarction without residual deficits; G43.709 Chronic migraine without aura, not intractable, without status migrainosus; Z79.899 Other long term (current) drug therapy
CPT/HCPCS: 99201; U0003

== ENCOUNTER 2020-10-01 09:47 | Emergency (ER) | payer BC, SELFPAY ==
[2020-10-01 09:49] VITALS: BP 152/111; PULSE 122; RESP 14; TEMP 36.6; O2SAT 98; BMI 30.2
[2020-10-01 10:10] VITALS: BP 143/92; PULSE 103; RESP 16; O2SAT 95
--- NOTE | 2020-10-01 10:10 | HMH.EDABDPAI ---
ED Disposition Clinical Impression: Gastroenteritis Disposition: Home, Self-Care Condition on Discharge: Good Instructions: DI for Acute Abdominal Pain Prescriptions: Metoclopramide HCl [Reglan 10mg Tab] 10 mg PO QID PRN #20 tab PRN Reason: Nausea And Vomiting Prescription Printed Referrals: Lauren Villalobos MD [Primary Care Provider] - - Critical Care Critical Care Time: No Attestation: On 10/01/20, the high probability of a clinically significant, sudden or life threatening deterioration of the following system(s) required my full and direct attention, intervention and personal management. The time I documented below is in addition to time spent performing reported procedures but includes the following listed in this critical care notation. Medical Decision Making - Medical Records Medical records reviewed: Yes: I reviewed the patient's medical records. - Js Inquiry Pt receiving controlled substance: No Vital Signs: 10/01/20 09:49 Temperature 98 F Temperature Source Oral Pulse Rate [Right] 122 H Respiratory Rate 14 Blood Pressure [Right Arm] 152/111 H Blood Pressure Mean [Right Arm] 124 Blood Pressure Source [Right Arm] Automatic Cuff Blood Pressure Position [Right Arm] Sitting 02 Sat by Pulse Oximetry 98 - Lab Data Lab results reviewed: Yes: I reviewed the patient's lab results. Lab Results 10/01/20 10:10: Urine Color Yellow, Urine Appearance Clear, Urine pH 6.0, Ur Specific [place] 1.025, Urine Protein 1+, Urine Glucose (UA) Negative, Urine Ketones Negative, Urine Blood Negative, Urine Nitrate Negative, Urine Bilirubin Negative, Urine Urobilinogen 0.2, Ur Leukocyte Esterase Negative, Urine RBC None, Urine WBC None, Ur Squamous Epith Cells Occasional, Urine Bacteria None 10/01/20 10:28: WBC 12.3 H, RBC 4.90, Hgb 14.0, Hct 40.6, MCV 82.9, MCH 28.5, MCHC 34.4, RDW 14.7, Plt Count 294, MPV 6.9 L, Neut % (Auto) 72.8, Lymph % (Auto) 20.5, [place] % (Auto) 4.1, Eos % (Auto) 2.1, Baso % (Auto) 0.4, Neut # (Auto) 9.0 H, Lymph # (Auto) 2.5, [place] # (Auto) 0.5, Eos # (Auto) 0.3, Baso # (Auto) 0.1 10/01/20 10:28: Sodium 134 L, Potassium 4.1, Chloride 104, Carbon Dioxide 20 L, Anion Gap 14.1, BUN 11, Creatinine 0.80, Estimated Creat Clear 100, Estimated GFR 77, Est GFR ( Amer) 93, Glucose 176 H, Calcium 10.1, Total Bilirubin 0.8, AST 20, ALT 22, Alkaline Phosphatase 101, Total Protein 8.1, Albumin 4.6, Globulin 3.5 H, Albumin/Globulin Ratio 1.3 Result diagrams: 10/01/20 10:28 10/01/20 10:28 Orders (Tests/Meds): ED MEDICATIONS Discontinued Medications Generic Name Dose Route Start Last Admin Trade Name Christoq PRN Reason Stop Dose Admin Sodium Chloride 1,000 mls @ 999 mls/hr 10/01/20 10:15 10/01/20 10:36 Sod Chlor 0.9% 1000ml Bag IV 10/01/20 11:15 999 mls/hr .Q1H1M KARY Administration Ketorolac Tromethamine 30 mg 10/01/20 10:08 10/01/20 10:50 Ketorolac 30mg/Ml Vial IV 10/01/20 10:09 30 mg ONCE ONE Administration Metoclopramide HCl 10 mg 10/01/20 10:08 10/01/20 10:50 Metoclopramide Hcl 10mg/2ml Vial IVP 10/01/20 10:09 10 mg ONCE ONE Administration ORDERS Category Date Time Status Stool Culture Stat Micro 10/01/20 10:10 Received Medical Decision Narrative: Patient is initially tachycardic. Benign abdomen. Most likely infectious diarrhea. We will check a glucose and electrolyte panel. No red flag signs or symptoms of diarrhea to necessitate imaging. Less likely diverticulitis versus appendicitis given diffuse abdominal cramping associated with the diarrhea. Labs only significant for mild hyperglycemia. No evidence of DKA. Renal function intact. On reassessment, patient reports resolved symptoms. Heart rate improved to 100. Patient prescribed Reglan for her gastroparesis and nausea and vomiting. And advised to follow-up with her GI physician since these are relapsing and remitting symptoms. Return indications reviewed. Abdominal Pain H
[2020-10-01 10:17] LABS: Microscopic, Urine URINE MICROSCOPIC (MICROSCOPIC)
[2020-10-01 10:20] LABS: Appearance,Urine CLEAR (Clear); Bilirubin,Urine Negative (Negative); Blood, Urine Negative (Negative); Color,Urine YELLOW (Yellow); Glucose,Urine (UA) Negative (Negative); Ketones,Urine Negative (Negative); Leukocyte Esterase,Urine Negative (Negative); Nitrate,Urine Negative (Negative); Protein,Urine 1+ (Negative); Specific Gravity, Urine 1.025 (1.005-1.030); Urobilinogen,Urine 0.2 EU/dl (0.2)
[2020-10-01 10:35] LABS: Squamous Epithelial Cell,Urine Occasional #/hpf (0-5)
[2020-10-01 10:38] LABS: Basophils # 0.1 K/mm3 (0-0.2); Basophils % 0.4 % (0.1-2.0); Eosinophils # 0.3 K/mm3 (0.0-0.4); Eosinophils % 2.1 % (0.1-12.0); Hematocrit 40.6 % (37.0-47.0); Lymphocytes # 2.5 K/mm3 (0.7-4.5); Lymphocytes % 20.5 % (10-50); Mean Corpuscular HGB Conc 34.4 g/dL (31.8-35.4); Mean Corpuscular Hemoglobin 28.5 pg (27.0-31.2); Mean Corpuscular Volume 82.9 fl (81-99); Mean Platelet Volume 6.9 fl (7.4-10.4); Monocytes # 0.5 K/mm3 (0.1-1.0); Monocytes % 4.1 % (1.7-9.3); Neutrophils % 72.8 % (37.0-80.0); Platelet Count 294 K/mm3 (142-424); Red Cell Distribution Width 14.7 % (11.5-17.5); White Blood Count 12.3 K/mm3 (4.8-10.8)
[2020-10-01 10:41] VITALS: BP 143/93; PULSE 105; RESP 16
[2020-10-01 10:41] LABS: Chloride 104 mmol/L (98-107); Potassium 4.1 mmoL/L (3.5-5.1); Sodium 134 mmol/L (136-145)
[2020-10-01 10:43] LABS: Blood Urea Nitrogen 11 mg/dl (7-17); Creatinine Clearance Estimated 100 mL/min (50-200); Estimated Glomerular Filt Rate 77 ml/min (>60); GFR (African American) 93 ML/MIN (>60)
[2020-10-01 10:44] LABS: Alanine Aminotransferase 22 U/L (12-78); Albumin Level 4.6 g/dl (3.5-5.0); Albumin/Globulin Ratio 1.3 (1.1-1.8); Alkaline Phosphatase 101 U/L (38-126); Anion Gap 14.1 mEq/L (5-15); Aspartate Amino Transferase 20 U/L (14-36); Bilirubin,Total 0.8 mg/dl (0.2-1.3); Calcium 10.1 mg/dl (8.4-10.2); Carbon Dioxide 20 mmol/L (22.0-30.0); Globulin 3.5 g/dL (1.3-3.2); Glucose 176 mg/dl (74-100); Total Protein,Serum 8.1 g/dl (6.3-8.2)
[2020-10-01 11:00] VITALS: BP 150/99; PULSE 104; RESP 14; O2SAT 96
[2020-10-01 11:44] VITALS: BP 140/91; PULSE 100; RESP 16; TEMP 36.8
== END 2020-10-01 12:15 | disposition home or self-care (01) ==
PROVIDERS: Emergency Provider Emergency Medicine; PCP Internal Medicine
DX: K52.9 Noninfective gastroenteritis and colitis, unspecified (principal); D68.51 Activated protein C resistance; E11.9 Type 2 diabetes mellitus without complications; G43.709 Chronic migraine without aura, not intractable, without status migrainosus; I10 Essential (primary) hypertension; E78.5 Hyperlipidemia, unspecified; K31.84 Gastroparesis; Z79.899 Other long term (current) drug therapy; Z88.0 Allergy status to penicillin
CPT/HCPCS: 80053; 81001; 85025; 87045; 96365; 96375; 99283

== ENCOUNTER → 2020-12-30 09:13 | Outpatient (CLI) | payer BC, SELFPAY | PROVIDERS: PCP Family Medicine; Visit Provider Nurse Practitioner | DX: Z20.822 Contact with and (suspected) exposure to COVID-19 (principal) | CPT/HCPCS: C9803; U0003; U0005 ==

== ENCOUNTER → 2021-01-03 08:51 | Outpatient (CLI) | payer BC, SELFPAY | PROVIDERS: PCP Family Medicine; Visit Provider Nurse Practitioner | DX: Z20.822 Contact with and (suspected) exposure to COVID-19 (principal); U07.1 COVID-19 | CPT/HCPCS: C9803; U0003; U0005 ==

== ENCOUNTER 2021-01-07 14:26 | Emergency (ER) | payer BC, SELFPAY ==
[2021-01-07 14:27] VITALS: BP 139/98; PULSE 120; RESP 20; TEMP 36.9; O2SAT 93; BMI 31.1
--- NOTE | 2021-01-07 14:45 | XR_ITS ---
PROCEDURE: XR CHEST PORTABLE CLINICAL HISTORY: sob COMPARISON: No exams were available for comparison FINDINGS: The cardiomediastinal silhouette and pulmonary vascularity are within normal limits. Patchy density noted in the right mid to lower lung zone associated with atelectatic change. Atelectasis with consolidation noted in the mid to lower left lower lobe. No effusions. Low lung volumes. No acute bony abnormalities. IMPRESSION: Bilateral lower lobe airspace disease with atelectasis which may be seen with Covid19 pneumonia Dictated by: Emre Pinon MD 01/07/2021 15:49 Emre Pinon MD in [place] 01/07/2021 15:49
[2021-01-07 15:14] LABS: Basophils % 0.6 % (0.1-2.0); Eosinophils % 0.5 % (0.1-12.0); Hematocrit 42.1 % (37.0-47.0); Hemoglobin 13.9 g/dL (12.2-16.2); Lymphocytes % 25.3 % (10-50); Mean Corpuscular HGB Conc 32.9 g/dL (31.8-35.4); Mean Corpuscular Hemoglobin 28.3 pg (27.0-31.2); Mean Corpuscular Volume 85.9 fl (81-99); Mean Platelet Volume 8.2 fl (7.4-10.4); Monocytes # 0.1 K/mm3 (0.1-1.0); Monocytes % 3.2 % (1.7-9.3); Neutrophils # 2.8 K/mm3 (1.8-7.8); Neutrophils % 70.3 % (37.0-80.0); Platelet Count 140 K/mm3 (142-424); Red Cell Distribution Width 14.6 % (11.5-17.5)
--- NOTE | 2021-01-07 15:45 | HMH.EDGENADL ---
ED Disposition Clinical Impression: COVID-19, Pneumonia due to COVID-19 virus, Acute respiratory failure with hypoxia, Nausea Disposition: Home, Self-Care Condition on Discharge: Fair Instructions: DI for Shortness of Breath Additional Instructions: Call your PCPs office in the morning for follow-up. Return the emergency department for worsening shortness of breath, fever. Start your prescription antibiotics tomorrow morning. Prescriptions: Sulfamethoxazole/Trimethoprim [Bactrim DS tablet] 1 each PO BID #10 tab Transmission Status: Pending to [facility] Azithromycin [Z-Frederic 250mg Tab*] 250 mg PO UD DOSE PK #6 tab Transmission Status: Pending to [facility] Referrals: Lalito Partida [Primary Care Provider] - 01/08/21 (Call your PCP in the morning for follow-up) Time of Disposition: 17:25 - Critical Care Critical Care Time: No Attestation: On 01/07/21, the high probability of a clinically significant, sudden or life threatening deterioration of the following system(s) required my full and direct attention, intervention and personal management. The time I documented below is in addition to time spent performing reported procedures but includes the following listed in this critical care notation. Medical Decision Making - Medical Records Medical records reviewed: Yes: I reviewed the patient's medical records. - Js Inquiry Pt receiving controlled substance: No Vital Signs: 01/07/21 14:27 Temperature 98.4 F Temperature Source Oral Pulse Rate [Right Radial] 120 H Respiratory Rate 20 Blood Pressure [Right Arm] 139/98 H Blood Pressure Mean [Right Arm] 111 Blood Pressure Source [Right Arm] Automatic Cuff Blood Pressure Position [Right Arm] Sitting 02 Sat by Pulse Oximetry 93 L Oxygen Delivery Method Room Air - Lab Data Lab results reviewed: Yes: I reviewed the patient's lab results. Lab Results 01/07/21 15:00: WBC 4.0 L, RBC 4.90, Hgb 13.9, Hct 42.1, MCV 85.9, MCH 28.3, MCHC 32.9, RDW 14.6, Plt Count 140 L, MPV 8.2, Neut % (Auto) 70.3, Lymph % (Auto) 25.3, [place] % (Auto) 3.2, Eos % (Auto) 0.5, Baso % (Auto) 0.6, Neut # (Auto) 2.8, Lymph # (Auto) 1.0, [place] # (Auto) 0.1, Eos # (Auto) 0.0, Baso # (Auto) 0.0 01/07/21 15:00: Sodium 133 L, Potassium 4.2, Chloride 94 L, Carbon Dioxide 22, Anion Gap 21.2 H, BUN 9, Creatinine 0.80, Estimated Creat Clear 102, Estimated GFR 77, Est GFR ( Amer) 93, Glucose 426 H*, Calcium 9.9, Total Bilirubin 0.7, AST 57 H, ALT 47, Alkaline Phosphatase 100, Troponin I < 0.01, NT-Pro-B Natriuret Pep 29.1, Total Protein 8.3 H, Albumin 4.5, Globulin 3.8 H, Albumin/Globulin Ratio 1.2 Result diagrams: 01/07/21 15:00 01/07/21 15:00 Orders (Tests/Meds): ED MEDICATIONS Generic Name Dose Route Start Last Admin Trade Name Freq PRN Reason Stop Dose Admin Azithromycin 500 mg/ Sodium 250 mls @ 250 mls/hr 01/07/21 16:15 01/07/21 17:11 Chloride IV 01/21/21 16:14 250 mls/hr Q24H KARY Administration Ceftriaxone Sodium 1 gm/ 50 mls @ 100 mls/hr 01/07/21 16:15 01/07/21 16:22 Sodium Chloride IV 01/21/21 16:14 100 mls/hr Q24H KARY Administration Discontinued Medications Generic Name Dose Route Start Last Admin Trade Name Freq PRN Reason Stop Dose Admin Lactated Ringer's 1,000 mls @ 999 mls/hr 01/07/21 14:45 01/07/21 15:08 Lactated Ringer's 1000 Ml Bag IV 01/07/21 15:45 999 mls/hr .Q1H1M KARY Administration ORDERS Category Date Time Status Troponin I Q3H Lab 01/07/21 17:45 Ordered Troponin I Q3H Lab 01/07/21 20:45 Ordered Medical Decision Narrative: 50yo F evaluated for nausea with Covid. Patient is in no acute distress on initial evaluation. Her O2 sats on room air greater than 90%. She is able to speak in complete sentences and without increased work of breathing. Routine laboratory studies and chest x-ray are pending. Laboratory studies are not impressive. Chest x-ray demonstrates bilateral lower lobe pneumonia, cons
[2021-01-07 16:22] LABS: Alanine Aminotransferase 47 U/L (12-78); Albumin Level 4.5 g/dl (3.5-5.0); Albumin/Globulin Ratio 1.2 (1.1-1.8); Alkaline Phosphatase 100 U/L (38-126); Anion Gap 21.2 mEq/L (5-15); Aspartate Amino Transferase 57 U/L (14-36); Bilirubin,Total 0.7 mg/dl (0.2-1.3); Blood Urea Nitrogen 9 mg/dl (7-17); Calcium 9.9 mg/dl (8.4-10.2); Carbon Dioxide 22 mmol/L (22.0-30.0); Chloride 94 mmol/L (98-107); Creatinine Clearance Estimated 102 mL/min (50-200); Estimated Glomerular Filt Rate 77 ml/min (>60); GFR (African American) 93 ML/MIN (>60); Globulin 3.8 g/dL (1.3-3.2); Potassium 4.2 mmoL/L (3.5-5.1); Sodium 133 mmol/L (136-145); Total Protein,Serum 8.3 g/dl (6.3-8.2)
[2021-01-07 16:23] LABS: Glucose 426 mg/dl (74-100)
--- NOTE | 2021-01-07 16:23 | PC.NURSE ---
Lab reported critical glucose result of 426. notified.
[2021-01-07 16:32] LABS: NT Pro Brain Natriuretic Pep. 29.1 pg/mL (0-125)
[2021-01-07 16:33] LABS: Troponin I < 0.01 ng/ml (0.00-0.034)
--- NOTE | 2021-01-07 17:21 | PC.NURSE ---
Malcolm provided at home O2 for pt
[2021-01-07 18:42] VITALS: BP 119/80; PULSE 110; RESP 22; TEMP 36.8; O2SAT 91
== END 2021-01-07 18:45 | disposition home or self-care (01) ==
PROVIDERS: Emergency Provider Family Medicine; PCP Family Medicine
DX: U07.1 COVID-19 (principal); J12.82 Pneumonia due to coronavirus disease 2019; J96.01 Acute respiratory failure with hypoxia
CPT/HCPCS: 71045; 80053; 83880; 84484; 85025; 96365; 96367; 99282; J0456

== ENCOUNTER 2021-01-08 23:09 | Inpatient (IN) | payer BC, SELFPAY ==
[2021-01-08 23:03] VITALS: BP 144/97; PULSE 118; RESP 28; TEMP 38.7; O2SAT 89; BMI 31.5
[2021-01-08 23:04] VITALS: BMI 31.5
--- NOTE | 2021-01-08 23:10 | ECG_ITS ---
APPROVED REPORT Exam: Resting ECG HR:114 bpm ECG Measurements Heart Rate [address] 174 P 15 QRSd 76 QRS -43 QT 314 T 23 QTc 432 Conclusion Sinus tachycardia Left axis deviation Poor r wave progression Abnormal ECG Electronically signed by : Stephen Vasques MD 01/09/2021 17:28:04
[2021-01-08 23:27] LABS: ABG Base Excess -1.5 mmol/L (-2.4-2.3); ABG Oxygen Saturation 95 % (90-100); ABG PCO2 36.4 mmhg (35.0-45.0); ABG PH 7.42 mmol/L (7.35-7.45); ABG PO2 72.2 mmhg (80-100); ABG TCO2 24.1 mmhg (23-27)
[2021-01-08 23:29] LABS: Allen's Test Acceptable; Oxygen 36 %; Source Right Radial
[2021-01-08 23:31] VITALS: BP 132/78; PULSE 113; O2SAT 95
[2021-01-08 23:35] LABS: Basophils # 0.1 K/mm3 (0-0.2); Basophils % 1.1 % (0.1-2.0); Chloride 96 mmol/L (98-107); Eosinophils % 0.6 % (0.1-12.0); Hematocrit 38.4 % (37.0-47.0); Hemoglobin 12.2 g/dL (12.2-16.2); Lymphocytes % 20.3 % (10-50); Mean Corpuscular HGB Conc 31.8 g/dL (31.8-35.4); Mean Corpuscular Hemoglobin 27.6 pg (27.0-31.2); Mean Corpuscular Volume 86.6 fl (81-99); Mean Platelet Volume 9.2 fl (7.4-10.4); Monocytes # 0.2 K/mm3 (0.1-1.0); Monocytes % 3.7 % (1.7-9.3); Neutrophils # 3.5 K/mm3 (1.8-7.8); Neutrophils % 74.4 % (37.0-80.0); Platelet Count 141 K/mm3 (142-424); Red Blood Count 4.44 M/mm3 (4.20-5.40); Red Cell Distribution Width 14.8 % (11.5-17.5); White Blood Count 4.7 K/mm3 (4.8-10.8)
[2021-01-08 23:36] LABS: Sodium 129 mmol/L (136-145)
[2021-01-08 23:38] LABS: Alanine Aminotransferase 30 U/L (12-78); Albumin Level 3.8 g/dl (3.5-5.0); Albumin/Globulin Ratio 1.1 (1.1-1.8); Alkaline Phosphatase 79 U/L (38-126); Aspartate Amino Transferase 38 U/L (14-36); Bilirubin,Total 0.7 mg/dl (0.2-1.3); Blood Urea Nitrogen 8 mg/dl (7-17); Creatinine Clearance Estimated 118 mL/min (50-200); Estimated Glomerular Filt Rate 89 ml/min (>60); GFR (African American) 108 ML/MIN (>60); Globulin 3.4 g/dL (1.3-3.2); Total Protein,Serum 7.2 g/dl (6.3-8.2)
[2021-01-08 23:39] LABS: Calcium 9.2 mg/dl (8.4-10.2); Carbon Dioxide 23 mmol/L (22.0-30.0)
[2021-01-08 23:43] LABS: Glucose 430 mg/dl (74-100)
--- NOTE | 2021-01-08 23:43 | PC.NURSE ---
notified guera of critcal glucose 430
[2021-01-08 23:44] LABS: C-Reactive Protein 98.1 mg/L (0-4)
--- NOTE | 2021-01-08 23:50 | HMH.EDSOB ---
ED Disposition Clinical Impression: COVID-19, Pneumonia due to COVID-19 virus, History of stroke, Insulin dependent diabetes mellitus, Obesity (BMI 30.0-34.9) Respiratory failure with hypoxia Qualifiers: Chronicity: acute Qualified Code(s): J96.01 - Acute respiratory failure with hypoxia Disposition: Admitted As Inpatient Condition on Discharge: Serious Referrals: Lalito Partida [Primary Care Provider] - - Critical Care Critical Care Time: No Attestation: On 01/08/21, the high probability of a clinically significant, sudden or life threatening deterioration of the following system(s) required my full and direct attention, intervention and personal management. The time I documented below is in addition to time spent performing reported procedures but includes the following listed in this critical care notation. Medical Decision Making - Medical Records Medical records reviewed: Yes: I reviewed the patient's medical records. - Js Inquiry Pt receiving controlled substance: No Vital Signs: 01/08/21 23:03 01/08/21 23:31 01/09/21 00:00 Temperature 101.6 F H Temperature Source Oral Pulse Rate 113 H 103 H Pulse Rate [Right] 118 H Respiratory Rate 28 H Blood Pressure 132/78 131/86 Blood Pressure [Right Arm] 144/97 H Blood Pressure Mean [Right Arm] 112 02 Sat by Pulse Oximetry 89 L 95 95 Oxygen Delivery Method Nasal Cannula Oxygen Flow Rate (LPM) 4 01/09/21 01:00 Temperature Temperature Source Pulse Rate 91 H Pulse Rate [Right] Respiratory Rate Blood Pressure 112/63 Blood Pressure [Right Arm] Blood Pressure Mean [Right Arm] 02 Sat by Pulse Oximetry 92 L Oxygen Delivery Method Oxygen Flow Rate (LPM) 5 - Lab Data Lab results reviewed: Yes: I reviewed the patient's lab results. Lab Results 01/08/21 23:04: Specimen Source Right radial, O2 % 36, ABG pH 7.42, ABG pCO2 36.4, ABG pO2 72.2 L, ABG HCO3 23.0, ABG Total CO2 24.1, ABG O2 Saturation 95, ABG Base Excess -1.5, Emre Test Acceptable 01/08/21 23:23: WBC 4.7 L, RBC 4.44, Hgb 12.2, Hct 38.4, MCV 86.6, MCH 27.6, MCHC 31.8, RDW 14.8, Plt Count 141 L, MPV 9.2, Neut % (Auto) 74.4, Lymph % (Auto) 20.3, [place] % (Auto) 3.7, Eos % (Auto) 0.6, Baso % (Auto) 1.1, Neut # (Auto) 3.5, Lymph # (Auto) 1.0, [place] # (Auto) 0.2, Eos # (Auto) 0.0, Baso # (Auto) 0.1, ESR 50 H 01/08/21 23:23: Sodium 129 L, Potassium 4.0, Chloride 96 L, Carbon Dioxide 23, Anion Gap 14.0, BUN 8, Creatinine 0.70, Estimated Creat Clear 118, Estimated GFR 89, Est GFR ( Amer) 108, Glucose 430 H*, Calcium 9.2, Total Bilirubin 0.7, AST 38 H D, ALT 30 D, Alkaline Phosphatase 79, C-Reactive Protein 98.1 H, Total Protein 7.2, Albumin 3.8 D, Globulin 3.4 H, Albumin/Globulin Ratio 1.1 01/09/21 00:00: Acetone Level None detected Result diagrams: 01/08/21 23:23 01/08/21 23:23 Orders (Tests/Meds): ED MEDICATIONS Generic Name Dose Route Start Last Admin Trade Name Freq PRN Reason Stop Dose Admin Sodium Chloride 1,000 mls @ 999 mls/hr 01/08/21 23:15 01/08/21 23:23 Sod Chlor 0.9% 1000ml Bag IV 01/09/21 00:15 999 mls/hr .Q1H1M KARY Administration Discontinued Medications Generic Name Dose Route Start Last Admin Trade Name Freq PRN Reason Stop Dose Admin Acetaminophen 500 mg 01/08/21 23:05 01/08/21 23:24 Acetaminophen 500mg Tab PO 01/08/21 23:06 Not Given ONCE ONE Acetaminophen 1,000 mg 01/08/21 23:24 01/08/21 23:25 Acetaminophen 500mg Tab PO 01/08/21 23:25 1,000 mg ONCE ONE Administration Dexamethasone Sodium Phosphate 10 mg 01/08/21 23:05 01/08/21 23:23 Dexamethasone 4mg/Ml 5ml Mdv IV 01/08/21 23:06 10 mg ONCE ONE Administration Iopamidol 70 ml 01/09/21 00:56 01/09/21 00:57 Iopamidol-370 (76%);100ml Bottle IV 01/09/21 00:57 70 ml ONCE ONE Administration Ketorolac Tromethamine 30 mg 01/08/21 23:05 01/08/21 23:23 Ketorolac 30mg/Ml Vial IV 01/08/21 23:06 30 mg ONCE ONE Administration Ondakarinae
[2021-01-09] VITALS (25 sets, daily range): BP systolic 100–143; BP diastolic 62–86; PULSE 66–103; RESP 16–22; TEMP 36.4–36.8; O2SAT 88–98
[2021-01-09 00:07] LABS: Erythrocyte Sedimentation Rate 50 mm/hr (0-20)
[2021-01-09 00:53] LABS: Acetone, Serum (Rapid) None Detected (None Detect)
--- NOTE | 2021-01-09 02:00 | PC.NURSE ---
pt currently boarding in ER due to no beds available
--- NOTE | 2021-01-09 03:00 | PC.NURSE ---
pt currently resting quietly and voiced no c/o @ this time
--- NOTE | 2021-01-09 04:00 | PC.NURSE ---
pt sleeping call light within reach.
--- NOTE | 2021-01-09 05:00 | PC.NURSE ---
pt resting quietly and voiced no c/o
--- NOTE | 2021-01-09 06:00 | PC.NURSE ---
AM labs collected @ this time
[2021-01-09 06:27] LABS: Basophils % 0.2 % (0.1-2.0); Eosinophils % 0.5 % (0.1-12.0); Hematocrit 37.5 % (37.0-47.0); Hemoglobin 11.4 g/dL (12.2-16.2); Lymphocytes # 0.7 K/mm3 (0.7-4.5); Lymphocytes % 15.9 % (10-50); Mean Corpuscular HGB Conc 30.4 g/dL (31.8-35.4); Mean Corpuscular Hemoglobin 27.6 pg (27.0-31.2); Mean Corpuscular Volume 90.6 fl (81-99); Mean Platelet Volume 9.1 fl (7.4-10.4); Monocytes # 0.1 K/mm3 (0.1-1.0); Monocytes % 2.2 % (1.7-9.3); Neutrophils # 3.4 K/mm3 (1.8-7.8); Neutrophils % 81.2 % (37.0-80.0); Platelet Count 124 K/mm3 (142-424); Red Blood Count 4.14 M/mm3 (4.20-5.40); Red Cell Distribution Width 14.8 % (11.5-17.5); White Blood Count 4.2 K/mm3 (4.8-10.8)
[2021-01-09 06:46] LABS: Blood Urea Nitrogen 15 mg/dl (7-17); Calcium 8.9 mg/dl (8.4-10.2); Carbon Dioxide 21 mmol/L (22.0-30.0); Chloride 99 mmol/L (98-107); Creatinine Clearance Estimated 118 mL/min (50-200); Estimated Glomerular Filt Rate 89 ml/min (>60); GFR (African American) 108 ML/MIN (>60); Magnesium 1.7 mg/dl (1.6-2.3); Sodium 132 mmol/L (136-145)
[2021-01-09 06:57] LABS: Glucose 623 mg/dl (74-100)
--- NOTE | 2021-01-09 07:32 | PC.NURSE ---
Received report from Adelia Simmons, RN/ Pt resting at this time.
--- NOTE | 2021-01-09 08:12 | PC.NURSE ---
Pt up to bathroom. Diabetic breakfast tray ordered.
--- NOTE | 2021-01-09 10:05 | HMH.PHAINT ---
MEDICATION RECONCILIATION COMPLETED FROM [employer] DATA AND MED LIST FROM THE DR'S OFFICE
--- NOTE | 2021-01-09 11:17 | PC.NURSE ---
1112 room 203 for room assignment
--- NOTE | 2021-01-09 11:18 | PC.NURSE ---
Went into room and changed sheets and straightened pt up. FSBS read HI, notified lab that I would need verification stick.
[2021-01-09 12:09] LABS: Glucose,Random 715 mg/dL (74-100)
--- NOTE | 2021-01-09 12:32 | PC.NURSE ---
Pt up on side of bed eating lunch.
--- NOTE | 2021-01-09 12:38 | PC.NURSE ---
called Dr. Vasques office regarding BS of 715. Advised he would have to call me back.
--- NOTE | 2021-01-09 12:56 | PC.NURSE ---
Spoke with Dr. Vasques and notified him of BS results. He advised to give pt 10 units of IV insulin and start pt on high intensity sliding scale and obtain serum acetone. Notified Pharmacy and lab of new orders.
--- NOTE | 2021-01-09 13:04 | PC.NURSE ---
Called report to NIEVES De La Cruz
[2021-01-09 13:35] LABS: Acetone, Serum (Rapid) Detected (None Detect)
[2021-01-09 14:44] LABS: Alanine Aminotransferase 37 U/L (12-78); Albumin Level 3.8 g/dl (3.5-5.0); Albumin/Globulin Ratio 1.3 (1.1-1.8); Alkaline Phosphatase 84 U/L (38-126); Anion Gap 16.2 mEq/L (5-15); Aspartate Amino Transferase 35 U/L (14-36); Bilirubin,Total 0.6 mg/dl (0.2-1.3); Blood Urea Nitrogen 20 mg/dl (7-17); Calcium 9.7 mg/dl (8.4-10.2); Carbon Dioxide 23 mmol/L (22.0-30.0); Chloride 98 mmol/L (98-107); Creatinine Clearance Estimated 103 mL/min (50-200); Estimated Glomerular Filt Rate 77 ml/min (>60); GFR (African American) 93 ML/MIN (>60); Potassium 4.2 mmoL/L (3.5-5.1); Sodium 133 mmol/L (136-145); Total Protein,Serum 6.8 g/dl (6.3-8.2)
[2021-01-09 14:52] LABS: Glucose 657 mg/dl (74-100)
[2021-01-09 14:53] LABS: Glucose,Random 659 mg/dL (74-100)
--- NOTE | 2021-01-09 14:56 | PC.NURSE ---
1452-Stat glucose results read by Maryanne in lab. verified name, , and room number. 1455-Notified MD Vasques, NNO @ this time
[2021-01-09 17:12] LABS: POC Glucose,Bedside 468 (70-110)
--- NOTE | 2021-01-09 17:32 | HMH.HP ---
*Admission Date: 01/09/21 *Chief complaint: Dyspnea *History of present illness: 50-year-old white female with diabetes, who was diagnosed with COVID-19 infection on 01/03/2021. Her boyfriend was admitted to [facility] for respiratory distress a couple of days ago, but patient had been feeling fairly good until early on the morning of admission when she began to get short of air, coughing, and came to the hospital. Found to have significant hyperglycemia. Found to have significant hypoxemia. Admitted to hospital for IV therapy, oxygen support and further diagnostic testing. She reports vaccination for Covid in August of this year. Her primary care physician is in [place]. [facility] History I have reviewed the patient's past medical history: Yes Medical History: Reports:: Cerebrovascular Accident, Diabetes Mellitus Type 2, Hyperlipidemia, Hypertension, Migraine Denies:: Cancer, Diabetes Mellitus Type 1, MRSA *Have you ever received a pneumonia vaccine?: No *Have you received a flu vaccine this season?: No Other Medical History: Reports: Anemia, Fibromyalgia, Hypothyroidism Other Surgeries: Yes: Hysterectomy-Total, Tubal Ligation, Other Amputation: No Fractures: No - *Social History Last grade of school completed: Some college Smoking Status: Never smoker Alcohol Intake: never Substance Use Type: denies use *Occupational Status:: employed Housing: house Household Members: significant other *Travel in the last 8 weeks: None Family Hx:: Asthma, Cancer, Heart Attack [employer] history: Uterine Fibroids, Tubal Ligation Review of Systems - Review of Systems Review of systems:: pertinent systems reviewed and negative unless documented below Patient reports dyspnea, denies chest pain, or swelling. Denies urinary complaints. Does report nausea, denies diarrhea. Otherwise review of systems negative - *Neurologic Reports headache(s), Denies localized weakness, Denies seizure-like activity Meds Home Medications Medication Instructions Recorded Confirmed Type Ascorbic Acid [Vitamin C 500mg 500 mg PO DAILY 01/14/20 01/08/21 History tablet] Atorvastatin Calcium [Lipitor 80mg 80 mg PO HS 01/14/20 01/08/21 History Tablet*] Butalb/Acetaminophen/Caffeine 1 each PO BID PRN 01/14/20 01/09/21 History [Fioricet 50-300-40 mg Capsule] Ferrous Sulfate [Slow Fe] 142 mg PO DAILY 01/14/20 01/08/21 History Insulin Detemir [Levemir 55 unit SQ DAILY 01/14/20 01/08/21 History 100units/mL 3mL flexpen] Pantoprazole Sodium [Protonix 40mg 40 mg PO DAILY 01/14/20 01/08/21 History tablet] Sertraline HCl [Zoloft] 150 mg PO DAILY 01/14/20 01/08/21 History Ondansetron [Zofran 4mg ODT] 4 mg PO TIDP PRN #10 tab 01/07/21 01/08/21 Rx Azithromycin [Z-Frederic 250mg Tab*] 250 mg PO UD DOSE PK 01/08/21 01/08/21 History Apixaban [Eliquis 2.5mg tab] 2.5 mg PO BID 01/09/21 01/09/21 History Levothyroxine Sodium 150 mcg PO DAILY 01/09/21 01/09/21 History [Levothyroxine 150mcg (0.15mg) Tab] Losartan Potassium 50 mg PO DAILY 01/09/21 01/09/21 History Metformin HCl [Metformin HCl ER] 1,000 mg PO BID 01/09/21 01/09/21 History Metoprolol Tartrate [Lopressor 12.5 mg PO BID 01/09/21 01/09/21 History 25mg tablet] Allergies Allergy/AdvReac Type Severity Reaction Status Date / Time Penicillins Allergy Unknown Verified 10/01/20 10:35 Exam Vital signs and Labs for Last 24 Hours: Temp Pulse Resp BP Pulse Ox 97.7 F 72 18 116/75 93 L 01/09/21 16:00 01/09/21 17:00 01/09/21 17:00 01/09/21 17:00 01/09/21 17:00 Laboratory Results - last 24 hr 01/08/21 23:04: Specimen Source Right radial, O2 % 36, ABG pH 7.42, ABG pCO2 36.4, ABG pO2 72.2 L, ABG HCO3 23.0, ABG Total CO2 24.1, ABG O2 Saturation 95, ABG Base Excess -1.5, Emre Test Acceptable 01/08/21 23:23: WBC 4.7 L, RBC 4.44, Hgb 12.2, Hct 38.4, MCV 86.6, MCH 27.6, MCHC 31.8, RDW 14.8, Plt Count 141 L, MPV 9.2, Neut % (Auto) 74.4, Lymph % (Auto) 20.3, [place] % (Auto) 3.7
[2021-01-09 20:43] LABS: POC Glucose,Bedside 371 (70-110)
[2021-01-09 20:43] LABS: POC Glucose,Bedside 427 (70-110)
--- NOTE | 2021-01-09 22:59 | PC.NURSE ---
She is A&Ox4. She continues on an insulin gtt. Her O2 has been increased to 6LPM n/c r/t decreasing O2 sats. She is currently 91% on 6LPM n/c. She voids per BSC. Received PRN medication for reported headache. She is aware of the need for sputum. She had some spit in a previous cup. She did use her incentive spirometer and was educated on the importance of using it.
--- NOTE | 2021-01-09 23:05 | CT_ITS ---
PROCEDURE INFORMATION: Exam: CTA Chest With Contrast Exam date and time: 01/09/2021 11:05 PM Age: 50 years old Clinical indication: Shortness of breath; Patient HX: Covid; Additional info: SOA TECHNIQUE: Imaging protocol: Computed tomographic angiography of the chest with contrast. 3D rendering (Not supervised by radiologist): MIP and/or 3D reconstructed images were created by the technologist. Radiation optimization: All CT scans at this facility use at least one of these dose optimization techniques: automated exposure control; mA and/or kV adjustment per patient size (includes targeted exams where dose is matched to clinical indication); or iterative reconstruction. Contrast material: ISOVUE 370; Contrast volume: 370 ml; Contrast route: INTRAVENOUS (IV); COMPARISON: CR XR CHEST PORTABLE 01/09/2021 12:19 AM FINDINGS: Pulmonary arteries: The pulmonary trunk, main, and branch pulmonary arteries contain no filling defects. Aorta: Unremarkable. No aortic aneurysm. No aortic dissection. Lungs: Amorphous interstitial infiltrates present within the lungs. Predilection for mid and lower lung zones. Many of the infiltrates have a peripheral distribution. Primary diagnostic consideration would be viral interstitial pneumonitis including interstitial pneumonitis caused by Covid 19. Pleural spaces: Unremarkable. No pneumothorax. No pleural effusion. Heart: No cardiomegaly. No pericardial effusion. Heart RV/LV ratio: Within normal limits. Coronary arteries: There is atheromatous calcification within the left coronary artery. Mediastinal space: No evidence of mediastinal or hilar mass. Lymph nodes: Unremarkable. No enlarged lymph nodes. Bones/joints: Spinal degenerative changes. Prominent dextroconvex lower thoracic and upper lumbar scoliosis. No acute fracture. Soft tissues: Hepatosplenomegaly with changes of hepatic steatosis. IMPRESSION: 1. No evidence of main or branch pulmonary embolism. 2. 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 3. Hepatosplenomegaly with changes of hepatic steatosis. 4. Prominent dextroconvex lower thoracic and upper lumbar scoliosis.
--- NOTE | 2021-01-09 23:05 | XR_ITS ---
PROCEDURE INFORMATION: Exam: XR Chest Exam date and time: 01/09/2021 11:05 PM Age: 50 years old Clinical indication: Shortness of breath; Patient HX: Covid; Additional info: SOA TECHNIQUE: Imaging protocol: XR of the chest. Views: 1 view. COMPARISON: CR XR CHEST PORTABLE 01/07/2021 3:24 PM FINDINGS: Limited inspiration and penetration of the chest with obese body habitus. Lungs: Patchy areas of infiltration present within both mid and lower lung zones. The degree of infiltration appears more prominent when compared with prior examination. Pleural spaces: Unremarkable. No pleural effusion. No pneumothorax. Heart/Mediastinum: Unremarkable. No cardiomegaly. Bones/joints: Unremarkable. IMPRESSION: The degree of patchy infiltration within both mid and lower lung zones appears worse when compared with prior examination of 01/07/2021. Progress examination is suggested.
[2021-01-10] VITALS (15 sets, daily range): BP systolic 105–130; BP diastolic 65–82; PULSE 70–100; RESP 26–30; TEMP 36.4–36.8; O2SAT 88–97; BMI 29.9
[2021-01-10 00:12] LABS: POC Glucose,Bedside 178 (70-110)
[2021-01-10 00:12] LABS: POC Glucose,Bedside 232 (70-110)
[2021-01-10 00:12] LABS: POC Glucose,Bedside 292 (70-110)
[2021-01-10 00:12] LABS: POC Glucose,Bedside 182 (70-110)
[2021-01-10 00:12] LABS: POC Glucose,Bedside 222 (70-110)
--- NOTE | 2021-01-10 01:32 | PC.NURSE ---
Pt's O2 is 86% on 6LPM n/c. Respiratory called to verify sat.
--- NOTE | 2021-01-10 01:55 | PC.NURSE ---
Pt placed on 50% venti by respiratory.
--- NOTE | 2021-01-10 03:12 | PC.NURSE ---
Pt is pulling off her venti-mask stating it is too cold and too much pressure. Sats decreased to 78% r/t her taking off her mask. Placed on a non-breather.
[2021-01-10 05:25] LABS: POC Glucose,Bedside 149 (70-110)
[2021-01-10 06:12] LABS: Basophils % 0.2 % (0.1-2.0); Eosinophils # 0.1 K/mm3 (0.0-0.4); Eosinophils % 0.8 % (0.1-12.0); Hematocrit 33.4 % (37.0-47.0); Hemoglobin 10.6 g/dL (12.2-16.2); Lymphocytes # 1.8 K/mm3 (0.7-4.5); Mean Corpuscular HGB Conc 31.8 g/dL (31.8-35.4); Mean Corpuscular Hemoglobin 27.9 pg (27.0-31.2); Mean Corpuscular Volume 87.8 fl (81-99); Mean Platelet Volume 7.9 fl (7.4-10.4); Monocytes # 0.2 K/mm3 (0.1-1.0); Monocytes % 3.9 % (1.7-9.3); Neutrophils # 3.7 K/mm3 (1.8-7.8); Platelet Count 192 K/mm3 (142-424); Red Cell Distribution Width 14.9 % (11.5-17.5); White Blood Count 5.7 K/mm3 (4.8-10.8)
[2021-01-10 06:23] LABS: Alanine Aminotransferase 43 U/L (12-78); Albumin/Globulin Ratio 1.1 (1.1-1.8); Alkaline Phosphatase 69 U/L (38-126); Anion Gap 12.6 mEq/L (5-15); Aspartate Amino Transferase 72 U/L (14-36); Bilirubin,Total 0.3 mg/dl (0.2-1.3); Blood Urea Nitrogen 13 mg/dl (7-17); Calcium 8.7 mg/dl (8.4-10.2); Carbon Dioxide 22 mmol/L (22.0-30.0); Chloride 111 mmol/L (98-107); Creatinine Clearance Estimated 130 mL/min (50-200); Estimated Glomerular Filt Rate 107 ml/min (>60); GFR (African American) 129 ML/MIN (>60); Globulin 2.8 g/dL (1.3-3.2); Glucose 152 mg/dl (74-100); Potassium 3.6 mmoL/L (3.5-5.1); Sodium 142 mmol/L (136-145); Total Protein,Serum 5.8 g/dl (6.3-8.2)
[2021-01-10 06:34] LABS: POC Glucose,Bedside 148 (70-110)
[2021-01-10 06:34] LABS: POC Glucose,Bedside 157 (70-110)
[2021-01-10 06:34] LABS: POC Glucose,Bedside 145 (70-110)
[2021-01-10 06:34] LABS: POC Glucose,Bedside 144 (70-110)
[2021-01-10 06:34] LABS: POC Glucose,Bedside 143 (70-110)
[2021-01-10 06:34] LABS: POC Glucose,Bedside 158 (70-110)
[2021-01-10 06:45] LABS: Magnesium 1.8 mg/dl (1.6-2.3)
[2021-01-10 07:11] LABS: Acetone, Serum (Rapid) None Detected (None Detect)
--- NOTE | 2021-01-10 07:20 | P.CONPHA_ITS ---
[facility] Pharmacy VTE Monitoring - Patient Demographics Admission date: 01/09/21 Report Date: 01/10/21 Time: 07:20 Allergies/Adverse Reactions: Patient Allergies Penicillins Allergy (Unknown, Verified 10/01/20 10:35) Height: 1.55 m Weight: 72.03 kg Patient Problems: Current Active Problems COVID-19 (Acute) Pneumonia due to COVID-19 virus (Acute) Respiratory failure with hypoxia (Acute) Obesity (BMI 30.0-34.9) (Acute) Diabetic ketoacidosis (Acute) History of stroke (Acute) Insulin dependent diabetes mellitus (Chronic) - VTE Risk Labs: VTE Related Lab Results Hgb 10.6 g/dL (12.2-16.2) L 01/10/21 05:28 Hct 33.4 % (37.0-47.0) L 01/10/21 05:28 Plt Count 192 K/mm3 (142-424) D 01/10/21 05:28 BUN 13 mg/dl (7-17) D 01/10/21 05:28 Creatinine 0.60 mg/dl (0.52-1.04) D 01/10/21 05:28 Estimated Creat Clear 130 mL/min (50-200) 01/10/21 05:28 Was VTE Risk Assessment Performed: Yes VTE Score: 2 VTE Risk Level: Low Risk Clinical Trial Participant: No - Prophylaxis VTE Prophylaxis Ordered?: Yes Types of VTE Prophylaxis: TEDS Knee High
--- NOTE | 2021-01-10 08:24 | HMH.ACPN2 ---
Internal Medicine - PN: Subj *Date: 01/10/21 *Time: 08:24 Interval history: Patient tolerated insulin drip regimen overnight well. Blood sugar significantly improved in the mid 100s. Necessitated dextrose infusion per protocol. Gap closed this morning. Tolerating fair p.o. intake. Denies any nausea or vomiting. Still complains of feeling very weak and fatigued. Required over 120 units of insulin in the past 18 hours. Remains afebrile. Oxygen requirement increased to nonrebreather however patient satting mid to high 90s at this time, desats quickly when removes mask to talk but responds quickly as well when she puts mask back in place. Exam Vital signs and Labs for Last 24 Hours: Temp Pulse Resp BP Pulse Ox 98.2 F 83 20 115/72 97 01/10/21 07:32 01/10/21 06:30 01/09/21 20:00 01/10/21 06:00 01/10/21 06:30 Laboratory Results - last 24 hr 01/09/21 11:29: Random Glucose 715 H* D 01/09/21 12:57: Acetone Level Detected 01/09/21 14:20: Sodium 133 L, Potassium 4.2, Chloride 98, Carbon Dioxide 23, Anion Gap 16.2 H, BUN 20 H D, Creatinine 0.80, Estimated Creat Clear 103, Estimated GFR 77, Est GFR ( Amer) 93, Glucose 657 H*, Calcium 9.7, Total Bilirubin 0.6, AST 35, ALT 37, Alkaline Phosphatase 84, Total Protein 6.8, Albumin 3.8, Globulin 3.0, Albumin/Globulin Ratio 1.3 01/09/21 14:20: Random Glucose 659 H* 01/09/21 16:59: POC Glucose 468 H* 01/09/21 17:51: POC Glucose 427 H* 01/09/21 19:17: POC Glucose 371 H* 01/09/21 20:22: POC Glucose 292 H 01/09/21 21:12: POC Glucose 232 H 01/09/21 22:12: POC Glucose 222 H 01/09/21 22:55: POC Glucose 178 H 01/10/21 00:04: POC Glucose 182 H 01/10/21 01:18: POC Glucose 157 H 01/10/21 02:25: POC Glucose 145 H 01/10/21 03:12: POC Glucose 148 H 01/10/21 03:59: POC Glucose 144 H 01/10/21 05:17: POC Glucose 149 H 01/10/21 05:28: WBC 5.7 D, RBC 3.80 L, Hgb 10.6 L, Hct 33.4 L, MCV 87.8, MCH 27.9, MCHC 31.8, RDW 14.9, Plt Count 192 D, MPV 7.9, Neut % (Auto) 64.0, Lymph % (Auto) 31.0, [place] % (Auto) 3.9, Eos % (Auto) 0.8, Baso % (Auto) 0.2, Neut # (Auto) 3.7, Lymph # (Auto) 1.8, [place] # (Auto) 0.2, Eos # (Auto) 0.1, Baso # (Auto) 0.0 01/10/21 05:28: Magnesium 1.8 01/10/21 05:28: Sodium 142, Potassium 3.6, Chloride 111 H, Carbon Dioxide 22, Anion Gap 12.6, BUN 13 D, Creatinine 0.60 D, Estimated Creat Clear 130, Estimated GFR 107, Est GFR ( Amer) 129 D, Glucose 152 H D, Calcium 8.7, Total Bilirubin 0.3, AST 72 H D, ALT 43, Alkaline Phosphatase 69, Total Protein 5.8 L, Albumin 3.0 L D, Globulin 2.8, Albumin/Globulin Ratio 1.1 01/10/21 05:28: Acetone Level None detected 01/10/21 05:53: POC Glucose 158 H 01/10/21 06:26: POC Glucose 143 H I & O for Last 24 hours: Intake & Output 01/07/21 01/08/21 01/09/21 01/10/21 23:59 23:59 23:59 23:59 Intake Total 360 / 360 3513 / 3513 Balance 360 / 360 3513 / 3513 Weight 75.75 kg 72.03 kg - Constitutional mild distress, obese - *Routine HEENT Exam Head: Present: normocephalic Eye: Present: EOMI, PERRL ENT: Present: mucous membranes moist - *Routine Neck Exam Present: supple. Absent: lymphadenopathy - *Routine Respiratory Exam Present: CTA bilaterally, crackles (bilateral bases) - *Routine Cardiovascular Exam Present: RRR - *Routine Abdominal Exam Present: soft, normoactive bowel sounds. Absent: tenderness - *Routine Extremities Exam Present: edema (trace). Absent: cyanosis, clubbing - *Routine Skin Exam Present: warm. Absent: rash - *Routine Neurological Exam Present: alert, oriented X3 Assessment and Plan (1) Pneumonia due to COVID-19 virus Status: Acute Category: Medical Code(s): U07.1 - COVID-19; J12.82 - Pneumonia due to coronavirus disease 2019 (2) COVID-19 Status: Acute Category: Medical Code(s): U07.1 - COVID-19 (3) Diabetic ketoacidosis Status: Resolved Category: Medical Code(s): E11.10 - Type 2 diabetes mellitus with ketoacidosis without coma (4) Obesity (BMI 30.0-
[2021-01-10 11:29] LABS: POC Glucose,Bedside 237 (70-110)
[2021-01-10 16:44] LABS: POC Glucose,Bedside 197 (70-110)
[2021-01-10 16:45] LABS: Chloride 108 mmol/L (98-107); Potassium 3.6 mmoL/L (3.5-5.1)
[2021-01-10 16:48] LABS: Blood Urea Nitrogen 13 mg/dl (7-17); Calcium 8.6 mg/dl (8.4-10.2); Carbon Dioxide 26 mmol/L (22.0-30.0); Creatinine Clearance Estimated 112 mL/min (50-200); Estimated Glomerular Filt Rate 89 ml/min (>60); GFR (African American) 108 ML/MIN (>60); Glucose 196 mg/dl (74-100)
[2021-01-10 17:05] LABS: Anion Gap 10.6 mEq/L (5-15); Sodium 141 mmol/L (136-145)
[2021-01-10 22:00] LABS: POC Glucose,Bedside 250 (70-110)
[2021-01-11] VITALS (9 sets, daily range): BP systolic 113–155; BP diastolic 61–79; PULSE 60–100; RESP 14–30; TEMP 36.4–36.8; O2SAT 92–96; BMI 29.4
[2021-01-11 05:32] LABS: POC Glucose,Bedside 392 (70-110)
--- NOTE | 2021-01-11 06:30 | PC.NURSE ---
Pt remains on 50% venti. O2 sats currently 95%. Pt has been educated multiple times to leave mask on. O2 sats decrease to lower 80s immediately after pt takes mask off. Pt has ambulated to to [facility] x2 this shift. Has also had 2 incontinent episodes, therefore accurate urine output was not obtained. No other concerns. No complaints voiced. Will continue to monitor.
--- NOTE | 2021-01-11 06:47 | HMH.ACPN2 ---
Internal Medicine - PN: Subj *Date: 01/11/21 *Time: 08:05 Interval history: Did well overnight. Tolerated Ventimask at 50% with saturations in the mid 90s. Eating breakfast this morning on interview. Remained hemodynamically stable, afebrile. Blood sugar fairly well controlled on current regimen. Patient complains of prominent cough this morning. Nonproductive. No nausea or vomiting. Exam Vital signs and Labs for Last 24 Hours: Temp Pulse Resp BP Pulse Ox 97.6 F 67 20 129/79 92 L 01/11/21 04:00 01/11/21 04:00 01/11/21 04:00 01/11/21 04:00 01/11/21 04:00 Laboratory Results - last 24 hr 01/10/21 05:28: Magnesium 1.8 01/10/21 05:28: Acetone Level None detected 01/10/21 11:14: POC Glucose 237 H 01/10/21 15:47: POC Glucose 197 H 01/10/21 16:10: Sodium 141, Potassium 3.6, Chloride 108 H, Carbon Dioxide 26, Anion Gap 10.6, BUN 13, Creatinine 0.70, Estimated Creat Clear 112, Estimated GFR 89, Est GFR ( Amer) 108, Glucose 196 H D, Calcium 8.6 01/10/21 21:36: POC Glucose 250 H 01/10/21 : Hemoglobin A1c 13.0 H 01/11/21 05:13: POC Glucose 392 H* I & O for Last 24 hours: Intake & Output 01/08/21 01/09/21 01/10/21 01/11/21 23:59 23:59 23:59 23:59 Intake Total 360 / 360 4113 / 4113 Output Total 2000 / 2500 500 / 500 Balance 360 / 360 2113 / 1613 -500 / -500 Weight 75.75 kg 72.03 kg 70.624 kg Narrative: - Constitutional mild distress, obese - *Routine HEENT Exam Head: Present: normocephalic Eye: Present: EOMI, PERRL ENT: Present: mucous membranes moist - *Routine Neck Exam Present: supple. Absent: lymphadenopathy - *Routine Respiratory Exam Present: CTA bilaterally, crackles (bilateral bases) - *Routine Cardiovascular Exam Present: RRR - *Routine Abdominal Exam Present: soft, normoactive bowel sounds. Absent: tenderness - *Routine Extremities Exam Present: edema (trace). Absent: cyanosis, clubbing - *Routine Skin Exam Present: warm. Absent: rash - *Routine Neurological Exam Present: alert, oriented X3 Assessment and Plan (1) Pneumonia due to COVID-19 virus Status: Acute Category: Medical Code(s): U07.1 - COVID-19; J12.82 - Pneumonia due to coronavirus disease 2019 (2) COVID-19 Status: Acute Category: Medical Code(s): U07.1 - COVID-19 (3) Diabetic ketoacidosis Status: Resolved Category: Medical Code(s): E11.10 - Type 2 diabetes mellitus with ketoacidosis without coma (4) Obesity (BMI 30.0-34.9) Status: Acute Category: Medical Code(s): E66.9 - Obesity, unspecified (5) Respiratory failure with hypoxia Status: Acute Qualifiers: Chronicity: acute Qualified Code(s): J96.01 - Acute respiratory failure with hypoxia Category: Medical Code(s): J96.91 - Respiratory failure, unspecified with hypoxia (6) Insulin dependent diabetes mellitus Status: Chronic Category: Medical (7) Essential (primary) hypertension Status: Chronic Category: Medical Code(s): I10 - Essential (primary) hypertension (8) Hyperlipidemia Status: Chronic Category: Medical Code(s): E78.5 - Hyperlipidemia, unspecified (9) Hypothyroid Status: Chronic Category: Medical Code(s): E03.9 - Hypothyroidism, unspecified - Assessment and plan all Dx Assessment and Plan for all problems:: 50-year-old female with insulin-dependent diabetes vaccinated for Covid earlier this year who presented to the ER 2 days in a row with worsening hypoxemic respiratory failure. Admitted for COVID-19 pneumonia, acute hypoxemic respiratory failure, hyperglycemia, DKA. Tolerated insulin drip and DKA protocol overnight very well with closure of gap. This morning still feels ill but is afebrile. Slight increase in oxygen requirement overnight. Conversant and alert on exam this morning. Problems addressed as follows: Diabetes; Uncontrolled at baseline, A1C 13 on admission -Increase lantus to 40 units tonight -Fingerstick before meals and at bedti
[2021-01-11 07:12] LABS: Alanine Aminotransferase 35 U/L (12-78); Albumin Level 3.2 g/dl (3.5-5.0); Alkaline Phosphatase 81 U/L (38-126); Anion Gap 14.4 mEq/L (5-15); Aspartate Amino Transferase 36 U/L (14-36); Bilirubin,Total 0.5 mg/dl (0.2-1.3); Blood Urea Nitrogen 18 mg/dl (7-17); Calcium 9.1 mg/dl (8.4-10.2); Carbon Dioxide 23 mmol/L (22.0-30.0); Chloride 104 mmol/L (98-107); Creatinine Clearance Estimated 128 mL/min (50-200); Estimated Glomerular Filt Rate 107 ml/min (>60); GFR (African American) 129 ML/MIN (>60); Globulin 3.1 g/dL (1.3-3.2); Glucose 385 mg/dl (74-100); Magnesium 1.7 mg/dl (1.6-2.3); Potassium 4.4 mmoL/L (3.5-5.1); Sodium 137 mmol/L (136-145); Total Protein,Serum 6.3 g/dl (6.3-8.2)
[2021-01-11 07:42] LABS: Basophils % 0.2 % (0.1-2.0); Eosinophils % 0.2 % (0.1-12.0); Hematocrit 35.2 % (37.0-47.0); Hemoglobin 10.9 g/dL (12.2-16.2); Lymphocytes # 0.7 K/mm3 (0.7-4.5); Lymphocytes % 17.3 % (10-50); Mean Corpuscular HGB Conc 31.1 g/dL (31.8-35.4); Mean Corpuscular Hemoglobin 27.7 pg (27.0-31.2); Mean Corpuscular Volume 88.9 fl (81-99); Monocytes # 0.1 K/mm3 (0.1-1.0); Monocytes % 3.1 % (1.7-9.3); Neutrophils # 3.2 K/mm3 (1.8-7.8); Neutrophils % 79.2 % (37.0-80.0); Platelet Count 214 K/mm3 (142-424); Red Blood Count 3.96 M/mm3 (4.20-5.40); Red Cell Distribution Width 14.7 % (11.5-17.5); White Blood Count 4.1 K/mm3 (4.8-10.8)
[2021-01-12] VITALS (16 sets, daily range): BP systolic 103–121; BP diastolic 50–74; PULSE 50–80; RESP 16–24; TEMP 36–37.2; O2SAT 90–97; BMI 28.3
[2021-01-12 01:18] LABS: POC Glucose,Bedside 375 (70-110)
[2021-01-12 01:18] LABS: POC Glucose,Bedside 441 (70-110)
[2021-01-12 01:21] LABS: POC Glucose,Bedside 300 (70-110)
--- NOTE | 2021-01-12 04:53 | PC.NURSE ---
Patient rested well t/o the night. Remains on 6L nasal canula and has tolerated well sats between 90-95%. Patient was reminded multiple times t/o night to keep nasal canula in nose. A&Ox 4 no c/o pain or SOA t/o night. Patient heart rate between 50-55. Call kirk within reach. Will continue to monitor.
[2021-01-12 05:21] LABS: POC Glucose,Bedside 319 (70-110)
[2021-01-12 07:45] LABS: Basophils % 0.1 % (0.1-2.0); Eosinophils % 0.1 % (0.1-12.0); Hematocrit 35.1 % (37.0-47.0); Hemoglobin 11.5 g/dL (12.2-16.2); Lymphocytes # 0.8 K/mm3 (0.7-4.5); Lymphocytes % 12.4 % (10-50); Mean Corpuscular HGB Conc 32.7 g/dL (31.8-35.4); Mean Corpuscular Hemoglobin 28.3 pg (27.0-31.2); Mean Corpuscular Volume 86.6 fl (81-99); Mean Platelet Volume 8.4 fl (7.4-10.4); Monocytes # 0.3 K/mm3 (0.1-1.0); Monocytes % 4.3 % (1.7-9.3); Neutrophils % 83.1 % (37.0-80.0); Platelet Count 267 K/mm3 (142-424); Red Blood Count 4.05 M/mm3 (4.20-5.40); Red Cell Distribution Width 14.7 % (11.5-17.5); White Blood Count 6.1 K/mm3 (4.8-10.8)
--- NOTE | 2021-01-12 07:54 | HMH.ACPN2 ---
Internal Medicine - PN: Subj *Date: 01/12/21 *Time: 07:57 Interval history: Patient remains hemodynamically stable. Had an episode of bradycardia overnight but was asymptomatic and sleeping. Tolerating wean of oxygen to 6 L. Maintaining saturations greater 90%. Afebrile. Tolerating fair p.o. intake. Glucose still riding in the 2-300s on current regimen. No nausea, vomiting, diarrhea. Diuresed well yesterday. Will hold on further diuresis today given euvolemic appearance. Reviewed labs this morning. Exam Vital signs and Labs for Last 24 Hours: Temp Pulse Resp BP Pulse Ox 97.9 F 54 L 24 103/50 L 97 01/12/21 04:00 01/12/21 04:00 01/12/21 04:00 01/12/21 04:00 01/12/21 04:00 Laboratory Results - last 24 hr 01/11/21 11:32: POC Glucose 375 H* 01/11/21 16:36: POC Glucose 441 H* 01/11/21 21:45: POC Glucose 300 H 01/12/21 05:09: POC Glucose 319 H* 01/12/21 06:50: WBC 6.1 D, RBC 4.05 L, Hgb 11.5 L, Hct 35.1 L, MCV 86.6, MCH 28.3, MCHC 32.7, RDW 14.7, Plt Count 267, MPV 8.4, Neut % (Auto) 83.1 H, Lymph % (Auto) 12.4, [place] % (Auto) 4.3, Eos % (Auto) 0.1, Baso % (Auto) 0.1, Neut # (Auto) 5.0, Lymph # (Auto) 0.8, [place] # (Auto) 0.3, Eos # (Auto) 0.0, Baso # (Auto) 0.0 I & O for Last 24 hours: Intake & Output 01/09/21 01/10/21 01/11/21 01/12/21 23:59 23:59 23:59 23:59 Intake Total 360 / 360 4113 / 4113 840 / 840 Output Total 2000 / 2500 500 / 500 Balance 360 / 360 2113 / 1613 340 / 340 Weight 72.03 kg 70.624 kg 68.039 kg Narrative: - Constitutional NAD on 6L NC, obese - *Routine HEENT Exam Head: Present: normocephalic Eye: Present: EOMI, PERRL ENT: Present: mucous membranes moist - *Routine Neck Exam Present: supple. Absent: lymphadenopathy - *Routine Respiratory Exam Present: CTA bilaterally, no crackles, rhonchi, wheezes - *Routine Cardiovascular Exam Present: RRR - *Routine Abdominal Exam Present: soft, normoactive bowel sounds. Absent: tenderness - *Routine Extremities Exam Present: edema (trace). Absent: cyanosis, clubbing - *Routine Skin Exam Present: warm. Absent: rash - *Routine Neurological Exam Present: alert, oriented X3 Assessment and Plan (1) Pneumonia due to COVID-19 virus Status: Acute Category: Medical Code(s): U07.1 - COVID-19; J12.82 - Pneumonia due to coronavirus disease 2019 (2) COVID-19 Status: Acute Category: Medical Code(s): U07.1 - COVID-19 (3) Diabetic ketoacidosis Status: Resolved Category: Medical Code(s): E11.10 - Type 2 diabetes mellitus with ketoacidosis without coma (4) Obesity (BMI 30.0-34.9) Status: Acute Category: Medical Code(s): E66.9 - Obesity, unspecified (5) Respiratory failure with hypoxia Status: Acute Qualifiers: Chronicity: acute Qualified Code(s): J96.01 - Acute respiratory failure with hypoxia Category: Medical Code(s): J96.91 - Respiratory failure, unspecified with hypoxia (6) Insulin dependent diabetes mellitus Status: Chronic Category: Medical (7) Essential (primary) hypertension Status: Chronic Category: Medical Code(s): I10 - Essential (primary) hypertension (8) Hyperlipidemia Status: Chronic Category: Medical Code(s): E78.5 - Hyperlipidemia, unspecified (9) Hypothyroid Status: Chronic Category: Medical Code(s): E03.9 - Hypothyroidism, unspecified - Assessment and plan all Dx Assessment and Plan for all problems:: 50-year-old female with insulin-dependent diabetes vaccinated for Covid earlier this year who presented to the ER 2 days in a row with worsening hypoxemic respiratory failure. Admitted for COVID-19 pneumonia, acute hypoxemic respiratory failure, hyperglycemia, DKA. Overall doing better with control of glucose on basal bolus regimen, gradually weaning oxygen requirement, tolerating good p.o. intake. Plan as follows: Diabetes; Uncontrolled at baseline, A1C 13 on admission -Increase lantus to 50 units tonight -Fingersti
[2021-01-12 07:56] LABS: Alanine Aminotransferase 28 U/L (12-78); Albumin Level 3.4 g/dl (3.5-5.0); Albumin/Globulin Ratio 1.1 (1.1-1.8); Alkaline Phosphatase 83 U/L (38-126); Anion Gap 15.3 mEq/L (5-15); Aspartate Amino Transferase 28 U/L (14-36); Bilirubin,Total 0.6 mg/dl (0.2-1.3); Blood Urea Nitrogen 17 mg/dl (7-17); Calcium 9.4 mg/dl (8.4-10.2); Carbon Dioxide 25 mmol/L (22.0-30.0); Chloride 102 mmol/L (98-107); Creatinine Clearance Estimated 123 mL/min (50-200); Estimated Glomerular Filt Rate 107 ml/min (>60); GFR (African American) 129 ML/MIN (>60); Globulin 3.1 g/dL (1.3-3.2); Glucose 343 mg/dl (74-100); Magnesium 2.1 mg/dl (1.6-2.3); Potassium 4.3 mmoL/L (3.5-5.1); Sodium 138 mmol/L (136-145); Total Protein,Serum 6.5 g/dl (6.3-8.2)
[2021-01-12 08:02] LABS: C-Reactive Protein 9.5 mg/L (0-4)
[2021-01-12 08:26] LABS: Erythrocyte Sedimentation Rate 110 mm/hr (0-20)
--- NOTE | 2021-01-12 08:49 | PC.NURSE ---
Rounded with , suggestions included removing bedside commode to encourage patient ambulation to the restroom. Adding extension tubing to oxygen. Removing cord for nonrebreather which was secured with tegaderms. Encouraging patient to ambulate to recliner. Holding metoprolol this morning. Titrate oxygen to 6liters as appropriate. All orders complete. Will continue to monitor patient.
[2021-01-12 10:59] LABS: POC Glucose,Bedside 489 (70-110)
[2021-01-12 16:23] LABS: POC Glucose,Bedside 452 (70-110)
--- NOTE | 2021-01-12 19:42 | PC.NURSE ---
Patient is alert and oriented, pleasant. NOrmal sinus throughout shift. No n/v/d. Has been hyperglycemic. Glucose levels in excess of 450 during each check, notified each time with orders received. Has eaten well. Remains on diabetic diet. Patient has been encouraged to use her Incentive spirometer throughout shift and has done well when prompted. Oxygen was able to be titrated from 8l to room air, however, she is currently satting at 89% so will increase her to 2L. Patient ambulated in room today well.
[2021-01-12 20:11] LABS: POC Glucose,Bedside 447 (70-110)
[2021-01-13] VITALS: PULSE 50
[2021-01-13 04:00] VITALS: BP 127/70; PULSE 46; PULSE 50; RESP 24; TEMP 36.9; O2SAT 88
[2021-01-13 05:00] VITALS: BMI 29.1
[2021-01-13 06:16] LABS: Basophils % 0.2 % (0.1-2.0); Eosinophils % 0.1 % (0.1-12.0); Hematocrit 37.5 % (37.0-47.0); Hemoglobin 11.8 g/dL (12.2-16.2); Lymphocytes % 12.1 % (10-50); Mean Corpuscular HGB Conc 31.5 g/dL (31.8-35.4); Mean Corpuscular Hemoglobin 27.6 pg (27.0-31.2); Mean Corpuscular Volume 87.6 fl (81-99); Mean Platelet Volume 8.5 fl (7.4-10.4); Monocytes # 0.4 K/mm3 (0.1-1.0); Monocytes % 4.4 % (1.7-9.3); Neutrophils % 83.2 % (37.0-80.0); Platelet Count 336 K/mm3 (142-424); Red Blood Count 4.29 M/mm3 (4.20-5.40); Red Cell Distribution Width 14.9 % (11.5-17.5); White Blood Count 8.4 K/mm3 (4.8-10.8)
[2021-01-13 06:28] LABS: Alanine Aminotransferase 30 U/L (12-78); Albumin Level 3.3 g/dl (3.5-5.0); Alkaline Phosphatase 75 U/L (38-126); Anion Gap 7.4 mEq/L (5-15); Aspartate Amino Transferase 35 U/L (14-36); Bilirubin,Total 0.6 mg/dl (0.2-1.3); Blood Urea Nitrogen 21 mg/dl (7-17); Calcium 9.7 mg/dl (8.4-10.2); Carbon Dioxide 28 mmol/L (22.0-30.0); Chloride 107 mmol/L (98-107); Creatinine Clearance Estimated 127 mL/min (50-200); Estimated Glomerular Filt Rate 107 ml/min (>60); GFR (African American) 129 ML/MIN (>60); Globulin 3.2 g/dL (1.3-3.2); Glucose 269 mg/dl (74-100); Potassium 4.4 mmoL/L (3.5-5.1); Sodium 138 mmol/L (136-145); Total Protein,Serum 6.5 g/dl (6.3-8.2)
[2021-01-13 06:41] VITALS: O2SAT 96
[2021-01-13 08:00] VITALS: BP 109/61; PULSE 64; PULSE 67; RESP 22; TEMP 36.9; O2SAT 93; O2SAT 95
--- NOTE | 2021-01-13 08:43 | HMH.DCSUM ---
General - General Admission date:: 01/09/21 Discharge date: 01/13/21 HPI HPI: 50-year-old white female with diabetes, who was diagnosed with COVID-19 infection on 01/03/2021. Her boyfriend was admitted to [facility] for respiratory distress a couple of days ago, but patient had been feeling fairly good until early on the morning of admission when she began to get short of air, coughing, and came to the hospital. Found to have significant hyperglycemia. Found to have significant hypoxemia. Admitted to hospital for IV therapy, oxygen support and further diagnostic testing. She reports vaccination for Covid in August of this year. Her primary care physician is in [place]. Hospital Course Hospital Course: Patient was admitted to hospital for IV fluids, remdesivir and other Covid medications as well as dexamethasone intravenously. Respiratory status plateaued and remained stable and improved throughout the hospital stay, but she was found to have DKA with positive acetone levels, and positive anion gap and sugar greater than 700. It turns out she is not been taking her insulin over the past couple of weeks because I was not eating well and also I have to do too many things to take care of other people in my family. Her diabetes was managed with basal bolus combination and was in the low 300s here on IV steroids. Over the last couple of days she has been maintained very nicely on 2 L nasal cannula and she has been eating well with much better control sugar although certainly not at goal. This morning she is reached maximal medical improvement. She will be discharged home. Plan will be as follows: 1. We will get home health for her. She is extremely weak, needs PT/OT/nursing evaluation and qualifies for home health because of her inability leave the house because of oxygen therapy and weakness. 2. Dexamethasone 4 mg daily for 3 days only to taper off. 3. She reassured me that she has all of her diabetes medication at home. She tells me that she will take it on a compliant basis. We will schedule her an appointment in our office in 4 days and she agrees to check her sugar twice daily to bring those records to the office to adjust glucose medication, which will need lots of attention as her A1c on admission to hospital is greater than 14. Objective Vital signs: Temp Pulse Resp BP Pulse Ox 98.4 F 46 L 24 127/70 95 01/13/21 04:00 01/13/21 04:00 01/13/21 04:00 01/13/21 04:00 01/13/21 08:00 no acute distress - *Routine HEENT Exam Head: Present: normocephalic Eye: Present: EOMI, PERRL ENT: Present: mucous membranes moist - *Routine Neck Exam Present: supple - *Routine Respiratory Exam Present: CTA bilaterally - *Routine Cardiovascular Exam Present: RRR - *Routine Abdominal Exam Present: soft, normoactive bowel sounds. Absent: tenderness - *Routine Extremities Exam Absent: cyanosis, clubbing, edema - *Routine Skin Exam Present: warm. Absent: rash - Detailed Eye Exam Eyelids: Bilateral normal inspection Results Labs on day of discharge: Labs from last 24 hours 01/13/21 01/13/21 01/12/21 05:39 05:39 20:04 WBC 8.4 D RBC 4.29 Hgb 11.8 L Hct 37.5 MCV 87.6 MCH 27.6 MCHC 31.5 L RDW 14.9 Plt Count 336 D MPV 8.5 Neut % (Auto) 83.2 H Lymph % (Auto) 12.1 [place] % (Auto) 4.4 Eos % (Auto) 0.1 Baso % (Auto) 0.2 Neut # (Auto) 7.0 Lymph # (Auto) 1.0 [place] # (Auto) 0.4 Eos # (Auto) 0.0 Baso # (Auto) 0.0 Sodium 138 Potassium 4.4 Chloride 107 Carbon Dioxide 28 Anion Gap 7.4 BUN 21 H Creatinine 0.60 Estimated Creat Clear 127 Estimated GFR 107 Est GFR ( Amer) 129 Glucose 269 H D POC Glucose 447 H* Calcium 9.7 Magnesium 2.0 Total Bilirubin 0.6 AST 35 ALT 30 Alkaline Phosphatase 75 Total Protein 6.5 Albumin 3.3 L Globulin 3.
--- NOTE | 2021-01-13 11:52 | SW/DCPLANNER ---
SET HOME 02 AND HOME HEALTH FOR THIS PATIENT... HER 02 WAS SET UP WITH [facility] AND A PORTABLE TANK HAS BEEN BROUGHT TO THE HOSPITAL... SHE REQUESTED [facility], IT WAS SENT IN AND SOMEONE WILL BE MAKING CONTACT WITH PATIENT PRIOR TO COMING TO HER HOME.. DISCHARGE LATER TODAY...
[2021-01-13 12:00] VITALS: BP 128/81; PULSE 77; RESP 19; TEMP 36.4; O2SAT 94
[2021-01-13 12:06] LABS: POC Glucose,Bedside 262 (70-110)
[2021-01-13 12:06] LABS: POC Glucose,Bedside 251 (70-110)
--- NOTE | 2021-01-13 12:33 | DIET.NUTRFU ---
Nutritional assessment, IP/consult completed 01/10. Pt to f/u as outpatient for DM nutrition counseling on wednesday 01/17.
== END 2021-01-13 13:47 | disposition home health service (06) | DRG 177 ==
LOC: ER 01-09 01:49 → 2ND 01-09 11:36
PROVIDERS: Internal Medicine Adolescent Medicine; Admitting Provider Internal Medicine Adolescent Medicine; Emergency Provider Emergency Medicine; PCP Family Medicine; Visit Provider Internal Medicine Adolescent Medicine
DX: U07.1 COVID-19 (principal); E11.10 Type 2 diabetes mellitus with ketoacidosis without coma; J12.82 Pneumonia due to coronavirus disease 2019; J96.01 Acute respiratory failure with hypoxia; E66.9 Obesity, unspecified; Z68.29 Body mass index [BMI] 29.0-29.9, adult; E03.9 Hypothyroidism, unspecified; E78.5 Hyperlipidemia, unspecified; I10 Essential (primary) hypertension; D64.9 Anemia, unspecified; Z79.4 Long term (current) use of insulin
CPT/HCPCS: 36415; 71045; 71275; 80048; 80053; 82009; 82803; 82947; 82962; 83036; 83735; 85025; 85651; 86140; 93005; 94640; 94760; 94761; 96365; 96375; 96376; 99284; J2405; Q9967

== ENCOUNTER 2021-08-27 09:27 | Emergency (ER) | payer BC, SELFPAY ==
[2021-08-27 09:48] VITALS: BP 138/79; PULSE 98; RESP 18; TEMP 36.6; O2SAT 98
--- NOTE | 2021-08-27 09:57 | HMH.EDUTC ---
[facility] Disposition Clinical Impression: Viral syndrome, Bronchitis Disposition: Home, Self-Care Condition on Discharge: Good Instructions: DI for Acute Bronchitis, DI for COVID-19 (Suspected or Confirmed ), Preventing the Spread of Coronavirus Discharge Instructions Additional Instructions: Drink plenty of fluids. Take tylenol or ibuprofen for pain or fever. Take the medications as directed. Follow up with your regular doctor. GO TO THE ER FOR ANY WORSENING SYMPTOMS Quarantine until you know the results of your covid-19 test. Notify your school or workplace of your results and follow their instructions regarding return to work/school. The cough medication (promethazine dm) will make you drowsy, so don't drive or operate heavy machinery after taking it. Prescriptions: Albuterol Sulfate [Albuterol Sulfate Hfa] 2 puffs IH Q6HP PRN 30 Days #1 each PRN Reason: Shortness Of Breath Transmission Status: Received by [facility] # Promethazine/Dextromethorphan [Promethazine-Dm Syrup] 5 ml PO Q6HP PRN #240 ml PRN Reason: Cough Transmission Status: Received by [facility] # Ondansetron [Zofran 4mg ODT] 4 mg PO Q8HP PRN #20 tab PRN Reason: Nausea Transmission Status: Received by [facility] # methylPREDNISolone [Medrol] 4 mg PO DIRECTED 6 Days #21 packet Transmission Status: Received by [facility] # Cefdinir [Omnicef 300mg Capsule] 300 mg PO BID #20 cap Transmission Status: Received by [facility] # Referrals: Lauren Villalobos MD [Primary Care Provider] - Forms: Work/School Release Time of Disposition: 10:39 Medical Decision Making - Medical Records Medical records reviewed: No: I reviewed the patient's medical records. - Js Inquiry Pt receiving controlled substance: No Vital Signs: 08/27/21 09:48 08/27/21 10:43 Temperature 97.9 F 97.8 F Temperature Source Oral Pulse Rate 98 H Pulse Rate [Radial] 98 H Respiratory Rate 18 18 Blood Pressure 138/79 Blood Pressure [Right Arm] 138/79 Blood Pressure Mean [Right Arm] 98 02 Sat by Pulse Oximetry 98 - Lab Data Lab results reviewed: Yes: I reviewed the patient's lab results. Lab Results 08/27/21 09:39: Chlamy pneumoniae PCR Not detected, Adenovirus (PCR) Not detected, B. pertussis DNA (PCR) Not detected, Coronavirus OC43 (PCR) Not detected, Coronavirus HKU1 (PCR) Not detected, Coronavirus 229E (PCR) Not detected, SARS-CoV-2 (PCR) Detected A, Coronavirus NL63 (PCR) Not detected, Human Metapneumovir PCR Not detected, Influenza A (H1) PCR Not detected, Influ A (H1N1/09) PCR Not detected, Influenza A (H3) PCR Not detected, Influenza Type A (PCR) Not detected, Influenza Type B (PCR) Not detected, M. pneumoniae (PCR) Not detected, Parainfluenza 1 (PCR) Not detected, Parainfluenza 2 (PCR) Not detected, Parainfluenza 3 (PCR) Not detected, Parainfluenza 4 (PCR) Not detected, RSV (PCR) Not detected, Entero/Rhino (PCR) Not detected 08/27/21 09:46: Influenza Type A Ag Negative, Influenza Type B Ag Negative [facility] HPI - General Stated complaint: cough, fever, sore throat, h/a, soa Time Seen by Provider: 08/27/21 09:57 Mode of Arrival: Ambulatory Source of Information: Patient Limitations: No Limitations Description of Symptoms (Recalled from Triage Doc. by RN): pt wants a covid test due to having symptoms. sore throat, cough, congestion, chills HEENT Symptoms (Recalled from RN notes): No Resp Symptoms (Recalled from RN notes): Yes Skin Symptoms (Recalled from RN notes): No MS Symptoms (Recalled from RN notes): No Functional Status (Recalled from RN notes): wnl - History of Present Illness Provider Complaint: She states that she has had chest congestion, low grade fever, chills, body aches and malaise since yesterday. She is concerned because she feels like she did when she had covid-19 around 6 months ago - Related Data Home Medications Medication Instr
[2021-08-27 10:13] LABS: Adenovirus,PCR Not Detected (NotDetected); Bordetella Pertussis Not Detected (NotDetected); Chlamydophila Pneumoniae, PCR Not Detected (NotDetected); Coronavirus 229E Not Detected (NotDetected); Coronavirus NL63 Not Detected (NotDetected); Coronavirus OC43 Not Detected (NotDetected); Coronovirus HKU1,PCR Not Detected (NotDetected); Human Metapneumovirus Not Detected (NotDetected); Influenza A, PCR Not Detected (NotDetected); Influenza AH1, 2009 Not Detected (NotDetected); Influenza AH1, PCR Not Detected (NotDetected); Influenza AH3,PCR Not Detected (NotDetected); Influenza B, PCR Not Detected (NotDetected); Mycoplasma Pneumoniae, PCR Not Detected (NotDetected); Parainfluenza 1, PCR Not Detected (NotDetected); Parainfluenza 2, PCR Not Detected (NotDetected); Parainfluenza 3, PCR Not Detected (NotDetected); Parainfluenza 4, PCR Not Detected (NotDetected); Respiratory Syncytial Virus Not Detected (NotDetected); Rhinovirus/Enterovirus Not Detected (NotDetected)
[2021-08-27 10:43] VITALS: BP 138/79; PULSE 98; RESP 18; TEMP 36.6
[2021-08-27 18:59] LABS: Coronavirus 19, PCR Detected (NotDetected)
[2021-08-27 19:14] LABS: UTC Influenza A Antigen Negative (Negative)
[2021-08-27 19:15] LABS: UTC Influenza B Antigen Negative (Negative)
== END 2021-08-27 10:49 | disposition home or self-care (01) ==
PROVIDERS: Emergency Provider Nurse Practitioner Family; PCP Internal Medicine
DX: J20.9 Acute bronchitis, unspecified (principal); U07.1 COVID-19
CPT/HCPCS: 87581; 87632; 87798; 87804; 99213; C9803; G0463; U0003; U0005

== ENCOUNTER 2022-04-09 18:25 | Emergency (ER) | payer BC, SELFPAY ==
[2022-04-09 18:31] VITALS: BP 157/80; PULSE 77; RESP 20; TEMP 36.7; O2SAT 98; BMI 31.7
--- NOTE | 2022-04-09 18:31 | CT_ITS ---
PROCEDURE INFORMATION: Exam: CTA Head With Contrast, Arteriography Exam date and time: 04/09/2022 6:59 PM Age: 51 years old Clinical indication: Stroke-like symptoms; Other: Right facial numbness/paresthesia; Additional info: Aphasia and right facial numbness TECHNIQUE: Imaging protocol: Computed tomographic angiography of the head with contrast. Exam focused on the arteries. 3D rendering (Not supervised by radiologist): MIP and/or 3D reconstructed images were created by the technologist. Radiation optimization: All CT scans at this facility use at least one of these dose optimization techniques: automated exposure control; mA and/or kV adjustment per patient size (includes targeted exams where dose is matched to clinical indication); or iterative reconstruction. Contrast material: ISOVUE 370; Contrast volume: 100 ml; Contrast route: INTRAVENOUS (IV); COMPARISON: CT HEAD/BRAIN WO CON 04/09/2022 6:41 PM FINDINGS: ANTERIOR CIRCULATION: Right internal carotid artery: Intracranial segment is patent with no significant stenosis. No aneurysm. Right middle cerebral artery: No occlusion or significant stenosis. No aneurysm. Right anterior cerebral artery: No occlusion or significant stenosis. No aneurysm. Left internal carotid artery: Intracranial segment is patent with no significant stenosis. No aneurysm. Left middle cerebral artery: No occlusion or significant stenosis. No aneurysm. Left anterior cerebral artery: No occlusion or significant stenosis. No aneurysm. POSTERIOR CIRCULATION: Right vertebral artery: No occlusion or significant stenosis. No aneurysm. Left vertebral artery: No occlusion or significant stenosis. No aneurysm. Basilar artery: No occlusion or significant stenosis. No aneurysm. Right posterior cerebral artery: No occlusion or significant stenosis. No aneurysm. Left posterior cerebral artery: No occlusion or significant stenosis. No aneurysm. 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 No definite mass, mass effect, or midline shift. Cerebral ventricles: No ventriculomegaly. Bones/joints: Unremarkable. No acute fracture. Soft tissues: Unremarkable. IMPRESSION: No large vessel stenosis or occlusion.
--- NOTE | 2022-04-09 18:31 | CT_ITS ---
PROCEDURE INFORMATION: Exam: CT Head Without Contrast Exam date and time: 04/09/2022 6:41 PM Age: 51 years old Clinical indication: Stroke-like symptoms; Other: Right facial numbness/paresthesia; Additional info: Aphasia and right facial numbness. History of CVA TECHNIQUE: Imaging protocol: Computed tomography of the head without contrast. Radiation optimization: All CT scans at this facility use at least one of these dose optimization techniques: automated exposure control; mA and/or kV adjustment per patient size (includes targeted exams where dose is matched to clinical indication); or iterative reconstruction. Other technique: STROKE PROTOCOL was implemented. COMPARISON: No relevant prior studies available. FINDINGS: Brain: Periventricular and subcortical small vessel ischemic changes. Mild atrophy associated. No acute hemorrhage, mass effect, midline shift, or extra-axial fluid collection. Cerebral ventricles: Old left MCA distribution infarct with encephalomalacia and ex vacuo dilatation of the left lateral ventricle. Paranasal sinuses: Visualized sinuses are unremarkable. No fluid levels. Mastoid air cells: Visualized mastoid air cells are well aerated. Bones/joints: Unremarkable. No acute fracture. Soft tissues: Unremarkable. IMPRESSION: Old left MCA distribution infarct with encephalomalacia and ex vacuo dilatation of the left lateral ventricle. ASSESSMENT: ASPECTS ([place] Stroke Program Early CT Score) is 10.
--- NOTE | 2022-04-09 18:31 | CT_ITS ---
PROCEDURE INFORMATION: Exam: CTA Neck With Contrast Exam date and time: 04/09/2022 6:59 PM Age: 51 years old Clinical indication: Stroke-like symptoms; Other: Right facial numbness/paresthesia; Additional info: Aphasia and right facial numbness TECHNIQUE: Imaging protocol: Computed tomographic angiography of the neck with contrast. 3D rendering (Not supervised by radiologist): MIP and/or 3D reconstructed images were created by the technologist. Radiation optimization: All CT scans at this facility use at least one of these dose optimization techniques: automated exposure control; mA and/or kV adjustment per patient size (includes targeted exams where dose is matched to clinical indication); or iterative reconstruction. Contrast material: ISOVUE 370; Contrast volume: 100 ml; Contrast route: INTRAVENOUS (IV); COMPARISON: CT ANGIO CHEST PE PROTOCOL 01/09/2021 12:35 AM FINDINGS: Right common carotid artery: No stenosis. No dissection or occlusion. Right internal carotid artery: No stenosis of the extracranial segment. No dissection or occlusion. Right external carotid artery: No occlusion or stenosis of the origin. Left common carotid artery: No stenosis. No dissection or occlusion. Left internal carotid artery: No stenosis of the extracranial segment. No dissection or occlusion. Left external carotid artery: No occlusion or stenosis of the origin. Right vertebral artery: No stenosis. No dissection or occlusion. Left vertebral artery: No stenosis. No dissection or occlusion. Right subclavian artery: Right subclavian artery replaced to the descending aorta. Soft tissues: Normal. No significant soft tissue swelling. Bones/joints: No acute fracture. IMPRESSION: 1. Right subclavian artery replaced to the descending aorta. 2. No hemodynamically significant extracranial cerebrovascular stenosis detected. REFERENCES: NASCET CRITERIA. The degree of stenosis in the cervical segment of the internal carotid artery is based on NASCET criteria. Normal is no stenosis. Mild is less than 50% stenosis. Moderate is 50-69% stenosis. Severe is 70% to 99% stenosis. Total occlusion is no detectable patent lumen.
--- NOTE | 2022-04-09 18:33 | HMH.EDGENADL ---
Discharge Plan Disposition Patient Disposition: Home, Self-Care Condition: Good Chief Complaint: Neuro Symptoms/Deficit Prescriptions Prescriptions: No Action ondansetron 4 MG tablet,disintegrating 4 mg PO TIDP PRN (Reason: Nausea) Qty: 10 0RF azithromycin 250 MG tablet 250 mg PO UD DOSE PK Rx Instructions: Take two (2) tablets today, then one (1) tablet days #2 thru #5 losartan 50 MG tablet 50 mg PO DAILY levothyroxine 150 MCG tablet 150 mcg PO DAILY metformin 500 MG tablet extended release 24 hr 1,000 mg PO BID apixaban 2.5 MG tablet 2.5 mg PO BID metoprolol tartrate 25 MG tablet 12.5 mg PO BID dexamethasone 4 MG tablet 4 mg PO DAILY Qty: 3 0RF methylprednisolone 4 MG tablets,dose pack 4 mg PO DIRECTED 6 Days Qty: 21 0RF promethazine-DM 120 ML syrup 5 ml PO Q6HP PRN (Reason: Cough) Qty: 240 0RF albuterol sulfate 8.5 GM HFA aerosol inhaler 2 puffs IH Q6HP PRN (Reason: Shortness Of Breath) 30 Days Qty: 1 5RF ondansetron 4 MG tablet,disintegrating 4 mg PO Q8HP PRN (Reason: Nausea) Qty: 20 0RF cefdinir 300 MG capsule 300 mg PO BID Qty: 20 0RF atorvastatin 80 MG tablet 80 mg PO HS sertraline 100 MG tablet 150 mg PO DAILY ascorbic acid (vitamin C) 500 MG tablet 500 mg PO DAILY pantoprazole 40 MG tablet,delayed release (DR/EC) 40 mg PO DAILY insulin detemir U-100 100 UNIT/ML insulin pen 55 unit SQ DAILY ferrous sulfate 142 MG tablet extended release 142 mg PO DAILY tzxefvuvec-dpsczmslsqdrt-xuqf 1 EACH capsule 1 each PO BID PRN (Reason: Migraine Headache) Referrals Follow up/Referrals: Provider,Referral, MD [Primary Care Provider] - See instructions Clinical Impressions Clinical Impression: Migraine Discharge ED Provider: Derick Tsai General Adult HPI General Chief complaint: Neuro Symptoms/Deficit Stated complaint: STROKE LIKE SYMPTOMS Time Seen by Provider: 04/09/22 18:31 Mode of Arrival: Ambulatory Source of Information: Patient Limitations: No Limitations History of Present Illness HPI narrative: This is a 51-year-old female with history of migraine disorder, factor V Leiden currently on Eliquis, CVA status with no residual deficits, diabetes, hypertension, hyperlipidemia, hypothyroidism, hypoparathyroidism (status post hyper parathyroidectomy) who is presenting with headache, aphasia, right-sided facial numbness. Patient states that for approximately 3 days, she has had a headache that is mostly right-sided. It is moderate in intensity, does not radiate, is associated with right-sided neck pain. She has not noticed any interventions that make it better. Is not photophobic, phonophobic, or associated with nausea, vomiting, vision changes, unilateral weakness, confusion. Today, she developed difficulty speaking and mild slurred speech as well as right-sided facial numbness. Because of this, she came to the ED for further evaluation. Related Data Home Medications Medication Instructions Recorded Confirmed ascorbic acid (vitamin C) 500 mg 500 mg PO DAILY Supplement 01/14/20 01/08/21 tablet atorvastatin 80 mg tablet 80 mg PO HS Cholesterol 01/14/20 01/08/21 [id number]-ovzdhaptfrrlf-pjsdwvxx 1 each PO BID PRN Migraine Headache 01/14/20 01/09/21 50 mg-300 mg-40 mg capsule ferrous sulfate 142 mg (45 mg 142 mg PO DAILY Supplement 01/14/20 01/08/21 iron) tablet,extended release insulin detemir U-100 100 unit/mL 55 unit SQ DAILY Diabetes 01/14/20 01/08/21 (3 mL) subcutaneous pen pantoprazole 40 mg tablet,delayed 40 mg PO DAILY GERD 01/14/20 01/08/21 release sertraline 100 mg tablet 150 mg PO DAILY Depression 01/14/20 01/08/21 azithromycin 250 mg tablet 250 mg PO UD DOSE PK Infection 01/08/21 01/08/21 apixaban 2.5 mg tablet 2.5 mg PO BID Blood thinner 01/09/21 01/09/21 levothyroxine 150 mcg tablet 150 mcg PO DAILY hypothyroidism 01/09/21 01/09/21 losartan 50 m
--- NOTE | 2022-04-09 18:37 | PC.NURSE ---
patient to CT via stretcher with instructional technology instructor
[2022-04-09 18:42] LABS: Basophils # 0.1 K/mm3 (0-0.2); Basophils % 1.1 % (0.1-2.0); Chloride 100 mmol/L (98-107); Eosinophils # 0.1 K/mm3 (0.0-0.4); Eosinophils % 1.3 % (0.1-12.0); Hemoglobin 13.6 g/dL (12.2-16.2); Lymphocytes # 2.4 K/mm3 (0.7-4.5); Lymphocytes % 25.6 % (10-50); Mean Corpuscular HGB Conc 33.1 g/dL (31.8-35.4); Mean Corpuscular Hemoglobin 28.8 pg (27.0-31.2); Mean Corpuscular Volume 87.1 fl (81-99); Mean Platelet Volume 7.1 fl (7.4-10.4); Monocytes # 0.3 K/mm3 (0.1-1.0); Monocytes % 3.5 % (1.7-9.3); Neutrophils # 6.5 K/mm3 (1.8-7.8); Neutrophils % 68.4 % (37.0-80.0); Platelet Count 290 K/mm3 (142-424); Red Blood Count 4.71 M/mm3 (4.20-5.40); Red Cell Distribution Width 15.5 % (11.5-17.5); Sodium 135 mmol/L (136-145); White Blood Count 9.5 K/mm3 (4.8-10.8)
[2022-04-09 18:45] LABS: Blood Urea Nitrogen 10 mg/dl (7-17); Calcium 9.5 mg/dl (8.4-10.2); Carbon Dioxide 25 mmol/L (22.0-30.0); Creatinine Clearance Estimated 117 mL/min (50-200); Estimated Glomerular Filt Rate 89 ml/min (>60); GFR (African American) 108 ML/MIN (>60); Glucose 224 mg/dl (74-100)
--- NOTE | 2022-04-09 19:11 | ECG_ITS ---
APPROVED REPORT Exam: Resting ECG HR:73 bpm ECG Measurements Heart Rate 73 AXES DE 180 P 24 QRSd 102 QRS -16 QT 404 T 37 QTc 430 Conclusion SINUS RHYTHM INCOMPLETE RIGHT BUNDLE BRANCH BLOCK [90+ ms QRS DURATION, TERMINAL R IN V1/V2, 40+ ms S IN I/aVL/V4/V5/V6] BORDERLINE ECG UNCONFIRMED REPORT Electronically signed by : Stephen Vasques MD 04/10/2022 09:46:43
[2022-04-09 20:08] VITALS: BP 150/80; PULSE 70; RESP 18; TEMP 36.6; O2SAT 98
== END 2022-04-09 20:18 | disposition home or self-care (01) ==
PROVIDERS: Emergency Provider Emergency Medicine
DX: G43.909 Migraine, unspecified, not intractable, without status migrainosus (principal); R06.02 Shortness of breath; R47.01 Aphasia; R47.81 Slurred speech; R20.2 Paresthesia of skin; R11.0 Nausea; I10 Essential (primary) hypertension; E78.5 Hyperlipidemia, unspecified; E11.9 Type 2 diabetes mellitus without complications; D68.51 Activated protein C resistance; E89.2 Postprocedural hypoparathyroidism; Z79.4 Long term (current) use of insulin; Z79.51 Long term (current) use of inhaled steroids; Z79.52 Long term (current) use of systemic steroids; Z79.84 Long term (current) use of oral hypoglycemic drugs; Z79.899 Other long term (current) drug therapy; Z88.0 Allergy status to penicillin; Z88.1 Allergy status to other antibiotic agents; Z88.3 Allergy status to other anti-infective agents; Z86.73 Personal history of transient ischemic attack (TIA), and cerebral infarction without residual deficits
CPT/HCPCS: 70450; 70496; 70498; 80048; 85025; 93005; 96361; 96374; 96375; 99285; Q9967

== ENCOUNTER 2024-04-27 12:08 | Emergency (ER) | payer BC, SELFPAY ==
[2024-04-27 12:09] VITALS: BP 161/97; PULSE 86; RESP 18; TEMP 36.7; O2SAT 98; BMI 30.4
--- NOTE | 2024-04-27 12:14 | ED_ITS ---
<Statement entered by Sharon eMier MD - 04/27/24 13:32> I was consulted by the FANY, and we discussed the complexity of problems being addressed. I approved the treatment and management plan for this patient's care in the emergency department, thus performing a substantive portion of the medical decision making. Sharon Meier MD Discharge Plan Disposition Patient Disposition: Home, Self-Care Condition: Good Prescriptions Prescriptions: New sulfamethoxazole-trimethoprim [Bactrim DS] 800-160 mg tablet 1 tab PO BID 10 Days Qty: 20 0RF No Action Levemir U-100 Insulin 100 unit/mL solution 55 unit SQ BID Patient Comments: ADMINISTER 50 UNITS UNDER THE SKIN TWICE DAILY levothyroxine 175 mcg tablet 175 mcg PO DAILY Januvia 100 mg tablet 100 mg PO DAILY Patient Comments: TAKE 1 TABLET BY MOUTH DAILY latanoprost 0.005 % drops 1 drp Eye-Both HS Patient Comments: INSTILL 1 DROP IN BOTH EYES AT BEDTIME amitriptyline 50 mg tablet 50 mg PO HS Patient Comments: TAKE 1 TABLET BY MOUTH AT BEDTIME Fiasp FlexTouch U-100 Insulin 100 unit/mL (3 mL) insulin pen 10 unit SQ BID methylprednisolone [Medrol (Frederic)] 4 mg tablets,dose pack See Rx Instructions PO PER PKG DIR Qty: 21 0RF Rx Instructions: PO PER PKG DIR hydroxyzine HCl 25 mg tablet 25 mg PO TID PRN (Reason: itching) Qty: 30 0RF ondansetron 4 MG tablet,disintegrating 4 mg PO TIDP PRN (Reason: Nausea) Qty: 10 0RF losartan 50 MG tablet 50 mg PO DAILY metformin 500 MG tablet extended release 24 hr 1,000 mg PO BID apixaban 2.5 MG tablet 2.5 mg PO BID metoprolol tartrate 25 mg tablet 25 mg PO BID albuterol sulfate 8.5 GM HFA aerosol inhaler 2 puffs IH Q6HP PRN (Reason: Shortness Of Breath) 30 Days Qty: 1 5RF atorvastatin 80 MG tablet 80 mg PO HS sertraline 100 MG tablet 150 mg PO DAILY ascorbic acid (vitamin C) 500 MG tablet 500 mg PO DAILY hvpfjehjsq-duocbidmruvsy-uifi 1 EACH capsule 1 each PO BID PRN (Reason: Migraine Headache) Referrals Follow up/Referrals: Provider,Referral, [Referring] - See instructions Activity Restrictions/Add. Instructions Additional Instructions/Restrictions: Please avoid picking or scratching the area. Please utilize warm compresses warm showers. Follow-up with your PCP for recheck within 48 hours. Return to the ER for any worsening signs or symptoms including pain fever drainage etc. Clinical Impressions Clinical Impression: Cellulitis of head or scalp, Hyperglycemia due to type 2 diabetes mellitus Instructions Patient Instructions: DI for Cellulitis -- Adult Print Language Print Language: Italian Discharge ED Provider: Sharon Meier General Adult HPI General Chief complaint: Skin/Abscess/Foreign Body Stated complaint: severe headache blood sugar 500 Time Seen by Provider: 04/27/24 12:10 History of Present Illness HPI narrative: Patient presents for left-sided headache and high blood sugar. Patient states that she has been out of her long-acting insulin for over a week but has been taking short acting. Patient also reports that she has had a primarily left- sided headache for 2 to 3 days that will not get better. She does have a history of a hemorrhagic stroke on that side as well as a history of migraines since her stroke. She denies any neurologic symptoms denies any trauma. She denies any fever chills hemoptysis hematochezia melena nausea vomit diarrhea. She denies any close sick contacts. Related Data Home Medications ?Medication ?Instructions ?Recorded ?Confirmed ascorbic acid (vitamin C) 500 mg 500 mg PO DAILY Supplement 01/14/20 12/09/22 tablet atorvastatin 80 mg tablet 80 mg PO HS Cholesterol 01/14/20 12/09/22 labozspqeg-vyivdtirpquxf-lqowcrky 1 each PO BID PRN Migraine Headache 01/14/20 12/09/22 50 mg-300 mg-40 mg capsule sertraline 100 mg tablet 150 mg PO DAILY Depression 01/14/20 12/09/22 apixaban 2.5 mg tablet 2.5 mg PO BID Blood thinner 01/09/21 12/09/22 losartan 50 mg tablet 50 mg PO DAILY Hypertension 01/09/21 12/09/22 metformin 500 mg tablet,extended 1,000 mg PO BID Diabetes 01/09/21 12/09/22 release 24 hr amitriptyline 50 mg tablet 50 mg PO HS 12/09/22 12/09/22 insulin aspart 10 unit SQ BID 12/09/22 12/09/22 (niacinamide)(U-100) 100 unit/mL(3 mL) subcutaneous pen (Fiasp FlexTouch U-100 Insulin) insulin detemir U-100 100 unit/mL 55 unit SQ BID 12/09/22 12/09/22 subcutaneous solution (Levemir U-100 Insulin) latanoprost 0.005 % eye drops 1 drp Eye-Both HS 12/09/22 12/09/22 levothyroxine 175 mcg tablet 175 mcg PO DAILY 12/09/22 12/09/22 metoprolol tartrate 25 mg tablet 25 mg PO BID [facility] 12/09/22 12/09/22 sitagliptin phosphate 100 mg 100 mg PO DAILY 12/09/22 12/09/22 tablet (Januvia) Previous Rx's ?Medication ?Instructions ?Recorded ondansetron 4 mg disintegrating 4 mg PO TIDP PRN Nausea #10 tabs 01/07/21 tablet albuterol sulfate 90 mcg/actuation 2 puffs inhalation Q6HP PRN 08/27/21 aerosol inhaler Shortness Of Breath 30 days #1 ea hydroxyzine HCl 25 mg tablet 25 mg PO TID PRN itching #30 tabs 12/09/22 methylprednisolone 4 mg tablets in See Rx Instructions PO PER PKG DIR 12/09/22 a dose pack (Medrol (Frederic)) #21 tabs sulfamethoxazole 800 1 tab PO BID 10 days #20 tabs 04/27/24 mg-trimethoprim 160 mg tablet (Bactrim DS) Allergies Allergy/AdvReac Type Severity Reaction Status Date / Time Penicillins Allergy Unknown Verified 12/09/22 11:50 azithromycin Allergy Verified 12/09/22 11:50 [facility] Disclaimer: The information contained in this section may have been updated after the patient was seen, as this information can be updated by other users. 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 current occupational exposures/hazards: Yes caffeine: Yes Have you lived/traveled outside [place] in past 30 days?: No Contact w/someone who lives/traveled outside US past 30 days?: No Exposure to someone with infectious disease in past 14 days?: No Do you have a fever (greater than 100.4 F or 38 C)?: No Have you tested positive for COVID-19: No Exposed to someone with COVID-19 in past 14 days?: No Do you have a sore throat?: No Do you have a cough?: No Do you have any weakness?: No Do you have any diarrhea?: No Are you experiencing any unusual bleeding?: No Do you have any muscle aches/pain?: No Do you have any abdominal pain?: No Are you experiencing loss of taste or smell?: No Other Medical History Have you received the Flu Vaccine for this season: No Have you received the Pneumonia Vaccine: No ROS Obtained: Yes Systems reviewed as appropriate & no additional complaints except as documented Physical Exam General General appearance: alert and in no apparent distress Respiratory Respiratory exam: Present normal lung sounds bilaterally Cardiovascular Cardiovascular exam: Present regular rate Neurological Exam Neurological exam: Present alert and oriented X3 Medical Decision Making Medical Records Medical records reviewed: Yes I reviewed the patient's medical records. Screening: Per USPSTF and CDC recommendations, given the prevalence of disease in our region, it is our hospital?s policy to screen for HIV and viral Hepatitis for all patients aged 18 and over and those with ongoing risk factors. Js Inquiry Pt receiving controlled substance: No Vital Signs: 04/27/24 12:09 04/27/24 12:15 04/27/24 12:32 Temperature 98.0 F Temperature Source Oral Pulse Rate 95 H 95 H Pulse Rate [Radial] 86 Respiratory Rate 18 Blood Pressure 161/97 H 141/85 H Blood Pressure [Right Arm] 161/97 H Blood Pressure Mean [Right Arm] 118 Blood Pressure Source [Right Arm] Automatic Cuff Blood Pressure Position [Right Arm] Sitting 02 Sat by Pulse Oximetry 98 100 99 Oxygen Delivery Method Room Air Room Air Room Air 04/27/24 13:00 Temperature Temperature Source Pulse Rate 86 Pulse Rate [Radial] Respiratory Rate Blood Pressure 126/78 Blood Pressure [Right Arm] Blood Pressure Mean [Right Arm] Blood Pressure Source [Right Arm] Blood Pressure Position [Right Arm] 02 Sat by Pulse Oximetry 97 Oxygen Delivery Method Room Air Lab Data Lab results reviewed: Yes I reviewed the patient's lab results. Lab Results 04/27/24 12:17: WBC 8.4, RBC 4.74, Hgb 13.3, Hct 39.1, MCV 82.5, MCH 28.1, MCHC 34.0, RDW 14.4, Plt Count 156, MPV 10.0, Neut % (Auto) 72.1, Lymph % (Auto) 23.6, Hayes % (Auto) 2.3, Eos % (Auto) 1.4, Baso % (Auto) 0.2, Neut # (Auto) 6.0, Lymph # (Auto) 2.0, Hayes # (Auto) 0.2, Eos # (Auto) 0.1, Baso # (Auto) 0.0, S odium 135 L, Potassium 4.6, Chloride 97 L, Carbon Dioxide 26, Anion Gap 16.6 H, BUN 18 H, Creatinine 0.90, Estimated Creat Clear 85, Estimated GFR 66, Est GFR ( Amer) 80, Glucose 385 H, Calcium 9.9, Magnesium 1.4 L, Total Bilirubin 0.8, AST 26, ALT 28, Alkaline Phosphatase 101, Total Protein 8.1, Albumin 4.9, Globulin 3.2, Albumin/Globulin Ratio 1.5, Acetone Level None detected 04/27/24 12:17 04/27/24 12:17 Orders (Tests/Meds): ED MEDICATIONS Generic Name Dose Route Start Last Admin Trade Name Freq PRN Reason Stop Dose Admin Insulin Human Lispro 20 unit 04/27/24 13:21 Humalog 100 Units/Ml 10ml Vial ([facility]) SUBCUT 04/27/24 13:22 ONCE ONE Magnesium Oxide 800 mg 04/27/24 13:21 Magnesium Oxide 400mg Tablet PO 04/27/24 13:22 ONCE ONE Discontinued Medications Generic Name Dose Route Start Last Admin Trade Name Freq PRN Reason Stop Dose Admin Acetaminophen 1,000 mg 04/27/24 12:17 04/27/24 12:28 Acetaminophen 500mg Tab PO 04/27/24 12:18 1,000 mg ONCE ONE Administration Ketorolac Tromethamine 15 mg 04/27/24 12:17 04/27/24 12:28 Ketorolac 30mg/Ml Vial IV 04/27/24 12:18 15 mg ONCE ONE Administration Trimethoprim/Sulfamethoxazole 1 each 04/27/24 12:50 04/27/24 13:03 Sulfa/Trimethoprim 1 Tablet PO 04/27/24 12:51 1 each ONCE ONE Administration Trimethoprim/Sulfamethoxazole 1 each 04/27/24 12:55 04/27/24 13:01 Sulfa/Trimethoprim 1 Tablet PO 04/27/24 12:56 Not Given ONCE ONE ORDERS Category Date Time Status POCUS Point of Care (ER Only) Stat Exams 04/27/24 12:21 Ordered Acetone, Serum (Rapid) Stat Lab 04/27/24 12:17 Completed CBC w/Auto Diff [Complete Blood Count Auto Diff] Stat Lab 04/27/24 12:17 Completed CMP [Comprehensive Metabolic Panel] Stat Lab 04/27/24 12:17 Completed Hemoglobin A1C Stat Lab 04/27/24 12:17 Received Magnesium Stat Lab 04/27/24 12:17 Completed Medical Decision Narrative: In summary patient is a 53-year-old female who presents to the emergency department for evaluation of headache and high blood sugar. Patient is hemodynamically stable upon arrival, afebrile. Physical exam reveals a proximately 2-1/2 to 3 cm area of scab at the apex of the scalp primarily on the left side that is indurated and swollen and tender to palpation. Patient then admitted to picking her scalp. She has other areas of scab throughout her scalp and on her obviously infected. Cranial nerves II through XII are intact grossly to exam patient is awake alert and oriented person place and circumstance patient has no focal neurologic deficits. She has no C-spine tenderness. She has no photophobia. Breath sounds are clear and equal bilaterally to the bases abdomen soft nontender.. Differential diagnosis includes sepsis versus cellulitis versus abscess of the scalp versus DKA etc. Initial workup will be conducted with hematologic labs POCUS. Initial interventions include Tylenol Toradol for now. Initial workup reviewed by nj POCUS shows no drainable fluid collection, and her hematologic labs show normal white count with left shift sodium 175 potassium 4.6 chloride 97 CO2 of 26 gap of 16.6 BUN of 18 creatinine of 0.9 with a GFR of 66 serum glucose of 385 magnesium of 1.4 and undetectable acetone and the remainder of her hematologic labs are nonactionable. Upon repeat evaluation reported that her headache was some better. Given this patient is appropriate for discharge with instructions on wound care for her cellulitis and to continue checking her blood sugar 3 times a day and utilizing her sliding scale until her long-acting comes in. She has follow-up with her PCP within 48 hours for recheck and given strict return precautions. Critical Care Critical Care Time Critical Care Time: No
[2024-04-27 12:15] VITALS: BP 161/97; PULSE 95; O2SAT 100
[2024-04-27] MEDS: ACETAMINOPHEN 500MG TAB 1000 MG PO (12:28)
[2024-04-27] MEDS: KETOROLAC 30MG/ML VIAL 15 MG IV (12:28)
[2024-04-27 12:32] VITALS: BP 141/85; PULSE 95; O2SAT 99
[2024-04-27 12:44] LABS: Albumin Level 4.9 g/dl (3.5-5.0); Chloride 97 mmol/L (98-107); Potassium 4.6 mmoL/L (3.5-5.1); Sodium 135 mmol/L (136-145)
[2024-04-27 12:45] LABS: Basophils % 0.2 % (0.1-2.0); Eosinophils # 0.1 K/mm3 (0.0-0.4); Eosinophils % 1.4 % (0.1-12.0); Hematocrit 39.1 % (37.0-47.0); Hemoglobin 13.3 g/dL (12.2-16.2); Lymphocytes % 23.6 % (10-50); Mean Corpuscular Hemoglobin 28.1 pg (27.0-31.2); Mean Corpuscular Volume 82.5 fl (81-99); Monocytes # 0.2 K/mm3 (0.1-1.0); Monocytes % 2.3 % (1.7-9.3); Neutrophils % 72.1 % (37.0-80.0); Platelet Count 156 K/mm3 (142-424); Red Blood Count 4.74 M/mm3 (4.20-5.40); Red Cell Distribution Width 14.4 % (11.5-17.5); White Blood Count 8.4 K/mm3 (4.8-10.8)
[2024-04-27 12:47] LABS: Alanine Aminotransferase 28 U/L (12-78); Albumin/Globulin Ratio 1.5 (1.1-1.8); Alkaline Phosphatase 101 U/L (38-126); Anion Gap 16.6 mEq/L (5-15); Aspartate Amino Transferase 26 U/L (14-36); Bilirubin,Total 0.8 mg/dl (0.2-1.3); Blood Urea Nitrogen 18 mg/dl (7-17); Carbon Dioxide 26 mmol/L (22.0-30.0); Creatinine Clearance Estimated 85 mL/min (50-200); Estimated Glomerular Filt Rate 66 ml/min (>60); GFR (African American) 80 ML/MIN (>60); Globulin 3.2 g/dL (1.3-3.2); Magnesium 1.4 mg/dl (1.6-2.3); Total Protein,Serum 8.1 g/dl (6.3-8.2)
[2024-04-27 12:48] LABS: Calcium 9.9 mg/dl (8.4-10.2); Glucose 385 mg/dl (74-100)
[2024-04-27 13:00] VITALS: BP 126/78; PULSE 86; O2SAT 97
[2024-04-27 13:03] LABS: Acetone, Serum (Rapid) None Detected (None Detect)
[2024-04-27] MEDS: SULFA/TRIMETHOPRIM 1 TABLET 1 EACH PO (13:03)
--- NOTE | 2024-04-27 13:05 | PC.NURSE ---
Pt requested staff call her , Shahid, to update him on her being at [facility] and is doing fine and not to worry . I called and left him a v/m and # to return call.
[2024-04-27 13:30] VITALS: BP 119/75; PULSE 85; O2SAT 99
[2024-04-27 13:50] VITALS: BP 139/75; PULSE 90; RESP 16; TEMP 36.8; O2SAT 97
[2024-04-27] MEDS: MAGNESIUM OXIDE 400MG TABLET 800 MG PO (14:06)
[2024-04-27] MEDS: humaLOG 100 UNITS/ML 10ML VIAL (SSI) 20 UNIT SUBCUT (14:06)
[2024-04-27 14:28] LABS: Hemoglobin A1C 9.7 % (4.0-6.0)
== END 2024-04-27 14:20 | disposition home or self-care (01) ==
PROVIDERS: Physician Assistant; Emergency Provider Student in an Organized Health Care Education/Training Program; PCP Internal Medicine
DX: E11.65 Type 2 diabetes mellitus with hyperglycemia (principal); L03.811 Cellulitis of head [any part, except face]; R51.9 Headache, unspecified; Z79.4 Long term (current) use of insulin
CPT/HCPCS: 80053; 82009; 83036; 83735; 85025; 96374; 99283; J1885

== ENCOUNTER 2024-08-28 04:13 | Emergency (ER) | payer BC, SELFPAY ==
[2024-08-28] VITALS (10 sets, daily range): BP systolic 121–145; BP diastolic 81–94; PULSE 76–100; RESP 12–21; TEMP 36.6–36.8; O2SAT 94–96; BMI 31.1
--- NOTE | 2024-08-28 04:15 | ECG_ITS ---
APPROVED REPORT Exam: Resting ECG HR:92 bpm ECG Measurements Heart Rate [address] 174 P 67 QRSd 85 QRS -56 QT 353 T 79 QTc 403 Conclusion SINUS RHYTHM LEFT AXIS DEVIATION [QRS AXIS < -30] LOW QRS VOLTAGE IN PRECORDIAL LEADS [QRS DEFLECTION < 1.0 mV IN CHEST LEADS] PATTERN CONSISTENT WITH PULMONARY DISEASE ABNORMAL ECG UNCONFIRMED REPORT Electronically signed by : DEUCE ABDULLAHI, 08/29/2024 01:45:54
--- NOTE | 2024-08-28 04:18 | XR_ITS ---
PROCEDURE INFORMATION: Exam: XR Chest Exam date and time: 08/28/2024 4:26 AM Age: 53 years old Clinical indication: Pain; Shortness of breath; Other: Cp; Additional info: Cp, SOA TECHNIQUE: Imaging protocol: Radiologic exam of the chest. Views: 1 view. COMPARISON: CT ANGIO CHEST PE PROTOCOL 01/09/2021 12:35 AM FINDINGS: Lungs: Unremarkable. No consolidation. Pleural spaces: Unremarkable. No pleural effusion. No pneumothorax. Heart/Mediastinum: Unremarkable. No cardiomegaly. Bones/joints: Unremarkable. IMPRESSION: No acute findings.
--- NOTE | 2024-08-28 04:18 | [facility].EDGENADL ---
Discharge Plan Disposition Patient Disposition: Home, Self-Care Prescriptions Prescriptions: No Action Levemir U-100 Insulin 100 unit/mL solution 55 unit SQ BID Patient Comments: ADMINISTER 50 UNITS UNDER THE SKIN TWICE DAILY levothyroxine 175 mcg tablet 175 mcg PO DAILY Januvia 100 mg tablet 100 mg PO DAILY Patient Comments: TAKE 1 TABLET BY MOUTH DAILY latanoprost 0.005 % drops 1 drp Eye-Both HS Patient Comments: INSTILL 1 DROP IN BOTH EYES AT BEDTIME amitriptyline 50 mg tablet 50 mg PO HS Patient Comments: TAKE 1 TABLET BY MOUTH AT BEDTIME Fiasp FlexTouch U-100 Insulin 100 unit/mL (3 mL) insulin pen 10 unit SQ BID methylprednisolone [Medrol (Frederic)] 4 mg tablets,dose pack See Rx Instructions PO PER PKG DIR Qty: 21 0RF Rx Instructions: PO PER PKG DIR hydroxyzine HCl 25 mg tablet 25 mg PO TID PRN (Reason: itching) Qty: 30 0RF ondansetron 4 MG tablet,disintegrating 4 mg PO TIDP PRN (Reason: Nausea) Qty: 10 0RF losartan 50 MG tablet 50 mg PO DAILY metformin 500 MG tablet extended release 24 hr 1,000 mg PO BID apixaban 2.5 MG tablet 2.5 mg PO BID metoprolol tartrate 25 mg tablet 25 mg PO BID albuterol sulfate 8.5 GM HFA aerosol inhaler 2 puffs IH Q6HP PRN (Reason: Shortness Of Breath) 30 Days Qty: 1 5RF sulfamethoxazole-trimethoprim [Bactrim DS] 800-160 mg tablet 1 tab PO BID 10 Days Qty: 20 0RF atorvastatin 80 MG tablet 80 mg PO HS sertraline 100 MG tablet 150 mg PO DAILY ascorbic acid (vitamin C) 500 MG tablet 500 mg PO DAILY [id number]-[id number]-hxaz 1 EACH capsule 1 each PO BID PRN (Reason: Migraine Headache) Referrals Follow up/Referrals: Provider,Referral, [Primary Care Provider] - See instructions Activity Restrictions/Add. Instructions Additional Instructions/Restrictions: Please follow-up with your primary care provider. Please return to the emergency department if you develop any new or worsening symptoms or become concerned for your health. Clinical Impressions Clinical Impression: Chest pain Print Language Print Language: Maltese Discharge ED Provider: Pérez Bates General Adult HPI <Kaleb Mendosa MD - Last Filed: 08/28/24 06:49> General Chief complaint: Chest Pain Stated complaint: chest pain Time Seen by Provider: 08/28/24 04:18 Mode of Arrival: Ambulatory Source of Information: Patient Description of Symptoms (Recalled from ER Triage Doc. by RN): patient c/o left sided chest pain that radiates into her shoulder. states it has been going on for a couple days but today is worse and she is unable to sleep. History of Present Illness HPI narrative: 53-year-old female with history of asthma, prior stroke with mild residual deficits presents for a few days of chest pain, mild shortness of breath. She reports that her arms have been hurting some as well. Shortness of breath is worse with exertion. Denies any fever, chills or infectious symptoms. Reports that she has some palpitations and feels like her heart is flip-flopping . Related Data Home Medications ?Medication ?Instructions ?Recorded ?Confirmed ascorbic acid (vitamin C) 500 mg 500 mg PO DAILY Supplement 01/14/20 12/09/22 tablet atorvastatin 80 mg tablet 80 mg PO HS Cholesterol 01/14/20 12/09/22 [id number]-zlokpnhqohncx-wpjacxox 1 each PO BID PRN Migraine Headache 01/14/20 12/09/22 50 mg-300 mg-40 mg capsule sertraline 100 mg tablet 150 mg PO DAILY Depression 01/14/20 12/09/22 apixaban 2.5 mg tablet 2.5 mg PO BID Blood thinner 01/09/21 12/09/22 losartan 50 mg tablet 50 mg PO DAILY Hypertension 01/09/21 12/09/22 metformin 500 mg tablet,extended 1,000 mg PO BID Diabetes 01/09/21 12/09/22 release 24 hr amitriptyline 50 mg tablet 50 mg PO HS 12/09/22 12/09/22 insulin aspart 10 unit SQ BID 12/09/22 12/09/22 (niacinamide)(U-100) 100 unit/mL(3 mL) subcutaneous pen (Fiasp FlexTouch U-100 Insulin) insulin detemir U-100 100 unit/mL 55 unit SQ BID 12/09/22 12/09/22 subcutaneous solution (Levemir U-100 Insulin) latanoprost 0.005 % eye drops 1 drp Eye-Both HS 12/09/22 12/09/22 levothyroxine 175 mcg tablet 175 mcg PO DAILY 12/09/22 12/09/22 metoprolol tartrate 25 mg tablet 25 mg PO BID HEART HEALTH 12/09/22 12/09/22 sitagliptin phosphate 100 mg 100 mg PO DAILY 12/09/22 12/09/22 tablet (Januvia) Previous Rx's ?Medication ?Instructions ?Recorded ondansetron 4 mg disintegrating 4 mg PO TIDP PRN Nausea #10 tabs 01/07/21 tablet albuterol sulfate 90 mcg/actuation 2 puffs inhalation Q6HP PRN 08/27/21 aerosol inhaler Shortness Of Breath 30 days #1 ea hydroxyzine HCl 25 mg tablet 25 mg PO TID PRN itching #30 tabs 12/09/22 methylprednisolone 4 mg tablets in See Rx Instructions PO PER PKG DIR 12/09/22 a dose pack (Medrol (Frederic)) #21 tabs sulfamethoxazole 800 1 tab PO BID 10 days #20 tabs 04/27/24 mg-trimethoprim 160 mg tablet (Bactrim DS) Allergies Allergy/AdvReac Type Severity Reaction Status Date / Time Penicillins Allergy Unknown Verified 12/09/22 11:50 azithromycin Allergy Verified 12/09/22 11:50 [facility] <Kaleb Mendosa MD - Last Filed: 08/28/24 06:49> [facility] Disclaimer: The information contained in this section may have been updated after the patient was seen, as this information can be updated by other users. 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 current occupational exposures/hazards: Yes caffeine: Yes Have you lived/traveled outside [place] in past 30 days?: No Contact w/someone who lives/traveled outside [place] past 30 days?: No Exposure to someone with infectious disease in past 14 days?: No Do you have a fever (greater than 100.4 F or 38 C)?: No Have you tested positive for COVID-19?: No Exposed to someone with COVID-19 in past 14 days?: No Do you have a sore throat?: No Do you have a cough?: No Do you have any weakness?: No Do you have any diarrhea?: No Are you experiencing any unusual bleeding?: No Do you have any muscle aches/pain?: No Do you have any abdominal pain?: No Are you experiencing loss of taste or smell?: No Other Medical History Have you received the Flu Vaccine for this season: No Have you received the Pneumonia Vaccine: No <Kaleb Mendosa MD - Last Filed: 08/28/24 06:49> ROS Obtained: Yes All systems reviewed & no additional complaints except as documented Physical Exam <Kaleb Mendosa MD - Last Filed: 08/28/24 06:49> General General appearance: alert and in no apparent distress Head Head exam: atraumatic and normocephalic Eye Eye exam: Present normal appearance, PERRL and EOMI ENT ENT exam: Present normal oropharynx and normal external ear exam Neck Neck exam: Present normal inspection and full ROM Chest Chest inspection: Present normal inspection and symmetric chest wall rise; Absent tenderness Respiratory Respiratory exam: Present normal lung sounds bilaterally; Absent respiratory distress Cardiovascular Cardiovascular exam: Present regular rate and normal rhythm Abdominal Exam Abdominal exam: Present soft; Absent distention, tenderness or guarding Extremities Exam Extremities exam: Present normal inspection; Absent edema or joint swelling Back Exam Back exam: Present normal inspection; Absent tenderness Neurological Exam Neurological exam: Present alert and oriented X3; Absent motor sensory deficit Psychiatric Psychiatric exam: Present normal affect and normal mood Skin Skin exam: Present warm, dry and normal color Lymphatic Lymphatic Findings: no adenopathy Medical Decision Making <Kaleb Mendosa MD - Last Filed: 08/28/24 06:49> Medical Records Medical records reviewed: Yes I reviewed the patient's medical records. Screening: Per USPSTF and CDC recommendations, given the prevalence of disease in our region, it is our hospital?s policy to screen for HIV and viral Hepatitis for all patients aged 18 and over and those with ongoing risk factors. Js Inquiry Pt receiving controlled substance: No Js was queried for this patient: No Vital Signs: 08/28/24 04:14 08/28/24 04:18 08/28/24 05:00 Temperature 97.9 F Temperature Source Oral Pulse Rate 100 H 78 Pulse Rate [Left] 100 H Respiratory Rate 20 20 Blood Pressure 125/85 Blood Pressure [Right Arm] 138/91 H Blood Pressure Mean [Right Arm] 106 Blood Pressure Source [Right Arm] Automatic Cuff Blood Pressure Position [Right Arm] Sitting 02 Sat by Pulse Oximetry 95 94 L Oxygen Delivery Method Room Air Room Air 08/28/24 05:30 08/28/24 06:15 08/28/24 06:30 Temperature Temperature Source Pulse Rate 82 84 76 Pulse Rate [Left] Respiratory Rate 21 17 12 Blood Pressure 121/81 139/94 H 139/91 H Blood Pressure [Right Arm] Blood Pressure Mean [Right Arm] Blood Pressure Source [Right Arm] Blood Pressure Position [Right Arm] 02 Sat by Pulse Oximetry 94 L 95 95 Oxygen Delivery Method Room Air Room Air Room Air 08/28/24 07:00 08/28/24 07:30 08/28/24 08:00 Temperature Temperature Source Pulse Rate 88 86 86 Pulse Rate [Left] Respiratory Rate 16 16 16 Blood Pressure 145/89 H 133/87 131/86 Blood Pressure [Right Arm] Blood Pressure Mean [Right Arm] Blood Pressure Source [Right Arm] Blood Pressure Position [Right Arm] 02 Sat by Pulse Oximetry 95 95 96 Oxygen Delivery Method Room Air Room Air Room Air Lab Data Lab results reviewed: Yes I reviewed the patient's lab results. Lab Results 08/28/24 04:18: WBC 11.4 H, RBC 4.68, Hgb 13.3, Hct 39.2, MCV 83.8, MCH 28.4, MCHC 33.9, RDW 14.0, Plt Count 242, MPV 9.3, Neut % (Auto) 61.7, Lymph % (Auto) 29.2, [place] % (Auto) 5.9, Eos % (Auto) 2.4, Baso % (Auto) 0.4, Neut # (Auto) 7.0, Lymph # (Auto) 3.3, [place] # (Auto) 0.7, Eos # (Auto) 0.3, Baso # (Auto) 0.0, D-Dimer 0.37, Sodium 140, Potassium 3.9, Chloride 103, Carbon Dioxide 29, Anion Gap 11.9, BUN 24 H, Creatinine 1.10 H, Estimated Creat Clear 71, Estimated GFR 52 L, Est GFR ( Amer) 63, Glucose 108 H, Calcium 10.2, Total Bilirubin 0.5, AST 25, ALT 24, Alkaline Phosphatase 58, Troponin I < 0.01, Total Protein 8.0, Albumin 5.1 H, Globulin 2.9, Albumin/Globulin Ratio 1.8 08/28/24 06:30: Troponin I < 0.01 08/28/24 04:18 08/28/24 04:18 Orders (Tests/Meds): ED MEDICATIONS Discontinued Medications Generic Name Dose Route Start Last Admin Trade Name Freq PRN Reason Stop Dose Admin Acetaminophen 1,000 mg 08/28/24 04:18 08/28/24 04:21 Acetaminophen 500mg Tab PO 08/28/24 04:19 1,000 mg ONCE ONE Administration Aspirin 324 mg 08/28/24 04:18 08/28/24 04:21 Aspirin 81mg Chewable Tablet PO 08/28/24 04:19 324 mg ONCE ONE Administration ORDERS Category Date Time Status CXR --portable [XR chest portable] Stat Exams 08/28/24 04:18 Completed CBC w/Auto Diff [Complete Blood Count Auto Diff] Stat Lab 08/28/24 04:18 Completed CMP [Comprehensive Metabolic Panel] Stat Lab 08/28/24 04:18 Completed D-Dimer Stat Lab 08/28/24 04:18 Completed Troponin I Q3H Lab 08/28/24 04:18 Completed Troponin I Q3H Lab 08/28/24 06:30 Completed ECG Data Tracing #1: I reviewed this ECG and interpreted as documented below: Sinus rhythm, rate of 92, no significant ST elevation, no evidence of arrhythmia ECG initial impression date: 08/28/24 ECG initial impression time: 04:15 HEART Score History (anamnesis): Slightly suspicious ECG: Normal Age: 45-65 years Risk factors: Atherosclerosis history Troponin: </= normal limit HEART Score: 3 Medical Decision Narrative: 53-year-old female with history of stroke, hyperlipidemia, asthma presents for a few days of intermittent palpitations, chest pain, shortness of breath. History was obtained via interactive discussion with patient, chart review. On arrival, patient is [afebrile, hemodynamically stable, satting appropriately, alert, oriented x4, GCS 15], moving all extremities spontaneously. Full physical exam performed and significant for clear lungs bilaterally, no abdominal tenderness Differential includes but is not limited to arrhythmia, ACS, PE, musculoskeletal chest pain, pleurisy, GERD pneumonia. Patient was given aspirin and Tylenol for symptomatic management and correction of underlying abnormalities. Workup initiated including CBC CMP troponin EKG chest x-ray. D-dimer obtained as we cannot PERC out due to age. On re-evaluation, patient [remains afebrile, HD stable.] Laboratory workup independently interpreted by me and significant for negative initial troponin, negative D-dimer, stable renal function. Mild leukocytosis. Imaging independently interpreted by me and significant for clear lungs bilaterally without focal opacity. See radiology read for full review of final results. Patient was placed in ED observation status for serial cardiac enzymes and cardiac monitoring. At this time care handed off to oncoming physician. <Pérez Bates MD - Last Filed: 08/28/24 08:29> Vital Signs: 08/28/24 04:14 08/28/24 04:18 08/28/24 05:00 Temperature 97.9 F Temperature Source Oral Pulse Rate 100 H 78 Pulse Rate [Left] 100 H Respiratory Rate 20 20 Blood Pressure 125/85 Blood Pressure [Right Arm] 138/91 H Blood Pressure Mean [Right Arm] 106 Blood Pressure Source [Right Arm] Automatic Cuff Blood Pressure Position [Right Arm] Sitting 02 Sat by Pulse Oximetry 95 94 L Oxygen Delivery Method Room Air Room Air 08/28/24 05:30 08/28/24 06:15 08/28/24 06:30 Temperature Temperature Source Pulse Rate 82 84 76 Pulse Rate [Left] Respiratory Rate 21 17 12 Blood Pressure 121/81 139/94 H 139/91 H Blood Pressure [Right Arm] Blood Pressure Mean [Right Arm] Blood Pressure Source [Right Arm] Blood Pressure Position [Right Arm] 02 Sat by Pulse Oximetry 94 L 95 95 Oxygen Delivery Method Room Air Room Air Room Air 08/28/24 07:00 08/28/24 07:30 08/28/24 08:00 Temperature Temperature Source Pulse Rate 88 86 86 Pulse Rate [Left] Respiratory Rate 16 16 16 Blood Pressure 145/89 H 133/87 131/86 Blood Pressure [Right Arm] Blood Pressure Mean [Right Arm] Blood Pressure Source [Right Arm] Blood Pressure Position [Right Arm] 02 Sat by Pulse Oximetry 95 95 96 Oxygen Delivery Method Room Air Room Air Room Air Lab Data Lab Results 08/28/24 04:18: WBC 11.4 H, RBC 4.68, Hgb 13.3, Hct 39.2, MCV 83.8, MCH 28.4, MCHC 33.9, RDW 14.0, Plt Count 242, MPV 9.3, Neut % (Auto) 61.7, Lymph % (Auto) 29.2, [place] % (Auto) 5.9, Eos % (Auto) 2.4, Baso % (Auto) 0.4, Neut # (Auto) 7.0, Lymph # (Auto) 3.3, [place] # (Auto) 0.7, Eos # (Auto) 0.3, Baso # (Auto) 0.0, D-Dimer 0.37, Sodium 140, Potassium 3.9, Chloride 103, Carbon Dioxide 29, Anion Gap 11.9, BUN 24 H, Creatinine 1.10 H, Estimated Creat Clear 71, Estimated GFR 52 L, Est GFR ( Amer) 63, Glucose 108 H, Calcium 10.2, Total Bilirubin 0.5, AST 25, ALT 24, Alkaline Phosphatase 58, Troponin I < 0.01, Total Protein 8.0, Albumin 5.1 H, Globulin 2.9, Albumin/Globulin Ratio 1.8 08/28/24 06:30: Troponin I < 0.01 Orders (Tests/Meds): ED MEDICATIONS Discontinued Medications Generic Name Dose Route Start Last Admin Trade Name Freq PRN Reason Stop Dose Admin Acetaminophen 1,000 mg 08/28/24 04:18 08/28/24 04:21 Acetaminophen 500mg Tab PO 08/28/24 04:19 1,000 mg ONCE ONE Administration Aspirin 324 mg 08/28/24 04:18 08/28/24 04:21 Aspirin 81mg Chewable Tablet PO 08/28/24 04:19 324 mg ONCE ONE Administration ORDERS Category Date Time Status CXR --portable [XR chest portable] Stat Exams 08/28/24 04:18 Completed CBC w/Auto Diff [Complete Blood Count Auto Diff] Stat Lab 08/28/24 04:18 Completed CMP [Comprehensive Metabolic Panel] Stat Lab 08/28/24 04:18 Completed D-Dimer Stat Lab 08/28/24 04:18 Completed Troponin I Q3H Lab 08/28/24 04:18 Completed Troponin I Q3H Lab 08/28/24 06:30 Completed HEART Score HEART Score: 3 Medical Decision Narrative: 53-year-old female with history of stroke, hyperlipidemia, asthma presents for a few days of intermittent palpitations, chest pain, shortness of breath. History was obtained via interactive discussion with patient, chart review. On arrival, patient is [afebrile, hemodynamically stable, satting appropriately, alert, oriented x4, GCS 15], moving all extremities spontaneously. Full physical exam performed and significant for clear lungs bilaterally, no abdominal tenderness Differential includes but is not limited to arrhythmia, ACS, PE, musculoskeletal chest pain, pleurisy, GERD pneumonia. Patient was given aspirin and Tylenol for symptomatic management and correction of underlying abnormalities. Workup initiated including CBC CMP troponin EKG chest x-ray. D-dimer obtained as we cannot PERC out due to age. On re-evaluation, patient [remains afebrile, HD stable.] Laboratory workup independently interpreted by me and significant for negative initial troponin, negative D-dimer, stable renal function. Mild leukocytosis. Imaging independently interpreted by me and significant for clear lungs bilaterally without focal opacity. See radiology read for full review of final results. Patient was placed in ED observation status for serial cardiac enzymes and cardiac monitoring. At this time care handed off to oncoming physician. Pérez Bates MD I assumed care of this patient at 0654 with plan for repeat troponin. Patient's repeat troponin also less than 0.01. At this time, patient was reassessed. She reports that she does not currently have any symptoms but she was sleeping comfortably on my presentation to the room. Is felt that she is appropriate for discharge at this time with plan to follow-up with her primary care physician. Return precautions were given. All questions were answered. She demonstrated understanding and was in agreement with this plan. She was then discharged from the emergency department in stable condition. Procedures <Kaleb Mendosa MD - Last Filed: 08/28/24 06:49> Risk/Benefits of Procedure(s) Were Explained: Yes Critical Care <Kaleb Mendosa MD - Last Filed: 08/28/24 06:49> Critical Care Time Critical Care Time: No
[2024-08-28] MEDS: ASPIRIN 81MG CHEWABLE TABLET 324 MG PO (04:21)
[2024-08-28] MEDS: ACETAMINOPHEN 500MG TAB 1000 MG PO (04:21)
[2024-08-28 04:26] LABS: Basophils % 0.4 % (0.1-2.0); Eosinophils # 0.3 Kmm3 (0.0-0.4); Eosinophils % 2.4 % (0.1-12.0); Hematocrit 39.2 % (37.0-47.0); Hemoglobin 13.3 g/dL (12.2-16.2); Immature Granulocytes # 0.05 10^3uL; Immature Granulocytes % 0.4 %; Lymphocytes # 3.3 K/mm3 (0.7-4.5); Lymphocytes % 29.2 % (10-50); Mean Corpuscular HGB Conc 33.9 g/dL (31.8-35.4); Mean Corpuscular Hemoglobin 28.4 pg (27.0-31.2); Mean Corpuscular Volume 83.8 fl (81-99); Mean Platelet Volume 9.3 fl (7.4-10.4); Monocytes # 0.7 K/mm3 (0.1-1.0); Monocytes % 5.9 % (1.7-9.3); Neutrophils % 61.7 % (37.0-80.0); Nucleated Red Blood Cells # 0 10^3/uL; Nucleated Red Blood Cells % 0 %; Platelet Count 242 K/mm3 (142-424); Red Blood Count 4.68 M/mm3 (4.20-5.40); Red Cell Distribution Width-SD 42.6 fL; White Blood Count 11.4 K/mm3 (4.8-10.8)
[2024-08-28 04:33] LABS: Alanine Aminotransferase 24 U/L (12-78); Albumin Level 5.1 g/dl (3.5-5.0); Albumin/Globulin Ratio 1.8 (1.1-1.8); Alkaline Phosphatase 58 U/L (38-126); Anion Gap 11.9 mEq/L (5-15); Aspartate Amino Transferase 25 U/L (14-36); Bilirubin,Total 0.5 mg/dl (0.2-1.3); Blood Urea Nitrogen 24 mg/dl (7-17); Calcium 10.2 mg/dl (8.4-10.2); Carbon Dioxide 29 mmol/L (22.0-30.0); Chloride 103 mmol/L (98-107); Creatinine Clearance Estimated 71 mL/min (50-200); Estimated Glomerular Filt Rate 52 ml/min (>60); GFR (African American) 63 ML/MIN (>60); Globulin 2.9 g/dL (1.3-3.2); Glucose 108 mg/dl (74-100); Potassium 3.9 mmoL/L (3.5-5.1); Sodium 140 mmol/L (136-145)
[2024-08-28 04:38] LABS: D-Dimer 0.37 ug/mL (0.0-0.5)
[2024-08-28 04:46] LABS: Troponin I < 0.01 ng/ml (0.00-0.034)
--- NOTE | 2024-08-28 06:30 | PC.NURSE ---
2nd trop drawn and sent to the lab at this time.
--- NOTE | 2024-08-28 07:05 | PC.NURSE ---
ROUNDED ON PT, UPDATED ON POC. NO NEEDS AT THIS TIME. CALL LIGHT WITHIN REACH
[2024-08-28 07:38] LABS: Troponin I < 0.01 ng/ml (0.00-0.034)
--- NOTE | 2024-08-28 08:27 | PC.NURSE ---
DR MONREAL AT BEDSIDE TO UPDATE PT
== END 2024-08-28 08:37 | disposition home or self-care (01) ==
PROVIDERS: Emergency Medicine; Emergency Provider Student in an Organized Health Care Education/Training Program
DX: R07.89 Other chest pain (principal); I10 Essential (primary) hypertension; E78.5 Hyperlipidemia, unspecified; Z86.73 Personal history of transient ischemic attack (TIA), and cerebral infarction without residual deficits
CPT/HCPCS: 71045; 80053; 84484; 85025; 85378; 93005; 99284

== ENCOUNTER 2025-02-22 19:13 | Emergency (ER) | payer SELFPAY ==
--- OUTSIDE RECORDS SUMMARY | 2025-01-09 10:30 | XMS_ITS | Encounter Summary ---
[facility] Address [address] [place] [address] Care Team Providers Care Special Effects Specialist Name Role Phone Lauren Villalobos MD Primary Care Provider [phone] Encounter Details Date Type Department Care Team (Late st Contact Info) Description 01/09/2025 11:30 AM EDT Office Visit [facility] HEMATOLOGY & ONCOLOGY [address] [facility] [address] [place] [address] Usha Bocanegra, ENGINEERING FACULTY MEMBER [address] [facility] [address] [place] [address] Cerebral venous sinus thrombosis, associated with thrombophilia, acute (Primary Dx); Factor V Leiden; Normocytic anemia Social History Tobacco Use Types Packs/Day Years Used Date Smoking Tobacco: Never Smokeless Tobacco: Never Tobacco Cessation:Counseling Given: Not Answered Alcohol Use Standard Drinks/Week Comments Yes 0 (1 standard drink = 0.6 oz pur e alcohol) rarely PHQ-2 Answer Date Recorded Retired PHQ-9: Brief Depression Severity Measure Score 0 05/01/2022 PHQ-2 Answer Date Recorded Patient Health Questionnaire-2 Score 0 01/09/2025 Comments No Sex and Gender Information Value Date Recorded Sex Assigned at Not on file Legal Sex Female 10:45 AM EDT Gender Identity Not on file Sexual Orientation Not on file documented as of this encounter Last Filed Vital Signs Vital Sign Reading Time Taken Comments Blood Pressure 137/67 01/09/2025 11:35 AM EDT Pulse 94 01/09/2025 11:35 AM EDT Temperature 36.4 C (97.5 F) 01/09/2025 11:35 AM EDT Respiratory Rate 18 01/09/2025 11:35 AM EDT Oxygen Saturation 98% 01/09/2025 11:35 AM EDT Inhaled Oxygen Concentration - - Weight 79.4 kg (175 lb) 01/09/2025 11:35 AM EDT Height 152.4 cm (5') 01/09/2025 11:35 AM EDT Body Mass Index 34.18 01/09/2025 11:35 AM EDT documented in this encounter Functional Status documented as of this encounter Progress Notes * Usha Bocanegra, ENGINEERING FACULTY MEMBER - 01/09/2025 11:30 AM EDT DATE OF VISIT: 01/09/2025 REASON FOR VISIT: Followup for hypercoagulable state PROBLEM LIST: 1. Left transverse sinus thrombosis: A. Presented with hemorrhagic stroke July 2019 B. Thrombophilia work-up confirmed heterozygous factor V Leiden C. Currently on Eliquis 2.5 mg twice daily 2. Depression 3. Type 2 diabetes 4. Hypertension 5. Hypercholesterolemia 6. Hypothyroid HISTORY OF PRESENT ILLNESS: The patient is a very pleasant 54 y.o. female with past medical history significant for left transverse sinus thrombosis diagnosed July 2019. The patient is on chronic anticoagulation with Eliquis 2.5 mg twice daily. The patient is here today for scheduled follow-up visit. SUBJECTIVE: The patient is here today with her daughter. She has been doing well since her last visit. She was told by her PCP that her iron level was low. She has previously tried oral iron replacement, but she notes it was not effective. She has been compliant with use of Eliquis. She denies any change in stool color or evidence of bleeding. Past History: Medical History: has a past medical history of Asthma, Depression, Diabetes mellitus, Disease of thyroid gland, Diverticulitis, Factor V Leiden (05/04/2023), Fibromyalgia, Lyssa's thyroiditis, History of transfusion (01/2020), Hyperlipidemia, Hyperparathyroidism (2 years ago), Hypertension, Hypoglycemia (Teenager), Hypothyroidism (10/21/1995), IBS (irritable bowel syndrome), Injury of back, Insomnia, Stomach ulcer, Stroke (07/2019), Type 2 diabetes mellitus (Age 35), Vitamin D deficiency, and Wears glasses. Surgical History: has a past surgical history that includes Tubal ligation; Back surgery; Hysterectomy (01/2020); Esophagogastroduodenoscopy; Colonoscopy; and Parathyroidectomy (N/A, 09/26/2021). Family History: family history includes Cancer in her maternal aunt, maternal aunt, and mother; Colon cancer (age of onset: 66) in her mother; Diabetes in her mother and sister; Heart failure in her sister; Hypertension in her father; Obesity in her mother; Stroke in her father. Social History: reports that she has never smoked. She has never used smokeless tobacco. She reports current alcohol use. She reports that she does not use drugs. (Not in a hospital admission) Allergies: Erythromycin and Penicillins Review of Systems Constitutional: Positive for fatigue. Musculoskeletal: Positive for arthralgias. PHYSICAL EXAMINATION: BP 137/67 Pulse 94 Temp 97.5 ??F (36.4 ??C) Resp 18 Ht 152.4 cm (60 ) Wt 79.4 kg (175 lb) LMP (LMP Unknown) SpO2 98% BMI 34.18 kg/m?? Pain Score 01/09/25 1135 PainSc: 0-No pain ECOG score: 0 ECOG Performance Status: 0 - Asymptomatic General Appearance: alert, cooperative, no apparent distress and appears stated age Lungs: Clear to auscultation bilaterally; respirations regular, even, and unlabored bilaterally Heart: Regular rate and rhythm, no murmurs appreciated Abdomen: Soft, non-tender, non-distended, and no organomegaly Lab on 01/09/2025 Component Date Value Ref Range Status WBC 01/09/2025 7.54 3.40 - 10.80 10*3/mm3 Final RBC 01/09/2025 4.24 3.77 - 5.28 10*6/mm3 Final Hemoglobin 01/09/2025 11.7 (L) 12.0 - 15.9 g/dL Final Hematocrit 01/09/2025 36.0 34.0 - 46.6 % Final MCV 01/09/2025 84.9 79.0 - 97.0 fL Final MCH 01/09/2025 27.6 26.6 - 33.0 pg Final MCHC 01/09/2025 32.5 31.5 - 35.7 g/dL Final RDW 01/09/2025 15.0 12.3 - 15.4 % Final RDW-SD 01/09/2025 46.5 37.0 - 54.0 fl Final MPV 01/09/2025 8.6 6.0 - 12.0 fL Final Platelets 01/09/2025 184 140 - 450 10*3/mm3 Final Neutrophil % 01/09/2025 67.4 42.7 - 76.0 % Final Lymphocyte % 01/09/2025 23.3 19.6 - 45.3 % Final Monocyte % 01/09/2025 5.2 5.0 - 12.0 % Final Eosinophil % 01/09/2025 3.4 0.3 - 6.2 % Final Basophil % 01/09/2025 0.3 0.0 - 1.5 % Final Immature Grans % 01/09/2025 0.4 0.0 - 0.5 % Final Neutrophils, Absolute 01/09/2025 5.08 1.70 - 7.00 10*3/mm3 Final Lymphocytes, Absolute 01/09/2025 1.76 0.70 - 3.10 10*3/mm3 Final Monocytes, Absolute 01/09/2025 0.39 0.10 - 0.90 10*3/mm3 Final Eosinophils, Absolute 01/09/2025 0.26 0.00 - 0.40 10*3/mm3 Final Basophils, Absolute 01/09/2025 0.02 0.00 - 0.20 10*3/mm3 Final Immature Grans, Absolute 01/09/2025 0.03 0.00 - 0.05 10*3/mm3 Final No results found. ASSESSMENT: The patient is a very pleasant 54 y.o. female with left transverse sinus thrombosis PLAN: 1. Left transverse sinus thrombosis: A. Induced by control as well as factor V Leiden. B. She will continue lifelong anticoagulation with Eliquis 2.5 mg twice daily. I will refill it today. 2. Normocytic anemia: A. I reviewed the lab results from today with the patient. Her hemoglobin today was down to 11.7 with MVC of 84.9. WBC and platelet count were normal. 3. Iron deficiency A. Negative GI work-up, with repeat colonoscopy done August 2024 with one polyp removed and recommended 3 year follow up. B. I will follow-up on her iron profile from today and arrange for IV iron if ferritin less than 30or saturation is than 10%. 4. Hypertension: A. The patient will continue metoprolol twice a day and Cozaar daily. 5. Hypothyroid: A. The patient will continue Synthroid 150 mcg daily. This is being managed by Dr. Carson with endocrinology. 6. Type 2 diabetes without complications: A. She will continue insulin, metformin, and Januvia for glucose control. FOLLOW UP: 1 year with labs including CBC and iron profile Usha Bocanegra APRN 01/09/2025 documented in this encounter Plan of Treatment Upcoming Encounters Date Type Department Care Team (Late st Contact Info) Description 03/05/2025 2:45 PM EST Office Visit [facility] HEMATOLOGY & ONCOLOGY [address] [facility] [address] [place] [address] Rhonda Bey MD [address] [facility] [address] [place] [address] 03/22/2025 10:00 AM EST Appointment [facility] [address] [facility] [address] [place] [address] 03/22/2025 12:00 PM EST Appointment [facility] [address] [place] [address] 05/24/2025 2:00 PM EST Office Visit [facility] CARDIOLOGY [address] [facility] [address] [place] [address] Lalito Villalobos PA [address] [facility] [address] [place] [address] 01/15/2026 1:45 PM EDT Office Visit [facility] HEMATOLOGY & ONCOLOGY [address] [facility] [address] [place] [address] Rhonda Bey MD [address] [facility] [address] [place] [address] Scheduled Orders Name Type Priority Associated Diagnoses Orde r Schedule CBC & Differential Lab Panel Routine Cerebral venous sinus thrombosis, associated with thrombophilia, acute Factor V Leiden Normocytic anemia Expected: 01/08/2026 (Approximate), Expires: 01/09/2026 Ferritin Lab Routine Cerebral venous sinus thrombosis, associated with thrombophilia, acute Factor V Leiden Normocytic anemia Expected: 01/08/2026 (Approximate), Expires: 01/09/2026 Iron Profile w/o Ferritin Lab Routine Cerebral venous sinus thrombosis, associated with thrombophilia, acute Factor V Leiden Normocytic anemia Expected: 01/08/2026 (Approximate), Expires: 01/09/2026 documented as of this encounter Visit Diagnoses Diagnosis Cerebral venous sinus thrombosis, associated with thrombophilia, acute- Primary Phlebitis and thrombophlebitis of intracranial venous sinuses Factor V Leiden Primary hypercoagulable state Normocytic anemia Unspecified anemia Cerebral venous sinus thrombosis, associated with thrombophilia, acute- Primary Phlebitis and thrombophlebitis of intracranial venous sinuses documented in this encounter Care Teams Special Effects Specialist Relationship Specialty Start Date End Date Lauren Villalobos MD [address] [facility] [address] [place] [address] PCP - General Internal Medicine & Pediatrics 04/23/21 documented as of this encounter
--- OUTSIDE RECORDS SUMMARY | 2025-01-09 11:15 | XMS_ITS | Encounter Summary ---
[facility] Address [address] [place] [id number] Care Team Providers Care Hospitalist Medical Director Name Role Phone Lauren Villalobos MD Primary Care Provider [phone] Encounter Details Date Type Department Care Team (Late st Contact Info) Description 01/09/2025 12:15 PM EDT Lab [facility] ONCOLOGY LAB [address] [place] [address] Symptomatic anemia Social History Tobacco Use Types Packs/Day Years Used Date Smoking Tobacco: Never Smokeless Tobacco: Never Alcohol Use Standard Drinks/Week Comments Yes 0 [...] on file documented as of this encounter Functional Status documented as of this encounter Plan of Treatment Upcoming Encounters Date Type Department Care Team (Late st Contact Info) Description 03/05/2025 2:45 PM EST Office Visit [facility] HEMATOLOG[facility] & ONCOLOGY [address] [facility] [address] [place] [address] Rhonda Bey MD [address] [facility] [address] [place] [address] 03/22/2025 10:00 AM EST Appointment [facility] NONINV[facility] LAB [address] [place] [address] 03/22/2025 12:00 PM EST Appointment [facility] [address] [place] [address] 05/24/2025 2:00 PM EST Office Visit [facility] CARDIOLOGY [address] [facility] [address] [place] [address] Lalito Villalobos PA [address] [facility] [address] [place], [place] [id number] 01/15/2026 1:45 PM EDT Office Visit [facility] HEMATOLOGY & ONCOLOGY [address] [facility] [address] [place] [address] Rhonda Bey MD [address] [facility] [address] [place], [place] [id number] documented as of this encounter Procedures Procedure Name Priority Date/Time Associated Diagnosis Comments CBC WITH AUTO DIFFERENTIAL Routine 01/09/2025 11:44 AM EDT Symptomatic anemia IRON PROFILE Routine 01/09/2025 11:44 AM EDT Symptomatic anemia CBC AND DIFFERENTIAL Routine 01/09/2025 11:44 AM EDT Symptomatic anemia FERRITIN Routine 01/09/2025 11:44 AM EDT Symptomatic anemia documented in this encounter Results * (ABNORMAL) CBC Auto Differential (01/09/2025 11:44 AM EDT) WBC 7.54 3.40 - 10.80 10*3/mm3 01/09/2025 11:47 AM EDT [facility] RBC 4.24 3.77 - 5.28 10*6/mm3 01/09/2025 11:[facility] Hemoglobin 11.7(L) 12.0 - 15.9 g/dL 01/09/2025 11:47 AM EDT [facility] Hematocrit 36.0 34.0 - 46.6 % 01/09/2025 11:47 [facility] MCV 84.9 79.0 - 97.0 fL 01/09/2025 11:47 AM EDT [facility] MCH 27.6 26.6 - 33.0 pg 01/09/2025 11:47 AM [facility] MCHC 32.5 31.5 - 35.7 g/dL 01/09/2025 11:47 AM [facility] RDW 15.0 12.3 - 15.4 % 01/09/2025 11:47 AM [facility] RDW-SD 46.5 37.0 - 54.0 fl 01/09/2025 11:47 AM [facility] MPV 8.6 6.0 - 12.0 fL 01/09/2025 11:47 AM [facility] Platelets 184 140 - 450 10*3/mm3 01/09/2025 11:47 AM [facility] Neutrophil % 67.4 42.7 - 76.0 % 01/09/2025 11:47 AM [facility] Lymphocyte % 23.3 19.6 - 45.3 % 01/09/2025 11:47 AM [facility] Monocyte % 5.2 5.0 - 12.0 % 01/09/2025 11:47 AM [facility] Eosinophil % 3.4 0.3 - 6.2 % 01/09/2025 11:47 AM [facility] Basophil % 0.3 0.0 - 1.5 % 01/09/2025 11:47 AM [facility] Immature Grans % 0.4 0.0 - 0.5 % 01/09/2025 11:47 AM EDT [facility] Neutrophils, Absolute 5.08 1.70 - 7.00 10*3/mm3 01/09/2025 11:47 AM EDT [facility] Lymphocytes, Absolute 1.76 0.70 - 3.10 10*3/mm3 01/09/2025 11:47 AM EDT [facility] Monocytes, Absolute 0.39 0.10 - 0.90 10*3/mm3 01/09/2025 11:47 AM EDT [facility] Eosinophils, Absolute 0.26 0.00 - 0.40 10*3/mm3 01/09/2025 11:47 AM EDT [facility] Basophils, Absolute 0.02 0.00 - 0.20 10*3/mm3 01/09/2025 11:47 AM EDT [facility] Immature Grans, Absolute 0.03 0.00 - 0.05 10*3/mm3 01/09/2025 11:47 AM EDT [facility] Blood Venipuncture / Unknown 01/09/2025 11:44 AM EDT 01/09/2025 11:44 AM EDT us Rhonda Bey MD LAB BLOOD ORDERABLES Final Resu lt [facility]
[address] [place] [address], * (ABNORMAL) Iron Profile (01/09/2025 11:44 AM EDT) Iron 56 37 - 145 mcg/dL 01/09/2025 12:33 PM EDT [facility] Iron Saturation (TSAT) 12(L) 20 - 50 % 01/09/2025 12:33 PM EDT [facility] Transferrin 322 200 - 360 mg/dL 01/09/2025 12:33 PM EDT [facility] TIBC 480 298 - 536 mcg/dL 01/09/2025 12:33 PM EDT [facility] Blood Venipuncture / Unknown 01/09/2025 11:44 AM EDT 01/09/2025 11:44 AM EDT us Rhonda Bey MD LAB BLOOD ORDERABLES Final Resu lt Performing Organization Address [facility]/ZIP Co de Phone Number [facility]
[address] [place] [address], [place] [phone] * (ABNORMAL) Ferritin (01/09/2025 11:44 AM EDT) Ferritin 162.00(H) 13.00 - 150.00 ng/mL 01/09/2025 12:33 PM EDT [facility] Blood Venipuncture / Unknown 01/09/2025 11:44 AM EDT 01/09/2025 11:44 AM EDT Narrative [facility] - 01/09/2025 12:33 PM EDT Results may be falsely decreased if patient taking Biotin. us Rhonda Bey MD LAB BLOOD ORDERABLES Final Resu lt Performing Organization Address [facility]/ZIP Co de Phone Number [facility]
[address] [place] [address], [place] [phone] documented in this encounter Visit Diagnoses Diagnosis Symptomatic anemia Cerebral venous sinus thrombosis, associated with thrombophilia, acute- Primary Phlebitis and thrombophlebitis of intracranial venous sinuses documented in this encounter Care Teams Hospitalist Medical Director Relationship Specialty Start Date End Date Lauren Villalobos MD [address] [place] [address] PCP - General Internal Medicine & Pediatrics 04/23/21 documented as of this encounter
--- OUTSIDE RECORDS SUMMARY | 2025-01-17 11:15 | XMS_ITS | Encounter Summary ---
[facility] Address [address] [place] [address] Care Team Providers Care Pruner Name Role Phone Lauren Villalobos MD Primary Care Provider [phone] Encounter Details Date Type Department Care Team (Late st Contact Info) Description 01/17/2025 12:15 PM EDT Lab [facility] [place] [address] [facility] [address] [facility] [address] [place] [address] Thrombocytopenia, unspecified Social History Tobacco Use Types Packs/Day Years [...] on file documented as of this encounter Plan of Treatment Upcoming Encounters Date Type Department Care Team (Late st Contact Info) Description 03/05/2025 2:45 PM EST Office Visit [facility] HEMATOLOGY & ONCOLOGY [address] [facility] [address] [place] [address] Rhonda Bey MD [address] [facility] [address] [place] [address] 03/22/2025 10:00 AM EST Appointment [facility] [address] [facility] [address] [place] [address] 03/22/2025 12:00 PM EST Appointment [facility] [address] [facility] [address] [place] [address] 05/24/2025 2:00 PM EST Office Visit [facility] [address] [facility] [address] [place] [phone] Lalito Villalobos PA [address] [facility] [address] [place], [place] [id number] 01/15/2026 1:45 PM EDT Office Visit [facility] HEMATOLOGY & ONCOLOGY [address] [facility] [address] [place] [phone] Rhonda Bey MD [address] [place] [place], [place] [id number] documented as of this encounter Procedures Procedure Name Priority Date/Time Associated Diagnosis Comments CBC W/MANUAL DIFFERENTIAL Routine 01/17/2025 12:11 PM EDT Thrombocytopenia, unspecified PATHOLOGY CONSULTATION Routine 01/17/2025 12:11 PM EDT Thrombocytopenia, unspecified CBC WITH AUTO DIFFERENTIAL Routine 01/17/2025 12:11 PM EDT Thrombocytopenia, unspecified PERIPHERAL BLOOD SMEAR, PATH REVIEW Routine 01/17/2025 12:11 PM EDT Thrombocytopenia, unspecified MANUAL DIFFERENTIAL Routine 01/17/2025 1 2:11 PM EDT Thrombocytopenia, unspecified documented in this encounter Results * Pathology Consultation (01/17/2025 12:11 PM EDT) Final Diagnosis 1. Peripheral blood, smear review: - Thrombocytopenia. - Mild normocytic anemia. COMMENT: White blood cells are mature, comprised of neutrophils, lymphocytes and occasional monocytes. Red cells are predominantly normal in morphology with scattered microcytic cells, some macrocytic cells and elliptocytes present. Platelets are normal in morphology and mildly decreased in number. Platelet clumping is noted on the smear. In general, thrombocytopenia can be categorized into causes due to: (1) decreased platelet production (seen with bone marrow replacement by malignancy or with certain drugs including thiazides, alcohol, estrogens); (2) increased platelet destruction (as with idiopathic thrombocytopenic purpura or thrombotic thrombocytopenic purpura); (3) increased sequestration (as with hypersplenism);or (4) with platelet dilution (as with hemorrhage and multiple blood transfusions). Useful tests and workup of these patients may include bone marrow examination, Zeina test, serum protein electrophoresis, KAREN, and tests for antiplatelet antibodies. Normocytic anemia may be seen with acute hemorrhage, chronic hemolytic disorders, or anemia associated with chronic diseases such as liver disease, chronic renal failure, chronic inflammation, various endocrine disorders, or multiple myeloma. A reticulocyte count would be useful in the differential diagnosis. SW 01/18/2025 2:25 PM EDT [facility] at 1425 EDT Case Report Surgical Pathology Report Case: [id number] Authorizing Provider: Lauren Villalobos MD Collected: 01/17/2025 12:11 PM Ordering Location: [facility] Received: 01/17/2025 11:35 PM [facility] [place] Pathologist: Lorrie Jimenes MD Specimen: Blood, Venous, Peripheral Blood Smear 01/18/2025 2:25 PM EDT [facility] Blood (Blood, Venous) Venipuncture / Unknown 01/17/2025 12:11 PM EDT 01/17/2025 11:35 PM EDT us Lauren Villalobos MD PATHOLOGY/CYTOLOGY ORDERABLES Final Result [facility]
[address] [place] [address], * (ABNORMAL) Manual Differential (01/17/2025 12:11 PM EDT) Neutrophil % 74.5 42.7 - 76.0 % 01/18/2025 12:05 AM [facility] Lymphocyte % 22.4 19.6 - 45.3 % 01/18/2025 12:05 AM [facility] Monocyte % 2.0(L) 5.0 - 12.0 % 01/18/2025 12:05 AM [facility] Eosinophil % 1.0 0.3 - 6.2 % 01/18/2025 12:05 AM [facility] Basophil % 0.0 0.0 - 1.5 % 01/18/2025 12:05 AM [facility] Neutrophils Absolute 5.77 1.70 - 7.00 10*3/mm3 01/18/2025 12:05 AM [facility] Lymphocytes Absolute 1.74 0.70 - 3.10 10*3/mm3 01/18/2025 12:05 AM [facility] Monocytes Absolute 0.16 0.10 - 0.90 10*3/mm3 01/18/2025 12:05 AM [facility] Eosinophils Absolute 0.08 0.00 - 0.40 10*3/mm3 01/18/2025 12:05 AM [facility] Basophils Absolute 0.00 0.00 - 0.20 10*3/mm3 01/18/2025 12:05 AM [facility] Anisocytosis Slight/1+ None Seen 01/18/2025 12:05 AM [facility] Polychromasia Slight/1+ None Seen 01/18/2025 12:05 AM [facility] WBC Morphology Normal Normal 01/18/2025 12:05 AM [facility] Platelet Morphology Normal Normal 01/18/2025 12:05 AM [facility] Blood Venipuncture / Unknown 01/17/2025 12:11 PM EDT 01/17/2025 12:11 PM EDT us Lauren Villalobos MD LAB BLOOD ORDERABLES Final Res ult [facility]
[address] [place] [address], [place] [phone] * (ABNORMAL) CBC Auto Differential (01/17/2025 12:11 PM EDT) WBC 7.75 3.40 - 10.80 10*3/mm3 01/17/2025 11:27 PM EDT [facility] RBC 4.03 3.77 - 5.28 10*6/mm3 01/17/2025 11:27 PM EDT [facility] Hemoglobin 11.2(L) 12.0 - 15.9 g/dL 01/17/2025 11:27 PM EDT [facility] Hematocrit 34.9 34.0 - 46.6 % 01/17/2025 11:27 PM EDT [facility] MCV 86.6 79.0 - 97.0 fL 01/17/2025 11:27 PM EDT [facility] MCH 27.8 26.6 - 33.0 pg 01/17/2025 11:27 PM EDT [facility] MCHC 32.1 31.5 - 35.7 g/dL 01/17/2025 11:27 PM EDT [facility] RDW 14.8 12.3 - 15.4 % 01/17/2025 11:27 PM EDT [facility] RDW-SD 46.8 37.0 - 54.0 fl 01/17/2025 11:27 PM EDT [facility] MPV 9.8 6.0 - 12.0 fL 01/17/2025 11:27 PM EDT [facility] Platelets 61(L) 140 - 450 10*3/mm3 01/17/2025 11:27 PM EDT [facility] Blood Venipuncture / Unknown 01/17/2025 12:11 PM EDT 01/17/2025 12:11 PM EDT us Lauren Villalobos MD LAB BLOOD ORDERABLES Final Res ult Performing Organization Address City/Va Hospital/ZIP Co de Phone Number [facility]
[address] [place] [address], [place] [phone] * Peripheral Blood Smear (01/17/2025 12:11 PM EDT) Pathology Review Yes 01/17/2025 11:35 PM EDT [facility] Blood Venipuncture / Unknown 01/17/2025 12:11 PM EDT 01/17/2025 12:11 PM EDT us Lauren Villalobos MD PATHOLOGY/CYTOLOGY ORDERABLES Final Result Performing Organization Address [facility]/Va Hospital/[facility] Co de Phone Number [facility]
[address] [place] [address], [place] [phone] documented in this encounter Visit Diagnoses Diagnosis Thrombocytopenia, unspecified Cerebral venous sinus thrombosis, associated with thrombophilia, acute- Primary Phlebitis and thrombophlebitis of intracranial venous sinuses documented in this encounter Care Teams Pruner Relationship Specialty Start Date End Date Lauren Villalobos MD [facility] [place] [address] PCP - General Internal Medicine & Pediatrics 04/23/21 documented as of this encounter
--- OUTSIDE RECORDS SUMMARY | 2025-02-21 10:15 | XMS_ITS | Encounter Summary ---
[facility] Address [address] [id number] Care Team Providers Care [employer] Name Role Phone Lauren Villalobos MD Primary Care Provider [phone] Reason for Referral * Diagnostic Imaging (Routine) - Authorized Specialty Diagnoses / Procedures Referred By Contac t Referred To Contact Diagnoses Chest pain, atypical Procedures Adult Transthoracic Echo Complete W/ Cont if Necessary Per Protocol MO ECHO TTHRC R-T 2D W/WOM-MODE COMPL SPEC&COLR D MO ECHO TRANSTHORC R-T 2D W/WO M-MODE REC F-UP/LMTD Lalito Villalobos PA [address] [place] [address] Phone: tel: fax: [facility] [address] [facility] [place] [place] [address] Phone: tel: Referral ID Status Reason Start Date Expiration Date V isits Requested Visits Authorized [id number] Authorized 02/21/2025 05/23/2026 1 1 * MRI/CAT/PET Scan (Routine) - Pending Review Specialty Diagnoses / Procedures Referred By Contac t Referred To Contact Radiology Diagnoses Chest pain, atypical Procedures CT Angiogram Coronary Lalito Villalobos PA [address] [place] [address] Phone: tel: fax: [facility] [address] [place] [address] Phone: tel: Referral ID Status Reason Start Date Expiration Date V isits Requested Visits Authorized [id number] Pending Review 02/21/2025 05/23/2026 1 1 Reason for Visit * Reason Comments Chest Pain * Consultation (Routine) - Closed Specialty Diagnoses / Procedures Referred By Contcourtney t Referred To Contact Cardiology Diagnoses Long-term insulin use Chest pain Lauren Villalobos MD [address] [facility] [address] [place] [address] Phone: tel: fax: [facility] [address] [facility] [address] [place] [address] Phone: tel: fax: Referral ID Status Reason Start Date Expiration Date Visits Re quested Visits Authorized [id number] Closed 02/20/2025 05/22/2026 1 1 Encounter Details Date Type Department Care Team (Late st Contact Info) Description 02/21/2025 10:15 AM EST Office Visit [facility] [address] [facility] [address] [place] [address] Lalito Villalobos PA [address] [facility] [place] [address] Chest pain, atypical (Primary Dx) Social History Tobacco Use Types Packs/Day Years [...] Sign Reading Time Taken Comments Blood Pressure 130/78 02/21/2025 10:10 AM EST Pulse 97 02/21/2025 10:10 AM EST Temperature - - Respiratory Rate - - Oxygen Saturation 97% 02/21/2025 10:10 AM EST Inhaled Oxygen Concentration - - Weight 77.6 kg (171 lb) 02/21/2025 10:10 AM EST Height 152.4 cm (5') 02/21/2025 10:10 AM EST Body Mass Index 33.4 02/21/2025 10:10 AM EST documented in this encounter Progress Notes * Lalito Villalobos PA - 02/21/2025 10:15 AM EST Images from the original note were not included. Cardiac Electrophysiology Outpatient Follow Up Note [facility] Follow Up Office Visit Dinora Draper [id number] 02/21/2025 Primary Care Physician: Lauren Villalobos MD Referred By: Lauren Villalobos MD Subjective Chief Complaint: Diagnoses and all orders for this visit: 1. Chest pain, atypical (Primary) - CT Angiogram Coronary; Future - CT Angiogram Coronary-Cardiology Interpretation; Future - metoprolol tartrate (LOPRESSOR) tablet 200 mg - metoprolol tartrate (LOPRESSOR) tablet 150 mg - metoprolol tartrate (LOPRESSOR) tablet 100 mg - metoprolol tartrate (LOPRESSOR) tablet 50 mg - metoprolol tartrate (LOPRESSOR) tablet 50 mg - metoprolol tartrate (LOPRESSOR) injection 5 mg - nitroglycerin (NITROSTAT) SL tablet 0.4 mg - nitroglycerin (NITROSTAT) SL tablet 0.8 mg - ivabradine HCl (CORLANOR) tablet 15 mg - No Caffeine or Nicotine 4 Hours Prior to CTA Appointment - Nothing to Eat or Drink 4 Hours Prior to CTA Appointment - Do Not Take Phosphodiasterase Inhibitors in the 72 Hours Prior to Coronary CTA - Obtain Informed Consent - Computed Tomography Angiography of Chest - Angiogram of Coronary Arteries; Standing - Vital Signs Upon Arrival; Standing - Cardiac Monitoring; Standing - Verify NPO Status - Patient to Be NPO at Least 4 Hours Prior to CTA; Standing - Notify CT After Administration of metoprolol tartrate (LOPRESSOR) tablet; Standing - Notify Provider If Total Metoprolol Given Equals 300mg & Heart Rate Not At Goal; Standing - Notify Provider Prior to Administration of Nitroglycerin if Patient SBP <80; Standing - POC Creatinine; Standing - Insert Peripheral IV; Standing - Saline Lock & Maintain IV Access; Standing - sodium chloride 0.9 % flush 10 mL - sodium chloride 0.9 % flush 10 mL - sodium chloride 0.9 % infusion 40 mL - Vital Signs - See Instructions; Standing - Hold Medication Metformin (Glucophage, Glucophage XR, Fortament, Glumetza); Metglip (metformin/glipizide); Glucovance (metformin/glyburide); Avandamet (metformin/rosiglitazone); Standing - Patient May Discharge Home After Procedure Complete (If Stable); Standing - metoprolol tartrate (LOPRESSOR) 100 MG tablet; Take 100 mg at Bedtime the Night Before Coronary CTA Appointment and In the Morning 1 Hour Prior to Coronary CTA Appointment. Do not take if heart rate less than 60. Dispense: 2 tablet; Refill: 0 - Adult Transthoracic Echo Complete W/ Cont if Necessary Per Protocol; Future Chief Complaint Patient presents with Chest Pain History of Present Illness: Dinora Draper is a 54 y.o. female who presents to clinic for follow up of for cardiac evaluation regarding chest pain vasovagal type symptoms multiple risk factors for cardiovascular disease. Mrs. Draper denies a previous cardiac history. She did have a stroke 2020 and at that time with been diagnosed with factor V Leiden. She is followed by negative cleaner/oncologist and is on chronic Eliquis therapy. She tells me she is working hard to try to keep her blood pressure and cholesterol controlled. She is compliant to medications. She also been a long-term diabetic. She tells me she been having episodes recently at random events where she feels hot flushed feeling sweaty sometimes numbness in her hands and then she feels some chest heaviness. Does not seem to be associate exertion seems augusta random like mentioned above sometimes happening while resting sometimes up standing. She has hadno syncope with this. She denies vomiting diaphoresis or severe shortness of breath with this. However because of symptoms been persistent along with some episodes of palpitations she wore a Holter monitor. This revealed mostly sinus rhythm occasional episodes sinus tachycardia and occasional PVCs.Today she is here for further Cardiac evaluation. Past Medical History: Past Medical History: Diagnosis Date Asthma Depression Diabetes mellitus Disease of thyroid gland Diverticulitis Factor V Leiden 05/04/2023 Fibromyalgia Lyssa's thyroiditis History of transfusion 01/2020 Hyperlipidemia Hyperparathyroidism 2 years ago Hypertension Hypoglycemia Teenager will still drop periodically Hypothyroidism 10/21/1995 IBS (irritable bowel syndrome) Injury of back Insomnia Stomach ulcer Stroke 07/2019 Only deficit is mild expressive aphasia Type 2 diabetes mellitus Age 35 Vitamin D deficiency Wears glasses Past Surgical History: Past Surgical History: Procedure Laterality Date BACK SURGERY 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 COLONOSCOPY up to date ENDOSCOPY HYSTERECTOMY 01/2020 [facility]--both ovaries remain PARATHYROIDECTOMY N/A 09/26/2021 Procedure: PARATHYROIDECTOMY; Surgeon: Nish Siddiqui MD; Location: [facility]; Service: General; Laterality: N/A; TUBAL ABDOMINAL LIGATION Family History: Family History Problem Relation Name Age of Onset Colon cancer Mother April Yancey 66 Diabetes Mother April Yancey Cancer Mother April Yancey Lung, colan Obesity Mother April Yancey Stroke Father Gilberto Yancey Hypertension Father Gilberto Yancey Diabetes Sister Eileen Cam Everyone on Mothers side Heart failure Sister Eileen Cam Cancer Maternal Aunt Ina Hunt Ring Lung cancer Cancer Maternal Aunt Elsa Ferrera Breast cancer Neg Hx Uterine cancer Neg Hx Endometrial cancer Neg Hx Ovarian cancer Neg Hx Social History: Social History Socioeconomic History Marital status: Tobacco Use Smoking status: Never Smokeless tobacco: Never Vaping Use Vaping status: Never Used Substance and Sexual Activity Alcohol use: Yes Comment: rarely Drug use: No Sexual activity: Yes Partners: Male control/protection: Surgical, Tubal ligation Medications: Current Outpatient Medications: albuterol sulfate HFA 108 (90 Base) MCG/ACT inhaler, Inhale 2 puffs Every 6 (Six) Hours As Needed.,Disp: , Rfl: amitriptyline (ELAVIL) 100 MG tablet, Take 1 tablet by mouth every night at bedtime., Disp: , Rfl: amitriptyline (ELAVIL) 50 MG tablet, Take 1 tablet by mouth every night at bedtime., Disp: , Rfl: apixaban (Eliquis) 2.5 MG tablet tablet, Take 1 tablet by mouth Every 12 (Twelve) Hours., Disp: 60 tablet, Rfl: 5 Continuous Glucose Fabric Worker (FreeStyle Felicia 3 [place]) device, Use 1 Device Continuous. Dx E11.65, Disp: 1 each, Rfl: 0 Continuous Glucose Sensor (FreeStyle Felicia 3 Plus Sensor), Use Every 15 (Fifteen) Days., Disp: 2 each, Rfl: 5 fenofibrate (FENOGLIDE) 40 MG tablet, Take 1 tablet by mouth Daily., Disp: , Rfl: fenofibrate (TRICOR) 54 MG tablet, Take 1 tablet by mouth Daily., Disp: , Rfl: ferrous sulfate 325 (65 FE) MG tablet, Take 1 tablet by mouth Daily With Breakfast., Disp: 30 tablet, Rfl: 6 Insulin Aspart, w/Niacinamide, (Insulin aspart) 100 UNIT/ML solution pen- injector, Inject 20 Units under the skin into the appropriate area as directed 3 (Three) Times a Day Before Meals., Disp: 18 mL, Rfl: 5 Insulin Syringe 31G X 5/16 0.5 ML misc, USE TO ADMINITER INSULIN TWICE DAILY, Disp: , Rfl: Lantus SoloStar 100 UNIT/ML injection pen, Inject 60 Units under the skin into the appropriate areaas directed 2 (Two) Times a Day., Disp: , Rfl: latanoprost (XALATAN) 0.005 % ophthalmic solution, instill 1 drop in both eyes at bedtime, Disp: , Rfl: levothyroxine (SYNTHROID, LEVOTHROID) 150 MCG tablet, Take 1 tablet by mouth Every Other Day., Disp: 45 tablet, Rfl: 3 losartan (COZAAR) 50 MG tablet, Take 1 tablet by mouth Daily., Disp: , Rfl: metFORMIN ER (GLUCOPHAGE-XR) 500 MG 24 hr tablet, Take 2 tablets by mouth 2 (Two) Times a Day., Disp: , Rfl: metoprolol tartrate (LOPRESSOR) 25 MG tablet, Take 1 tablet by mouth Daily., Disp: , Rfl: ondansetron (ZOFRAN) 4 MG tablet, Take 1 tablet by mouth Every 8 (Eight) Hours As Needed for Nauseaor Vomiting., Disp: 20 tablet, Rfl: 2 rosuvastatin (CRESTOR) 40 MG tablet, Take 1 tablet by mouth every night at bedtime., Disp: 90 tablet, Rfl: 3 sertraline (ZOLOFT) 100 MG tablet, Take 1 tablet by mouth Daily., Disp: , Rfl: insulin glargine (LANTUS, SEMGLEE) 100 UNIT/ML injection, Inject 60 Units under the skin into the appropriate area as directed 2 (Two) Times a Day. (Patient not taking: Reported on 02/21/2025), Disp: 36 mL, Rfl: 5 metoprolol tartrate (LOPRESSOR) 100 MG tablet, Take 100 mg at Bedtime the Night Before Coronary CTAAppointment and In the Morning 1 Hour Prior to Coronary CTA Appointment. Do not take if heart rate less than 60., Disp: 2 tablet, Rfl: 0 Allergies: Allergies Allergen Reactions Erythromycin GI Intolerance Penicillins Unknown - Low Severity As a child Objective Vital Signs: Vitals: 02/21/25 1010 BP: 130/78 BP Location: Right arm Patient Position: Sitting Cuff Size: Adult Pulse: 97 SpO2: 97% Weight: 77.6 kg (171 lb) Height: 152.4 cm (60 ) PHYSICAL EXAM General appearance: Awake, alert, cooperative Head: Normocephalic, without obvious abnormality, atraumatic Eyes: Conjunctivae/corneas clear, EOMs intact Neck: no adenopathy, no carotid bruit, no JVD, and thyroid: not enlarged Lungs: clear to auscultation bilaterally and no rhonchi or crackles , ' symmetric Heart: regular rate and rhythm, S1, S2 normal, no murmur, click, rub or gallop Abdomen: Soft, non-tender, bowel sounds normal, no organomegaly Extremities: extremities normal, atraumatic, no cyanosis or edema Skin: Skin color, turgor normal, no rashes or lesions Neurologic: Grossly normal Lab Results Component Value Date GLUCOSE 116 (H) 06/15/2024 CALCIUM 9.3 06/15/2024 NA 136 06/15/2024 K 4.7 06/15/2024 CO2 21.7 (L) 06/15/2024 CL 103 06/15/2024 BUN 21 (H) 06/15/2024 CREATININE 1.13 (H) 06/15/2024 EGFRIFNONA 82 10/18/2020 BCR 18.6 06/15/2024 ANIONGAP 11.3 06/15/2024 Lab Results Component Value Date WBC 7.75 01/17/2025 HGB 11.2 (L) 01/17/2025 HCT 34.9 01/17/2025 MCV 86.6 01/17/2025 PLT 61 (L) 01/17/2025 Lab Results Component Value Date INR 1.05 09/24/2021 INR 1.10 10/28/2019 INR 0.91 07/31/2019 PROTIME 13.6 09/24/2021 PROTIME 13.9 10/28/2019 PROTIME 12.0 07/31/2019 Lab Results Component Value Date TSH 0.607 06/15/2024 Cardiac Testing: I personally viewed and interpreted the patient's EKG/Telemetry/lab data Procedures EKG normal sinus rhythm no significant ST or abnormalities. Assessment & Plan Chest pain with multiple risk factors cardiovascular disease since symptoms somewhat atypical in nature along with vasovagal events. Will pursue coronary CTA and echocardiogram. Previous CVA, factor V Leiden deficiency, chronic Eliquis therapy, followed by negative cleaner oncologist. Recent CBC revealing thrombocytopenia with scheduled follow-up in the near future. Hypertension: Controlled on current medical therapy losartan Toprol. Hyperlipidemia, Crestor and Tricor therapy. Follow-up in 2 to 3 months following coronary CTA echocardiogram. Monitoring blood pressure aggressive hydration. Electronically signed by VERNELL Barreto, 02/21/25, 11:20 AM EST. documented in this encounter Plan of Treatment Upcoming Encounters Date Type Department Care Team (Late st Contact Info) Description 03/05/2025 2:45 PM EST Office Visit [facility] [address] [facility] [address] [place] [address] Rhonda Bey MD [address] [facility] [address] [place] [address] 03/22/2025 10:00 AM EST Appointment [facility]INVAS[facility] [address] [place] [address] 03/22/2025 12:00 PM EST Appointment [facility] [address] [place] [address] 05/24/2025 2:00 PM EST Office Visit [facility] [address] [facility] [address] [place] [address] Lalito Villalobos PA [address] [facility] [address] [place] [address] 01/15/2026 1:45 PM EDT Office Visit [facility] [address] [facility] [address] [place] [address] Rhonda Bey MD [address] [facility] [address] [place], [place] [address] Scheduled Orders Name Type Priority Associated Diagnoses Order Schedule CT Angiogram Coronary Imaging Routine Chest pain, atypical Expected: 02/22/2025, Expires: 05/24/2026 CT Angiogram Coronary-Cardiology Interpretation Cardiac CT Routine Chest pain, atypical Expected: 02/22/2025, Expires: 05/24/2026 Adult Transthoracic Echo Complete W/ Cont if Necessary Per Protocol Echocardiography Routine Chest pain, atypical Expected: 02/28/2025 (Approximate), Expires: 02/21/2026 documented as of this encounter Visit Diagnoses Diagnosis Chest pain, atypical- Primary Cerebral venous sinus thrombosis, associated with thrombophilia, acute- Primary 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
[2025-02-22 19:30] VITALS: BP 151/86; PULSE 88; O2SAT 97
[2025-02-22 19:44] VITALS: BP 128/92; PULSE 95; RESP 20; TEMP 36.6; O2SAT 98; BMI 32.1
--- OUTSIDE RECORDS SUMMARY | 2025-02-22 19:45 | XMS_ITS | Clinical Summary ---
Author Organization [facility] Address [address] [place] [address] Care Team Providers Care Infrastructure Design Engineer Name Role Phone Lauren Villalobos MD Primary Care Provider [phone] Allergies Active Allergy Reactions Criticality Noted Date Comments Erythromycin GI Intolerance Low 09/24/2021 Penicillins Unknown - Low Severity Low 04/26/2017 As a child Medications sertraline (ZOLOFT) 100 MG tablet Take 1 tablet by mouth Daily. 09/27/19 20 Active metoprolol tartrate (LOPRESSOR) 25 MG tablet Take 1 tablet by mouth Daily. Active losartan (COZAAR) 50 MG tablet Take 1 tablet by mouth Daily. 02/09/20 20 Active metFORMIN ER (GLUCOPHAGE-XR) 500 MG 24 hr tablet Take 2 tablets by mouth 2 (Two) Times a Day. 04/26/19 21 Active albuterol sulfate HFA 108 (90 Base) MCG/ACT inhaler Inhale 2 puffs Every 6 (Six) Hours As Needed. 01/17/20 21 Active amitriptyline (ELAVIL) 50 MG tablet Take 1 tablet by mouth every night at bedtime. 03/08/20 22 Active fenofibrate (FENOGLIDE) 40 MG tablet Take 1 tablet by mouth Daily. 03/08/20 22 Active Insulin Syringe 31G X 09/01 0.5 ML misc USE TO ADMINITER INSULIN TWICE DAILY 06/19/19 23 Active latanoprost (XALATAN) 0.005 % ophthalmic solution instill 1 drop in both eyes at bedtime 06/21/19 24 Active ferrous sulfate 325 (65 FE) MG tablet Take 1 tablet by mouth Daily With Breakfast. 30 tablet 6 07/07/19 24 Active levothyroxine (SYNTHROID, LEVOTHROID) 150 MCG tablet Take 1 tablet by mouth Every Other Day. 45 tablet 3 10/14/19 24 Active ondansetron (ZOFRAN) 4 MG tablet Take 1 tablet by mouth Every 8 (Eight) Hours As Needed for Nausea or Vomiting. 20 tablet 2 10/19/19 24 Active Insulin Aspart, w/Niacinamide, (Insulin aspart) 100 UNIT/ML solution pen-injectorIndic ations:Uncontroll ed type 2 diabetes mellitus with hyperglycemia Inject 20 Units under the skin into the appropriate area as directed 3 (Three) Times a Day Before Meals. 18 mL 5 06/15/19 25 Active rosuvastatin (CRESTOR) 40 MG tablet Take 1 tablet by mouth every night at bedtime. 90 tablet 3 06/15/19 25 Active insulin glargine (LANTUS, SEMGLEE) 100 UNIT/ML injection Inject 60 Units under the skin into the appropriate area as directed 2 (Two) Times a Day. 36 mL 5 08/26/19 25 Active Additional Information Patient not taking.Reported on 02/21/2025 amitriptyline (ELAVIL) 100 MG tablet Take 1 tablet by mouth every night at bedtime. 12/22/19 Active fenofibrate (TRICOR) 54 MG tablet Take 1 tablet by mouth Daily. 11/11/19 25 Active apixaban (Eliquis) 2.5 MG tablet tabletIndications :Cerebral venous sinus thrombosis, associated with thrombophilia, acute Take 1 tablet by mouth Every 12 (Twelve) Hours. 60 tablet 01/10/20 25 Active Continuous Glucose Sensor (FreeStyle Felicia 3 Plus Sensor)Indication s:Uncontrolled type 2 diabetes mellitus with hyperglycemia Use Every 15 (Fifteen) Days. 2 each 01/11/20 Active Continuous Glucose Administrative Support Clerk (FreeStyle Felicia 3 [place]) deviceIndications :Uncontrolled type 2 diabetes mellitus with hyperglycemia Use 1 Device Continuous. Dx E11.65 1 each 02/01/20 25 Active Lantus SoloStar 100 UNIT/ML injection pen Inject 60 Units under the skin into the appropriate area as directed 2 (Two) Times a Day. 02/12/20 25 Active metoprolol tartrate (LOPRESSOR) 100 MG tabletIndications :Chest pain, atypical Take 100 mg at Bedtime the Night Before Coronary CTA Appointment and In the Morning 1 Hour Prior to Coronary CTA Appointment. Do not take if heart rate less than 60. 2 tablet 02/22/20 Active Continuous Glucose Administrative Support Clerk (FreeStyle Felicia 3 [place]) deviceIndications :Uncontrolled type 2 diabetes mellitus with hyperglycemia Use 1 Device Continuous. 1 each 06/15/19 25 025 Discontin ued(Reord er) Continuous Glucose Administrative Support Clerk (FreeStyle Felicia 3 [place]) deviceIndications :Uncontrolled type 2 diabetes mellitus with hyperglycemia Use 1 Device Continuous. Dx E11.65 1 each 02/01/20 25 025 Discontin ued(Reord er) Active Problems Problem Noted Date Diagnosed Date Chest pain, atypical 02/21/2025 Factor V Leiden 05/04/2023 Pre-op evaluation 08/12/2021 Insulin long-term use 06/06/2021 Primary hyperparathyroidism 06/06/2021 Assessment & Plan (10/13/2023 2:04 PM EDT): H/o parathyroidectomy. Check calcium. Assessment & Plan (08/14/2022 4:02 PM EDT): Now s/p parathyroidectomy. Check calcium today. Assessment & Plan (06/06/2021 8:30 AM EST): She has primary hyperparathyroidism with calcium >11. Will refer for parathyroidectomy. She is on eliquis which will complicate things. 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 Blood pressure will be reassessed in 6 months. Assessment & Plan (08/14/2022 4:01 PM EDT): Hypertension is improving with treatment. Continue current treatment regimen. Blood pressure will be reassessed at the next regular appointment. Assessment & Plan (06/06/2021 8:16 AM EST): Hypertension is improving with treatment. Continue current treatment regimen. Blood pressure will be reassessed at the next regular appointment. Hypothyroidism 07/31/2019 Assessment & Plan (06/15/2024 11:22 AM EST): Clinically euthyroid on levothyroxine 175 mcg alternating with 150 mcg every other day. Check thyroid levels today. Further recommendations regarding dose and lab rechecks based on results. Assessment & Plan (10/13/2023 2:05 PM EDT): Continue T4 tx. Check TSH. Assessment & Plan (08/14/2022 4:00 PM EDT): Continue T4 tx. Check TSH. Assessment & Plan (06/06/2021 8:34 AM EST): Continue T4. She reports TSH was just checked but she hasn't gotten results yet. Uncontrolled type 2 diabetes mellitus with hyper glycemia 07/31/2019 Assessment & Plan (06/15/2024 11:23 AM EST): Diabetes is worsening. Medication changes per orders. Regular aerobic exercise. Patient has continued to struggle with tolerating Ozempic. Will send in Lucy to see if this is better tolerated. She will try 2.5 mg weekly and if tolerated will stay on this dose until next visit. Sent in Zofran for her to use as needed but this is not meant to be a permanent solution for nausea. If unable to get Mounjaro, discussed increasing insulin doses. If morning blood sugars are above 150, she can increase each Levemir dose by 3 units until morning sugars are below 150. She will also try increasing Fiasp to 20 to 25 units before meals. Patient is interested in trying a CGM. Sent in felicia 3+ to pharmacy to determine cost. This will be beneficial as patient is titrating insulin doses and for closely monitoring glucose levels. Check fasting screening labs today. Further recommendations based on results. Diabetes will be reassessed in 3 months Assessment & Plan (10/13/2023 2:13 PM EDT): Diabetes is improving with treatment. She would like to try low dose ozempic again. Potential s/e discussed. Watch for hypoglycemia. Diabetes will be reassessed in 6 months. Assessment & Plan (08/14/2022 4:10 PM EDT): Diabetes is improving with treatment. A1c better but above goal. She notes higher fasting FSBS. She hasn't tolerated SGLT-2 inhibitors or GLP-1 RA. Try adding januvia. Titrate up basal insulin. Diabetes will be reassessed in 3 months. Assessment & Plan (06/06/2021 8:44 AM EST): Diabetes is worsening. Last A1c was 11.2%. We discussed treatment options. I would like to try ozempic again to see if she can tolerate it. Try stopping fiasp. Diabetes will be reassessed in 3 months. Dyslipidemia 07/31/2019 Assessment & Plan (10/13/2023 2:12 PM EDT): Continue statin. Plan to check lipids next visit. Assessment & Plan (08/14/2022 4:01 PM EDT): Continue statin and fenofibrate. Plan to check lipids next visit. Assessment & Plan (06/06/2021 8:35 AM EST): Continue statin. Work on better DM control. Gastric ulcers 07/31/2019 Gastroparesis 07/31/2019 Acute on chronic sinusitis 07/31/2019 Acute intracranial hemorrhage 07/31/2019 Resolved Problems Problem Noted Date Diagnosed Date Resolved Date Class 1 obesity in adult 07/31/201902/2020 Encounters Date Type Department Care Team Description 02/21/2025 10:15 AM EST Office Visit [facility] CARDIOLOG[facility] [address] [place] [address] Lalito Villalobos PA Chest pain, atypical (Primary Dx) 02/21/2025 Travel 02/05/2025 Telephone [facility] HEMATOLOGY & ONCOLOGY [address] [facility] [address] [place] [address] BADIN - CLINICAL 01/31/2025 Telephone [facility] ENDOCRINOLOGY [address] [place] [address] Karina Du PA 01/17/2025 12:15 PM EDT Lab [facility] [place] [address] [place] [address] Thrombocytopenia, unspecified 01/17/2025 Travel 01/10/2025 Telephone [facility] HEMATOLOGY & ONCOLOGY [address] [facility] [address] [place] [address] Rhonda Bey MD [facility]-LAB RESULTS 01/10/2025 Refill [facility] ENDOCRINOLOGY [address] [place] [address] Karina Du PA Uncontrolled type 2 diabetes mellitus with hyperglycemia 01/10/2025 Refill [facility] ENDOCRINOLOG[facility] [address] [place] [address] Karina Du PA Uncontrolled type 2 diabetes mellitus with hyperglycemia 01/09/2025 12:15 PM EDT Lab [facility] ONCOLOGY LAB [address] [place] [address] Symptomatic anemia 01/09/2025 11:30 AM EDT Office Visit [facility] HEMATOLOGY & ONCOLOGY [address] [facility] [address] [place] [address] Usha Bocanegra APRN Cerebral venous sinus thrombosis, associated with thrombophilia, acute (Primary Dx); Factor V Leiden; Normocytic anemia 01/09/2025 Travel 12/13/2024 Refill [facility] ENDOCRINOLOGY [address] [place] [address] Moy Carson MD from Last 3 Months Immunizations Immunization Administration Dates Next Due COVID-19 (PFIZER) Purple Cap Monovalent 07/17/19 21,06/25/2020 Family History Medical History Relation Name Comments Hypertension Father Gilberto Yancey Stroke Father Gilberto Yancey Cancer Maternal Aunt 1 Ina Marilee Ring Lung cancer Cancer Maternal Aunt 2 Elsa Livingood Cancer Mother April Yancey Lung, colan Colon cancer Mother April Yancey Diabetes Mother April Yancey Obesity Mother April Yancey Diabetes Sister Eileen Cam Everyone on Mothers side Heart failure Sister Eileen Cam Breast cancer Neg Hx Endometrial cancer Neg Hx Ovarian cancer Neg Hx Uterine cancer Neg Hx Relation Name Status Comments Father Gilberto Yancey Maternal Aunt 1 Ina Marilee Ring Maternal Aunt 2 Elsa Bullood Mother April Yancey Alive Sister Eileen Cam Social History Tobacco Use Types Packs/Day Years [...] on file Sexual Orientation Not on file Last Filed Vital Signs Vital Sign Reading Time Taken Comments Blood Pressure 130/78 02/21/2025 10:10 AM EST Pulse 97 02/21/2025 10:10 AM EST Temperature 36.4 C (97.5 F) 01/09/2025 11:35 AM EDT Respiratory Rate 18 01/09/2025 11:35 AM EDT Oxygen Saturation 97% 02/21/2025 10:10 AM EST Inhaled Oxygen Concentration - - Weight 77.6 kg (171 lb) 02/21/2025 10:10 AM EST Height 152.4 cm (5') 02/21/2025 10:10 AM EST Body Mass Index 33.4 02/21/2025 10:10 AM EST Plan of Treatment Upcoming Encounters Date Type Department Care Team (Late st Contact Info) Description 03/05/2025 2:45 PM EST Office Visit [facility] HEMAT[facility] & ONCOLOGY [address] [place] [address] Rhonda Bey MD [address] [facility] [address] [place] [address] 03/22/2025 10:00 AM EST Appointment [facility] [address] [facility] [address] [place] [address] 03/22/2025 12:00 PM EST Appointment [facility] [address] [place] [address] 05/24/2025 2:00 PM EST Office Visit [facility] CARDI[facility] [address] [facility] [address] [place] [address] Lalito Villalobos PA [address] [facility] [address] [place] [address] 01/15/2026 1:45 PM EDT Office Visit [facility] HEMATOLOGY & ONCOLOGY [address] [facility] [address] [place] [address] Rhonda Bey MD [address] [facility] [address] [place] [address] Health Maintenance Due Date Last Done Comments Annual Gynecologic Pelvic an d Breast Exam 1972 DIABETIC EYE EXAM 1982 DIABETIC FOOT EXAM 1982 Hepatitis B (1 of 3 - 19+ 3- dose series) 10/21/1991 MAMMOGRAM 2012 Pneumococcal Vaccine 50+ (2 of 2 - PCV) 12/25/2016 12/26/2015 COLOGUARD 2017 COLON CANCER SCREENING 5 YEA R SIGMOIDOSCOPY [address] COLONOGRAPHY 2017 FECAL OCCULT BLOOD TEST 2017 FIT Testing (1 year) 2017 ANNUAL PHYSICAL 06/09/2019 HEPATITIS C SCREENING 06/09/2019 ZOSTER VACCINE (1 of 2) 2022 INFLUENZA VACCINE 11/17/2024 01/13/2023 HEMOGLOBIN A1C 12/13/2024 06/15/2024, 09/18, 01/13/2023, Additional history exists URINE MICROALBUMIN-CREATININ E RATIO (uACR) 06/15/2025 06/15/2024 COLONOSCOPY 08/31/2027 08/30/2024, 06/29/2019 COLORECTAL CANCER SCREENING 08/31/2027 TDAP/TD VACCINES (2 - Td or Tdap) 07/28/2030 021 Medical Devices Implanted Type Area Mental Health Consultant Device Identifier Shelf Expiration Date Model / Serial / Lot Hemost Abs Surgicel 4x8in - [id number] Implanted:Qty : 1 on 09/26/2021 by Nish Siddiqui MD at [facility] Implant N/A: Parathyroid [employer] J [employer] J 1951 / / Clip Ligat Vasc Horizon Ti Sm Yel 6ct - [id number] Implanted:Qty : 1 on 09/26/2021 by Nish Siddiqui MD at [facility] Implant N/A: Parathyroid [employer] [id number] / / Procedures Procedure Name Priority Date/Time Associated Diagnosis Comments SCANNED EKG 02/21/2025 SCANNED - LABS 02/13/2025 CBC W/MANUAL DIFFERENTIAL Routine 01/17/2025 12:11 PM EDT Thrombocytopenia, unspecified PATHOLOGY CONSULTATION Routine 01/17/2025 12:11 PM EDT Thrombocytopenia, unspecified PERIPHERAL BLOOD SMEAR, PATH REVIEW Routine 01/17/2025 12:11 PM EDT Thrombocytopenia, unspecified MANUAL DIFFERENTIAL Routine 01/17/2025 1 2:11 PM EDT Thrombocytopenia, unspecified CBC WITH AUTO DIFFERENTIAL Routine 01/17/2025 12:11 PM EDT Thrombocytopenia, unspecified SCANNED - LABS 01/17/2025 CBC AND DIFFERENTIAL Routine 01/09/2025 11:44 AM EDT Symptomatic anemia CBC WITH AUTO DIFFERENTIAL Routine 01/09/2025 11:44 AM EDT Symptomatic anemia IRON PROFILE Routine 01/09/2025 11:44 AM EDT Symptomatic anemia FERRITIN Routine 01/09/2025 11:44 AM EDT Symptomatic anemia SCANNED EKG 12/20/2024 SCANNED - COLONOSCOPY 08/30/2024 POCT GLYCOSYLATED HEMOGLOBIN (HGB A1C) Routine 06/15/2024 9:42 AM EST Uncontrolled type 2 diabetes mellitus with hyperglycemia from Last 3 Months or Most Recently Relevant to Health Maintenance Results * ECG Scan (02/21/2025) Only the most recent of2 resultswithin the time period is included. VERNELL Mcgregor ECG ORDERABLES Final Resu lt * LABS SCANNED (02/13/2025) Only the most recent of2 resultswithin the time period is included. [facility] Onbase LAB BLOOD ORDERABLES Final Re sult * Pathology Consultation (01/17/2025 12:11 PM EDT) [...] differential diagnosis. SW 01/18/2025 2:25 PM EDT [facility] at 1425 EDT Case Report Surgical Pathology Report Case: [id number] Authorizing Provider: Lauren Villalobos MD Collected: 01/17/2025 12:11 PM Ordering Location: [facility] Received: 01/17/2025 11:35 PM [facility] [place] Pathologist: Lorrie Jimenes MD Specimen: Blood, Venous, Peripheral Blood Smear 01/18/2025 2:25 PM EDT [facility] Blood (Blood, Venous) Venipuncture / Unknown 01/17/2025 12:11 PM EDT 01/17/2025 11:35 PM EDT Lauren Villalobos MD PATHOLOGY/CYTOLOGY ORDERABLES Final Result [facility]
[address] [place] [address], * (ABNORMAL) CBC Auto Differential (01/17/2025 12:11 PM EDT) Only the most recent of2 resultswithin the time period is included. WBC 7.75 3.40 - 10.80 10*3/mm3 01/17/2025 11:27 PM EDT [facility] RBC 4.03 3.77 - 5.28 10*6/mm3 01/17/2025 11:27 PM EDT [facility] Hemoglobin 11.2(L) 12.0 - 15.9 g/dL 01/17/2025 11:27 PM EDT [facility] Hematocrit 34.9 34.0 - 46.6 % 01/17/2025 11:27 PM EDT [facility] MCV 86.6 79.0 - 97.0 fL 01/17/2025 11:27 PM EDT [facility] MCH 27.8 26.6 - 33.0 pg 01/17/2025 11:27 PM EDT [facility] MCHC 32.1 31.5 - 35.7 g/dL 01/17/2025 11:27 PM EDT [facility] RDW 14.8 12.3 - 15.4 % 01/17/2025 11:27 PM EDT [facility] RDW-SD 46.8 37.0 - 54.0 fl 01/17/2025 11:27 PM EDT [facility] MPV 9.8 6.0 - 12.0 fL 01/17/2025 11:27 PM EDT [facility] Platelets 61(L) 140 - 450 10*3/mm3 01/17/2025 11:27 PM EDT [facility] Blood Venipuncture / Unknown 01/17/2025 12:11 PM EDT 01/17/2025 12:11 PM EDT us Lauren Villalobos MD LAB BLOOD ORDERABLES Final Res ult [facility]
[address] [place] [address], * Peripheral Blood Smear (01/17/2025 12:11 PM EDT) Pathology Review Yes 01/17/2025 11:35 PM EDT [facility] Blood Venipuncture / Unknown 01/17/2025 12:11 PM EDT 01/17/2025 12:11 PM EDT us Lauren Villalobos MD PATHOLOGY/CYTOLOGY ORDERABLES Final Result [facility]
[address] [place] [address], * (ABNORMAL) Manual Differential (01/17/2025 12:11 PM EDT) Neutrophil % 74.5 42.7 - 76.0 % 01/18/2025 12:05 AM EDT [facility] Lymphocyte % 22.4 19.6 - 45.3 % 01/18/2025 12:05 AM EDT [facility] Monocyte % 2.0(L) 5.0 - 12.0 % 01/18/2025 12:05 AM EDT [facility] Eosinophil % 1.0 0.3 - 6.2 % 01/18/2025 12:05 AM EDT [facility] Basophil % 0.0 0.0 - 1.5 % 01/18/2025 12:05 AM EDT [facility] Neutrophils Absolute 5.77 1.70 - 7.00 10*3/mm3 01/18/2025 12:05 AM EDT [facility] Lymphocytes Absolute 1.74 0.70 - 3.10 10*3/mm3 01/18/2025 12:05 AM EDT [facility] Monocytes Absolute 0.16 0.10 - 0.90 10*3/mm3 01/18/2025 12:05 AM EDT [facility] Eosinophils Absolute 0.08 0.00 - 0.40 10*3/mm3 01/18/2025 12:05 AM EDT [facility] Basophils Absolute 0.00 0.00 - 0.20 10*3/mm3 01/18/2025 12:05 AM EDT [facility] Anisocytosis Slight/1+ None Seen 01/18/2025 12:05 AM EDT [facility] Polychromasia Slight/1+ None Seen 01/18/2025 12:05 AM T [facility] WBC Morphology Normal Normal 01/18/2025 12:05 AM EDT [facility] Platelet Morphology Normal Normal 01/18/2025 12:05 AM EDT [facility] Blood Venipuncture / Unknown 01/17/2025 12:11 PM EDT 01/17/2025 12:11 PM EDT Lauren Villalobos MD LAB BLOOD ORDERABLES Final Res ult Performing Organization Address City/[facility]/ZIP Co de Phone Number [facility]
[address] [place] [address], * (ABNORMAL) Iron Profile (01/09/2025 11:44 AM EDT) Iron 56 37 - 145 mcg/dL 01/09/2025 12:33 PM EDT [facility] Iron Saturation (TSAT) 12(L) 20 - 50 % 01/09/2025 12:33 PM EDT [facility] Transferrin 322 200 - 360 mg/dL 01/09/2025 12:33 PM EDT [facility] TIBC 480 298 - 536 mcg/dL 01/09/2025 12:33 PM EDT [facility] Blood Venipuncture / Unknown 01/09/2025 11:44 AM EDT 01/09/2025 11:44 AM EDT us Rhonda Bey MD LAB BLOOD ORDERABLES Final Resu lt Performing Organization Address City/[facility] Co de Phone Number [facility]
[address] [place] [address], * (ABNORMAL) Ferritin (01/09/2025 11:44 AM EDT) Ferritin 162.00(H) 13.00 - 150.00 ng/mL 01/09/2025 12:33 PM EDT [facility] Blood Venipuncture / Unknown 01/09/2025 11:44 AM EDT 01/09/2025 11:44 AM EDT Narrative [facility] - 01/09/2025 12:33 PM EDT Results may be falsely decreased if patient taking Biotin. Rhonda Bey MD LAB BLOOD ORDERABLES Final Resu lt [facility]
[address] [place] [address], [place] [phone] * Colonoscopy, Scan (08/30/2024) Derrick Burch MD CHART REVIEW T ABS Final Result * (ABNORMAL) POC Glycosylated Hemoglobin (Hb A1C) (06/15/2024 9:42 AM EST) Hemoglobin A1C 9.1(A) 4.5 - 5.7 % [facility] Lot Number [id number] [facility] Expiration Date [facility] Blood 06/15/2024 9:42 AM EST Karina MATT POINT OF CARE TEST ORDERABLES F inal Result Performing Organization Address City/[facility]/ZIP Co de Phone Number [facility]
[address] [place] [id number], from Last 3 Months or Most Recently Relevant to Health Maintenance Insurance [employer] Advance Directives * CPR (Attempt to Resuscitate) (Latest Code Status on File) Date Activated Date Inactivated Comments 10/28/2019 10:29 PM 10/30/2019 6:52 PM Question Answer Comments Code Status (Patient has no pulse and is not breathing): CPR (Attempt to Resuscitate) Medical Interventions (Patie nt has pulse or is breathing): Full * CPR (Attempt to Resuscitate) Date Activated Date Inactivated Comments 07/31/2019 3:22 AM 08/08/2019 1:31 PM Question Answer Comments Code Status (Patient has no pulse and is not breathing): CPR (Attempt to Resuscitate) Medical Interventions (Patie nt has pulse or is breathing): Full Level Of Support Discussed With: Patient Care Teams Infrastructure Design Engineer Relationship Specialty Start Date End Date Lauren Villalboos MD [address] [place] [address] PCP - General Internal Medicine & Pediatrics 04/23/21
--- OUTSIDE RECORDS SUMMARY | 2025-02-22 19:46 | XMS_ITS | Encounter Summary ---
[facility] Organization [facility] Address [address] [place] [address] Care Team Providers Care K9 Handler Name Role Phone Lauren Villalboos MD Primary Care Provider [phone] Encounter Details Date Type Department Care Team (Latest Contact Info) Description 01/17/2025 Travel Social History Tobacco Use Types Packs/Day Years [...] Description 03/05/2025 2:45 PM EST Office Visit [facility] HEMATOLOGY & ONCOLOGY [address] [facility] [facility] [address] [place] [address] Rhonda Bey MD [address] [facility] [address] [place] [address] 03/22/2025 10:00 AM EST Appointment [facility] NONINVASIVE LAB [address] 3[address] [place] [address] 03/22/2025 12:00 PM EST Appointment [facility] [address] [place] [address] 05/24/2025 2:00 PM EST Office Visit [facility] CARDIOLOGY [address] [facility] [address] [place] [address] Lalito Villalobos PA [address] [facility] [address] [place] [address] 01/15/2026 1:45 PM EDT Office Visit [facility] HEMATOLOGY & ONCOLOGY [address] [facility] [address] [place] [address] Rhonda Bey MD [address] [facility] [address] [place] [address] documented as of this encounter Visit Diagnoses Not on filedocumented in this encounter Care Teams K9 Handler Relationship Specialty Start Date End Date Lauren Villalobos MD [address] [facility] [address] [place] [address] PCP - General Internal Medicine & Pediatrics 04/23/21 documented as of this encounter
--- OUTSIDE RECORDS SUMMARY | 2025-02-22 19:46 | XMS_ITS | Encounter Summary ---
[facility] Organization [facility] Address [address] [place] [id number] Care Team Providers Care Internet Designer Name Role Phone Lauren Villalobos MD Primary Care Provider [phone] Encounter Details Date Type Department Care Team (Late st Contact Info) Description 01/31/2025 Telephone [facility] ENDOCRINOLOGY [address] [facility] [address] [place] [address] Karina Du PA 3084 [facility] [address] [place], [place] [id number] Social History Tobacco Use Types Packs/Day Years [...] on file documented as of this encounter Miscellaneous Notes * Telephone Encounter - Carly Brown MA - 01/31/2025 12:20 PM EDT Spoke with patient. Rx sent per protocol. * Telephone Encounter - Salud Saunders RegSched Rep - 01/31/2025 11:38 AM EDT Patient called in and said she lost her glucose telephone quotation clerk (FreeStyle Felicia 3 [place]) device and wanted to see if she could get a new one sent to her pharmacy. She asked for a call back if this is possible. documented in this encounter Plan of Treatment Upcoming Encounters Date Type Department Care Team (Late st Contact Info) Description 03/05/2025 2:45 PM EST Office Visit [facility] HEMATOLOGY & ONCOLOGY [address] [facility] [address] [place] [address] Rhonda Bey MD 1700 [facility] [address] [place] [address] 03/22/2025 10:00 AM EST Appointment [facility]INVASIVE LAB 1720 [facility] 3rd [place] [address] 03/22/2025 12:00 PM EST Appointment [facility] [address] [place] [address] 05/24/2025 2:00 PM EST Office Visit [facility] CARDIOLOGY [address] [facility] 400 [place] [address] Lalito Villalobos PA [address] [facility] [address] [place] [address] 01/15/2026 1:45 PM EDT Office Visit [facility] HEMATOLOGY & ONCOLOGY [address] [facility] [address] [place] [address] Rhonda Bey MD [address]00 [facility] [address] [place] [address] documented as of this encounter Visit Diagnoses Diagnosis Uncontrolled type 2 diabetes mellitus with hyperglycemia Cerebral venous sinus thrombosis, associated with thrombophilia, 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
--- OUTSIDE RECORDS SUMMARY | 2025-02-22 19:46 | XMS_ITS | Encounter Summary ---
[facility] Address [address] [place] [address] Care Team Providers Care Outreach Clinician Name Role Phone Lauren Villalobos MD Primary Care Provider [phone] Encounter Details Date Type Department Care Team (Latest Contact Info) Description 01/09/2025 Travel Social History Tobacco Use Types Packs/Day [...] Description 03/05/2025 2:45 PM EST Office Visit [facility] HEMATOLOGY & ONCOLOGY [address] [facility] [address] [place] [address] Rhonda Bey MD [address] [facility] [address] [place] [address] 03/22/2025 10:00 AM EST Appointment [facility] NONINVASIVE LAB [address] [place] [address] 03/22/2025 12:00 PM EST Appointment [facility] [address] [place] [address] 05/24/2025 2:00 PM EST Office Visit [facility] CARDIOLOGY [address] [facility] [address] [place] [address] Lalito Villalobos PA [address] [facility] [address] [place] [address] 01/15/2026 1:45 PM EDT Office Visit [facility] HEMATOLOGY & ONCOLOGY [address] [facility] [address] [place] [address] Rhonda Bey MD 1700 [facility] [address] [place] [address] documented as of this encounter Visit Diagnoses Not on filedocumented in this encounter Care Teams Outreach Clinician Relationship Specialty Start Date End Date Lauren Villalobos MD [address] [facility] [address] [place] [address] PCP - General Internal Medicine & Pediatrics 04/23/21 documented as of this encounter
--- OUTSIDE RECORDS SUMMARY | 2025-02-22 19:46 | XMS_ITS | Encounter Summary ---
[facility] Address [address] [place] [address] Care Team Providers Care Glass Beveller Name Role Phone Lauren Villalobos MD Primary Care Provider [phone] Reason for Visit * Reason Onset Date Comments Med Refill 01/10/2025 Encounter Details Date Type Department Care Team (Late st Contact Info) Description 01/10/2025 Refill [facility] ENDOCRINOLOGY [address] [address] Karina Du PA 30[address] [place] [address] Uncontrolled type 2 diabetes mellitus with hyperglycemia Social History Tobacco Use Types Packs/Day Years [...] encounter Miscellaneous Notes * Telephone Encounter - Juan Pinon MA - 01/10/2025 10:41 AM EDT Rx Refill Note Requested Prescriptions Pending Prescriptions Disp Refills Continuous Glucose Sensor (FreeStyle Felicia 3 Plus Sensor) 2 each 5 Sig: Use Every 15 (Fifteen) Days. PT NEEDS TO SCHEDULE AN APPOINTMENT AND KEEP IT IN ORDER TO RECEIVE MORE REFILLS Last office visit with prescribing clinician: 06/15/2024 Next office visit with prescribing clinician: No Visit Scheduled Juan Pinon MA 01/10/25, 10:44 EDT documented in this encounter Plan of Treatment Upcoming Encounters Date Type Department Care Team (Late st Contact Info) Description 03/05/2025 2:45 PM EST Office Visit [facility] HEMATOLOGY & ONCOLOGY [address] [facility] [address] [place] [address] Rhonda Bey MD 1700 [facility] [address] [place] [address] 03/22/2025 10:00 AM EST Appointment [facility] NONINVASIVE LAB [address] [facility] 3rd [place] [address] 03/22/2025 12:00 PM EST Appointment [facility] [address] [place] [address] 05/24/2025 2:00 PM EST Office Visit [facility] CARDIOLOGY [address] [facility] [address] [place] [address] Lalito Villalobos PA [address] [facility] [address] [place] [address] 01/15/2026 1:45 PM EDT Office Visit [facility] HEMATOLOGY & ONCOLOGY [address] [facility] [address] [place] [address] Rhonda Bey MD [address] [facility] [address] [place] [address] documented as of this encounter Visit Diagnoses Diagnosis Uncontrolled type 2 diabetes mellitus with hyperglycemia Cerebral venous sinus thrombosis, associated with thrombophilia, acute- Primary Phlebitis and thrombophlebitis of intracranial venous sinuses documented in this encounter Care Teams Glass Beveller Relationship Specialty Start Date End Date Lauren Villalobos MD [address] [place] [address] PCP - General Internal Medicine & Pediatrics 04/23/21 documented as of this encounter
--- OUTSIDE RECORDS SUMMARY | 2025-02-22 19:46 | XMS_ITS | Encounter Summary ---
Author Organization [facility] Address [address] [place] [id number] Care Team Providers Care Sintering Press Operator Name Role Phone Lauren Villalobos MD Primary Care Provider [phone] Reason for Visit * Reason Onset Date Comments Med Refill 01/10/2025 Encounter Details Date Type Department Care Team (Late st Contact Info) Description 01/10/2025 Refill [facility] ENDOCRINOLOGY [address] [facility] 100 [place] [address] Karina Du PA 3084 [facility] 100 [place] [address] Uncontrolled type 2 diabetes mellitus with hyperglycemia [...] 2:45 PM EST Office Visit [facility] HEMATOLOGY & ONCOLOGY [address] [facility] [address] [place] [address] Rhonda Bey MD [address] [facility] [address] [place] [address] 03/22/2025 10:00 AM EST Appointment [facility] NONINVASIVE LAB [address] [facility] 3rd [place] [address] 03/22/2025 12:00 PM EST Appointment [facility] [address] [place] [address] 05/24/2025 2:00 PM EST Office Visit [facility] CARDIOLOGY [address] [facility] [address] [place] [address] Lalito Villalobos PA [address] [facility] [address] [place] [address] 01/15/2026 1:45 PM EDT Office Visit [facility] HEMATOLOGY & ONCOLOGY 17[address] [facility] [address] [place] [address] Rhonda Bey MD 1700 [facility] [address] [place] [address] documented as of this encounter Visit Diagnoses Diagnosis Uncontrolled type 2 diabetes mellitus with hyperglycemia Cerebral venous sinus thrombosis, associated with thrombophilia, acute- Primary Phlebitis and thrombophlebitis of intracranial venous sinuses documented in this encounter Care Teams Sintering Press Operator Relationship Specialty Start Date End Date Lauren Villalobos MD [address] [facility] [address] [place] [address] PCP - General Internal Medicine & Pediatrics 04/23/21 documented as of this encounter
--- OUTSIDE RECORDS SUMMARY | 2025-02-22 19:46 | XMS_ITS | Encounter Summary ---
[facility] Address [address] [place] [address] Care Team Providers Care Horseback Excavator Name Role Phone Lauren Villalobos MD Primary Care Provider [phone] Encounter Details Date Type Department Care Team (Latest Contact Info) Description 02/21/2025 Travel Social History Tobacco Use Types Packs/Day [...] Description 03/05/2025 2:45 PM EST Office Visit [facility] HEMATOLOGY & ONCOLOGY [address] [facility] [address] [place] [address] Rhonda Bey MD [facility] [facility] [address] [place] [address] 03/22/2025 10:00 AM EST Appointment [facility] NONINVASIVE LAB [address] [place] [address] 03/22/2025 12:00 PM EST Appointment [facility] [address] [place] [address] 05/24/2025 2:00 PM EST Office Visit [facility] CARDIOLOGY [address] [facility] [address] [place] [address] Lalito Villalobos PA [address] [facility] [address] [place] [address] 01/15/2026 1:45 PM EDT Office Visit [facility] HEMATOLOGY & ONCOLOGY [address] [facility] [address] [place] [address] Rhonda Bey MD [address] [facility] [address] [place] [address] documented as of this encounter Visit Diagnoses Not on filedocumented in this encounter Care Teams Horseback Excavator Relationship Specialty Start Date End Date Lauren Villalobos MD [address] [facility] [address] [place] [address] PCP - General Internal Medicine & Pediatrics 04/23/21 documented as of this encounter
--- OUTSIDE RECORDS SUMMARY | 2025-02-22 19:46 | XMS_ITS | Encounter Summary ---
Author Organization [facility] Address [address] [place] [address] Care Team Providers Care Direct Sales Consultant Name Role Phone Lauren Jones MD Primary Care Provider [phone] Reason for Visit * Reason Onset Date Comments DR BEY - CLINICAL 02/05/2025 Encounter Details Date Type Department Care Team (Late st Contact Info) Description 02/05/2025 Telephone [facility] HEMATOLOGY & ONCOLOGY [address] [phone] Rhonda Bey MD [address] [place] [address] DR BEY - CLINICAL Social History Tobacco Use Types Packs/Day Years [...] encounter Miscellaneous Notes * Telephone Encounter - Herman Galicia RegSched Rep - 02/05/2025 1:53 PM EDT Called and spoke with patient scheduled appointment. * Telephone Encounter - Saray Escoto RegSched Rep - 02/05/2025 11:06 AM EDT Caller: Dinora Draper Relationship to patient: Self Best call back number: [phone] Chief complaint: CLINICAL Type of visit: FOLLOW UP Requested date: NEXT AVLIABLE Additional notes: PT HAS BEEN ADVISED BY DR JONES TO CONTACT THE OFFICE TO SCHEDULE A FOLLOW UP WITH DR BEY DUE TO A LOW PLATELET COUNT documented in this encounter Plan of Treatment Upcoming Encounters Date Type Department Care Team (Late st Contact Info) Description 03/05/2025 2:45 PM EST Office Visit [facility] HEMATOLOGY & ONCOLOGY 3000 [facility] [address] [place] [address] Rhonda Bey MD [address] [facility] [address] [place] [address] 03/22/2025 10:00 AM EST Appointment [facility] NONINVASIVE LAB [address] [facility] 3rd [place] [address] 03/22/2025 12:00 PM EST Appointment [facility] [address] [place] [address] 05/24/2025 2:00 PM EST Office Visit [facility] CARDIOLOGY [address] [facility] [address] [place] [address] Lalito Villalobos PA [address] [facility] [address] [place] [address] 01/15/2026 1:45 PM EDT Office Visit [facility] HEMATOLOGY & ONCOLOGY [address] [facility] [address] [place] [address] Rhonda Bey MD [address] [facility] [address] [place], [place] [address] documented as of this encounter Visit Diagnoses Not on filedocumented in this encounter Care Teams Direct Sales Consultant Relationship Specialty Start Date End Date Lauren Jones MD 1775 [facility] 201 [place] [address] PCP - General Internal Medicine & Pediatrics 04/23/21 documented as of this encounter
--- OUTSIDE RECORDS SUMMARY | 2025-02-22 19:46 | XMS_ITS | Encounter Summary ---
Author Organization [facility] Address [address] [place] [address] Care Team Providers Care Parachute Officer Name Role Phone Lauren Villalobos MD Primary Care Provider [phone] Reason for Visit * Reason Onset Date Comments [facility] RESULTS 01/10/2025 Encounter Details Date Type Department Care Team (Late st Contact Info) Description 01/10/2025 Telephone [facility] HEMATOLOGY & ONCOLOGY [address] [phone] Rhonda Bey MD 1700 [place] [address] BADIN-LAB RESULTS Social History Tobacco Use Types Packs/Day Years [...] encounter Miscellaneous Notes * Telephone Encounter - Ana María Herrmann RN - 01/11/2025 11:09 AM EDT Patient called back and RN spoke with her. She is having labs done with her PCP next week so she will keep us updated if they look worse. Advised patient to call back at anytime if she wants her labsdrawn and we can check her iron levels. Patient v/u and appreciation. * Telephone Encounter - Ana María Herrmann RN - 01/11/2025 9:11 AM EDT RN called patient back, no answer. LVM to let her know that her iron saturation was 12% and we typically do not give IV iron unless it is below 10% - based on her symptoms we can recheck in a couple weeks if she wants to to see if it has dropped below 10%. All other labs look good. Left call back number for any further questions. * Telephone Encounter - Lindsey Vasquez - 01/10/2025 3:09 PM EDT Patient called she wants to know if her lab results are back? She is not feeling well today. Pleasecall. documented in this encounter Plan of Treatment Upcoming Encounters Date Type Department Care Team (Late st Contact Info) Description 03/05/2025 2:45 PM EST Office Visit [facility] HEMATOLOGY & ONCOLOGY 3000 [facility] 155 [place] [address] Rhonda Bey MD [address] [place] [address] 03/22/2025 10:00 AM EST Appointment [facility] NONINVASIVE LAB [address] [place] [address] 03/22/2025 12:00 PM EST Appointment [facility] CT [address] [place] [address] 05/24/2025 2:00 PM EST Office Visit [facility] CARDIOLOGY 1720 [facility] [address] [place] [address] Lalito Villalobos PA 1720 [facility] [address] [place] [address] 01/15/2026 1:45 PM EDT Office Visit [facility] HEMATOLOGY & ONCOLOGY 1700 [facility] [address] [place] [address] Rhonda Bey MD [address]00 [facility] [address] [place] [address] documented as of this encounter Visit Diagnoses Not on filedocumented in this encounter Care Teams Parachute Officer Relationship Specialty Start Date End Date Lauren Villalobos MD [address]75 [facility] 201 [place] [address] PCP - General Internal Medicine & Pediatrics 04/23/21 documented as of this encounter
--- OUTSIDE RECORDS SUMMARY | 2025-02-22 19:46 | XMS_ITS | Data Portability ---
Author Organization [email or web address] - Misha parsons MD, Main Office Address [address] [place] [address], [facility] [address] [place] [address] Care Team Providers Care Decontamination Worker Name Role Phone YONG JONES Primary Care Provider [phone] Assessment No assessment recorded. Plan of Treatment Reminders Order Date Submit Date Provider Last Modified By Organization Details Last Modified Time Details Appointments None record ed. Lab None record ed. Referral None record ed. Procedures None record ed. Surgeries None record ed. Imaging None record ed. Medication Orders None record ed. Patient TargetsNo targets recorded. Patient Instructions Encounter Date Encounter Id Patient Instructions Last Modified By Organization Details Last Modified Time 01/12/2025 [id number] Carpal Tunnel Syndrome: Care Instructions [email or web address] Not available 01/12/2025 12:20:37 Reason for Referral None Reported. Results Created Date Observation Date Name Description Value Unit Range Abnormal Flag Note LastModifiedBy Organization Detail LastModifiedTime 01/13/2001/12/2025 elect romyo gram + nerve condu ction study No observ ation record ed. BARCODE Not Available 2024 12:58:02 Result Notes None recorded. Problems No Known Problems Procedures Surgical History Date Name Laterality Status Provider Name and Address Organization Details Recorded Time 01/12/2025 NCV/EMG completed Conner Cueva MD 01/12/2025 12:20:14 Imaging Results None recorded. Procedure Notes None recorded. Medical Equipment None Reported. Allergies No known drug allergies Medications Not known to be on any medication Vitals None Recorded Social History None recorded. Functional Status None recorded. Mental Status None recorded. Family History Nothing Reported. Medical History No medical history recorded. Gynecological HistoryNo gynecological history recorded. Obstetrics History GPAL:G 0 P 0 0 0 0 Past Encounters Encounter ID Performer Location Encounter Start Date Encounter Closed Date Diagnosis/Indication Diagnosis SNOMED-CT Code Diagnosis ICD10 Code Diagnosis IMO Codes Diagnosis Note [id number] Misha Cueva MD Main Office [address] [facility], [facility] [address] [place] [address] 01/12/2025 10:37:27 01/12/2025 12:25:10 Bilateral carpal tunnel syndrome 8716903133 [id number] G56.03 [id number] Severe right, moderate to severe left CTS. Health Concerns Section Related Observation LastModified by Organization Detai ls LastModified Time None Recorded Concern Status LastModified by Organization Details LastModified Time None Recorded Advance Directives Directive None Recorded Payers Insurance Date Sequence Insurance Name Policy Number Policy Dhillon Covered Member ID Dhillon Member ID Guarantor Name 01/12/2025 1 [place] [employer] [place] [employer] [place] [employer] [id number] Dinora Draper [id number] Dinora Draper OBGyn Episode No OBEpisode recorded.
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
[2025-02-22 19:52] VITALS: BP 151/86; PULSE 85; RESP 16; O2SAT 97
[2025-02-22] MEDS: METHOCARBAMOL 500MG TABLET 500 MG PO (19:57)
[2025-02-22] MEDS: ACETAMINOPHEN 500MG TAB 1000 MG PO (19:57)
[2025-02-22 20:00] VITALS: BP 124/75; PULSE 73; O2SAT 96
[2025-02-22 20:30] VITALS: BP 105/79; PULSE 64; O2SAT 98
[2025-02-22 21:10] VITALS: BP 122/77; PULSE 80; RESP 18; TEMP 37; O2SAT 78
== END 2025-02-22 21:25 | disposition home or self-care (01) ==
PROVIDERS: Emergency Provider Student in an Organized Health Care Education/Training Program
DX: S16.1XXA Strain of muscle, fascia and tendon at neck level, initial encounter (principal); V49.40XA Driver injured in collision with unspecified motor vehicles in traffic accident, initial encounter
CPT/HCPCS: 72125; 99284; 99285